=== PATIENT | female | born 1945 | race Caucasian/White ===

== ENCOUNTER 2016-10-17 03:42 | Inpatient (IN) | payer MEDICARE, MEDICAID ==
[~2016-10-17] VITALS: Ht 152.4 cm; Wt 54.4 kg
[~2016-10-17 03:42] MED LIST: ESCI20TA PO; HYDR8TAB2 PO; METO5TAB87 PO; MIRT45TA PO; OMEP40CA37 PO; QUET100T PO; QUET25TA PO; SIMV10TA6 PO; TEMA15CA5 PO; TRAZ-144 PO
--- NOTE | 2016-10-17 03:50 | NUR ---
BB RA 88; PT STATES RIGHT HIP/ LEG PAIN S/P GLF. PT AOX4 RR EVEN AND UNLABORED. NO SOB NOTED. NAD NOTED. NO NVD AT THIS TIME. PT NOT DIAPHORETIC. PT GOWNED AND PLACED ON MONITOR. PT NOTED WITH RIGHT LEG SHORTENING. DR. BARNES AT BEDSIDE FOR EVAL.
[2016-10-17] MEDS ORDERED: ONDANSETRON HCL/PF 4 MG/2 ML VIAL ONE (03:59)
[2016-10-17] MEDS ORDERED: HYDROMORPHONE 1 MG/1 ML DISP.SYRIN ONE ×4 (03:59→05:58)
[2016-10-17] MEDS ORDERED: HYDROMORPHONE INJ 2 MG/ML DISP.SYRIN IV ONE (04:00)
[2016-10-17] MEDS ORDERED: ONDANSETRON HCL/PF 4 MG/2 ML VIAL IVP ONE (04:00)
--- NOTE | 2016-10-17 04:17 | NUR ---
XRAY AT BEDSIDE
--- NOTE | 2016-10-17 04:28 | NUR ---
XRAY AT BESIDE FOR RIGHT KNEE
[2016-10-17] MEDS ORDERED: IV NS 0.9% 500 ML IV ONE (04:40)
[2016-10-17] MEDS ORDERED: IV SET PRIMARY 1 EA INFUS.SET MC ONE (04:40)
--- NOTE | 2016-10-17 04:54 | NUR ---
INSERTED F/C 16FR. VERBAL CONSENT BY PT. URINE COLLECTED. CALLED LAB FOR WOUND CARE SPECIALIST
--- NOTE | 2016-10-17 04:58 | NUR ---
RICCARDO MIRZA PAGED. WAITING FOR CALL BACK.
--- NOTE | 2016-10-17 04:59 | NUR ---
PT ASSIGNED TO 315-2
[2016-10-17] MEDS ORDERED: HYDROMORPHONE 1 MG/1 ML DISP.SYRIN IV ONE ×3 (05:00→06:30)
--- NOTE | 2016-10-17 05:00 | NUR ---
DR. BARNES SPEAKING TO DR. MILLER REGARDING ADMISSION
--- NOTE | 2016-10-17 05:02 | NUR ---
LAB AT BEDSIDE FOR BLOOD DRAW.
--- NOTE | 2016-10-17 05:07 | NUR ---
REPORT GIVEN TO FENG CARLSON FOR MS 315-2
--- NOTE | 2016-10-17 05:19 | NUR ---
VERBAL ORDERS PER DR. BARNES TO GIVE IVP DILAUDID 1MG ONE TIME. PT MEDICATED. PT ALSO WITH RIGHT LEG SPLINT.
[2016-10-17] MEDS ORDERED: IV NS 0.9% 1,000 ML BAG IV ONE (05:30)
--- NOTE | 2016-10-17 05:40 | NUR ---
DR. BARNES SPEAKING TO DR. MIRZA FOR ORTHO CONSULT.
--- NOTE | 2016-10-17 06:03 | NUR ---
VERBAL ORDERS PER DR BARNES TO GIVE IVP DILAUDID 1MG ONE TIME. PT MEDICATED ORDERED.
[2016-10-17] MEDS ORDERED: IV D5/0.45 NACL 1,000 ML IV PRN (06:30)
[2016-10-17] MEDS ORDERED: ONDANSETRON HCL/PF 4 MG/2 ML VIAL IVP PRN (06:30)
[2016-10-17] MEDS ORDERED: ENALAPRILAT DIHYD. (2.5MG/ML) 1.25 MG/ML VIAL IV PRN (06:30)
[2016-10-17] MEDS ORDERED: ACETAMINOPHEN 650 MG/SUPP.RECT RC PRN (06:30)
[2016-10-17 06:39] LABS: CALCIUM, SERUM 8.2 mg/dL (8.5-10.1); CREATININE 0.4 mg/dL (0.6-1.3)
[2016-10-17 06:41] LABS: BASOPHILS % (AUTO) 0.2 % (0.0-2.0); EOSINOPHILS % (AUTO) 0.1 % (0.0-6.0); HEMATOCRIT 39 % (33-45); HEMOGLOBIN 13.2 g/dL (11.5-14.8); LYMPHOCYTES # (AUTO) 1.2 /CMM (0.8-4.8); LYMPHOCYTES % (AUTO) 14.1 % (20.0-44.0); MEAN CORPUSCULAR HEMOGLOBIN 32 PG (26.0-33.0); MEAN CORPUSCULAR HGB CONC 34 g/dl (31.0-36.0); MEAN CORPUSCULAR VOLUME 94 fL (82-100); MONOCYTES # (AUTO) 0.7 /CMM (0.1-1.30); NEUTROPHILS # (AUTO) 6.8 /CMM (1.8-8.9); NEUTROPHILS % (AUTO) 77.6 % (43.0-81.0); PLATELET COUNT (AUTO) 345 /CMM (150-450); RDW COEFFICIENT OF VARIATION 13.4 (11.5-15.0); RED BLOOD CELL COUNT(AUTO) 4.12 MIL/uL (4.0-5.2); WHITE BLOOD COUNT (AUTO) 8.8 K/uL (4.3-11.0)
[2016-10-17 06:43] LABS: POTASSIUM 2.5 mmol/L (3.5-5.1)
[2016-10-17 06:48] LABS: INR 0.92 (0.87-1.13); PROTHROMBIN TIME 9.8 SECS (9.5-12.7)
[2016-10-17] MEDS ORDERED: IV PREMIX NS + 40 MEQ KCL 40 MEQ/L BAG IV ONE (06:50)
[2016-10-17] MEDS ORDERED: IV SET PRIMARY PUMP SET 1 EA INFUS.SET MC ONE ×2 (06:51→12:27)
[2016-10-17] MEDS ORDERED: Potassium Chloride 40 MEQ in IV NS 0.9% 1,000 ML IV ONE (07:00)
--- NOTE | 2016-10-17 07:00 | NUR ---
RECEIVED IVPB MEDICATION KCL 40MED IN NS 1000C PER RN SUP PYXIS
--- NOTE | 2016-10-17 07:06 | NUR ---
INFORMED TELE CRISTY STEWART PT IS NOW TELE PT.
--- NOTE | 2016-10-17 07:24 | NUR ---
PT TRANSFERED PER ACLS PROTOCOL.
--- NOTE | 2016-10-17 07:30 | NUR ---
RECEIVED PT FROM ER. PT AWAKE ALERT AND ORIENTED X 4. RESPIRATIONS EVEN AND UNLABORED. NO ACUTE DISTRESS NOTED. MUNOZ CATHETER IN PLACE WITH CLEAR YELLOW URINE. IV SITE PATENT AND INTACT. SKIN INTACT. PATIENT COMPLAINT OF PAIN 8/10 ON R LEG, PAIN MANAGEMENT INITIATED. BED IN LOWEST POSITION. SIDE RAILS UP. BEDSIDE TABLE WITHIN REACH. CALL LIGHT WITH IN REACH. WILL CONTINUE TO MONITOR.
[2016-10-17 08:00] VITALS: BP 148/69
[2016-10-17] MEDS ORDERED: Medication Not On Formulary EA (Escitalopram Oxalate (Lexapro) 20 MG) PO SCH (09:00)
[2016-10-17] MEDS: HYDROMORPHONE INJ 2 MG/ML DISP.SYRIN IV PRN ×6 (09:08→23:53)
[2016-10-17 09:16] LABS: THYROID STIMULATING HORMONE 2.235 uIU/mL (0.358-3.74)
[2016-10-17 09:37] LABS: MAGNESIUM 1.7 mg/dL (1.8-2.4); PHOSPHORUS 2.4 mg/dL (2.5-4.9)
[2016-10-17] MEDS ORDERED: CLONIDINE HCL 0.2MG/24H PTWK 1 EA PATCH TD SCH (10:00)
[2016-10-17] MEDS ORDERED: ESCITALOPRAM OXALATE (10 MG) 10 MG TABLET PO SCH (10:03)
[2016-10-17] MEDS: POTASSIUM CHLORIDE 20 MEQ TAB.PRT.SR PO SCH ×3 (10:23→12:32)
--- NOTE | 2016-10-17 11:19 | NUR ---
VTE SCORE 2. NO NEED FOR CHEMICAL PROPHYLAXIS PER DR VASQUEZ.
[2016-10-17 12:00] VITALS: BP 150/80
--- NOTE | 2016-10-17 12:00 | NUR ---
PT IS C/O DISCOMFORT ON MAG IV RUNNING AT 100 ML/HR.ADJUSTED ACCORDING TO PT'S COMFORT.WILL MONITOR.
[2016-10-17] MEDS: NICOTINE PATCH (21MG) 21 MG PATCH.TD24 TD SCH (12:08)
[2016-10-17] MEDS: QUETIAPINE FUMARATE 25 MG TABLET PO SCH ×3 (12:24→16:20)
[2016-10-17] MEDS: SIMVASTATIN 10 MG TABLET PO SCH (12:24)
[2016-10-17 12:25] VITALS: BP 158/80
[2016-10-17] MEDS ORDERED: SECONDARY IV SET 1 EA INFUS.SET MC ONE (12:28)
[2016-10-17] MEDS: Magnesium 1GM/D5W 100ML PREMIX 100 ML IV SCH ×2 (12:53→15:19)
[2016-10-17] MEDS ORDERED: METOCLOPRAMIDE HCL 10 MG TABLET PO SCH (13:00)
[2016-10-17] MEDS ORDERED: POTASSIUM PHOSPHATE MM 7.5 MMOL in IV D5W 100 ML IV SCH (13:00)
--- NOTE | 2016-10-17 14:06 | NUR ---
NOTIFIED SHREYAS ROSALES IF HE'S GOING TO SEE THE PT.BOBBY STATED THAT SX WILL BE DONE NOT TILL TOMORROW.NOTIFIED DR VASQUEZ WITH ORDERS TO LET PT EAT DINNER AND PUT HER ON NPO POST MIDNIGHT.
[2016-10-17 14:47] LABS: APPEARANCE,URINE CLEAR (CLEAR); BILIRUBIN,URINE NEGATIVE (NEGATIVE); BLOOD, URINE NEGATIVE Ery/uL (NEGATIVE); COLOR,URINE YELLOW (YELLOW); KETONES,URINE NEGATIVE (NEGATIVE); LEUKOCYTE ESTERASE ,URINE NEGATIVE (NEGATIVE); NITRITE, URINE NEGATIVE (NEGATIVE); PH,URINE 7.5 (5.0-8.0); PROTEIN,URINE NEGATIVE (NEGATIVE); UGLUCOSE NEGATIVE (NEGATIVE); UROBILINOGEN,URINE 0.2 EU/dL (0.2)
[2016-10-17] MEDS ORDERED: oxyCODONE IR immediate release 5 MG CAPSULE PO PRN (15:00)
[2016-10-17] MEDS: PREGABALIN 100 MG CAPSULE PO SCH ×2 (15:23→22:38)
[2016-10-17 16:00] VITALS: BP 142/71
[2016-10-17] MEDS: oxyCODONE IR immediate release 5 MG CAPSULE PO PRN ×2 (16:44→21:19)
--- NOTE | 2016-10-17 16:56 | NUR ---
PT ACCIDENTALLY DROPPED THE OXYCODONE HCL 10 MG PO AND TOOK NEW PILLS FROM THE PYX[facility].DISPENSED OLD OXYCODONE HCL 10 MG PILLS IN THE DISPENSER WITNESSED BY CO-RN,ASUNCION.
--- NOTE | 2016-10-17 18:00 | NUR ---
PT RESTING IN BED AND SIGNED ALL THE CONSENTS FOR RETROGRADE NAILING OF RT DISTAL FEMUR.INSTRUCTED TO BE NPO POST MIDNIGHT.PAIN MGT GIVEN EFFECTIVE WITH DILAUDID 2 MG IV AND OXYCODONE 10 MG PO.ENDORSED TO NIGHT NURSE CARE.
--- NOTE | 2016-10-17 19:30 | NUR ---
VENEER SORTER NOTE RECEIVED PATIENT AWAKE AND ALERT IN BED. NO RESPIRATORY DISTRESS OR SOB NOTED. STATES THAT SHE IS HAVING 9/10 PAIN TO RIGHT HIP. WILL ADMINISTER MEDICATION ORDERED. RELAXATION TECHNIQUES PROVIDED. PATIENT REFUSING TO BE REPOSITIONED AT THIS TIME. BED LOCKED AND IN LOWEST POSITION. SIDE RAILS UP, CALL LIGHT WITHIN REACH. WILL CONTINUE TO MONITOR.
[2016-10-17 20:00] VITALS: BP 132/71
--- NOTE | 2016-10-17 20:00 | NUR ---
SHEET METAL SHOP SUPERVISOR NOTE PATIENT REFUSING TO BE REPOSITIONED AT THIS TIME. EXPLAINED IMPORTANCE. CONTINUES TO REFUSE. WILL TRY AGAIN LATER.
[2016-10-17] MEDS: TRAZODONE 50 MG TABLET PO SCH (21:18)
[2016-10-17] MEDS: QUETIAPINE FUMARATE 100 MG TABLET PO SCH (21:18)
[2016-10-17 22:00] VITALS: BP 132/71
[2016-10-17] MEDS ORDERED: MIRTAZAPINE 15 MG TABLET PO SCH ×2 (22:00)
--- NOTE | 2016-10-17 22:00 | NUR ---
RESTAURANT AREA MANAGER NOTE PATIENT REFUSING TO BE REPOSITIONED AT THIS TIME. WILL TRY AGAIN LATER.
[2016-10-17] MEDS: TEMAZEPAM 15 MG CAPSULE PO SCH (22:38)
[2016-10-18] VITALS: BP 119/67
--- NOTE | 2016-10-18 | NUR ---
SENIOR NET DEVELOPER ARCHITECT NOTE PATIENT NPO AT THIS TIME FOR PROCEDURE IN AM. CONSENT SIGNED AND PLACED IN CHART.
[2016-10-18] MEDS: HYDROMORPHONE INJ 2 MG/ML DISP.SYRIN IV PRN ×6 (02:53→21:43)
[2016-10-18 04:00] VITALS: BP 111/65
--- NOTE | 2016-10-18 06:20 | NUR ---
COLLECTOR OF INTERNAL REVENUE NOTE SR 68. PATIENT STABLE. RECEIVED DILAUDID 2MG IVP @ 0600 FOR 8/10 PAIN TO RIGHT HIP. PATIENT NPO FOR SURGERY. CONSENT AND PRE-OP CHECKLIST IN CHART. WILL ENDORSE TO DAY SHIFT FOR ELLIS.
[2016-10-18 07:10] VITALS: BP 117/72
[2016-10-18] MEDS: PANTOPRAZOLE 40 MG TABLET.DR PO SCH (07:30)
[2016-10-18 07:56] LABS: BASOPHILS % (AUTO) 0.2 % (0.0-2.0); EOSINOPHILS # (AUTO) 0.1 /CMM (0.0-0.7); EOSINOPHILS % (AUTO) 1.6 % (0.0-6.0); HEMATOCRIT 31 % (33-45); HEMOGLOBIN 10.7 g/dL (11.5-14.8); LYMPHOCYTES # (AUTO) 2.2 /CMM (0.8-4.8); LYMPHOCYTES % (AUTO) 25.4 % (20.0-44.0); MEAN CORPUSCULAR HEMOGLOBIN 33 PG (26.0-33.0); MEAN CORPUSCULAR HGB CONC 34 g/dl (31.0-36.0); MEAN CORPUSCULAR VOLUME 96 fL (82-100); MONOCYTES # (AUTO) 1.2 /CMM (0.1-1.30); MONOCYTES % (AUTO) 14.4 % (2.0-12.0); NEUTROPHILS % (AUTO) 58.4 % (43.0-81.0); PLATELET COUNT (AUTO) 295 /CMM (150-450); RDW COEFFICIENT OF VARIATION 13.3 (11.5-15.0); RED BLOOD CELL COUNT(AUTO) 3.26 MIL/uL (4.0-5.2); WHITE BLOOD COUNT (AUTO) 8.6 K/uL (4.3-11.0)
[2016-10-18 08:00] VITALS: BP 117/72
[2016-10-18 08:30] LABS: ALBUMIN 2.1 g/dL (3.4-5.0); BILIRUBIN,TOTAL 0.3 mg/dL (0.2-1.0); CALCIUM, SERUM 7.6 mg/dL (8.5-10.1); CREATININE 0.3 mg/dL (0.6-1.3); PHOSPHORUS 2.2 mg/dL (2.5-4.9); POTASSIUM 3.6 mmol/L (3.5-5.1); TOTAL PROTEIN, SERUM 5.2 g/dL (6.4-8.2)
[2016-10-18] MEDS: PREGABALIN 100 MG CAPSULE PO SCH ×3 (09:00→18:45)
[2016-10-18] MEDS: SIMVASTATIN 10 MG TABLET PO SCH (09:00)
[2016-10-18] MEDS: QUETIAPINE FUMARATE 25 MG TABLET PO SCH ×3 (09:00→18:45)
[2016-10-18] MEDS: NICOTINE PATCH (21MG) 21 MG PATCH.TD24 TD SCH (09:06)
[2016-10-18] MEDS ORDERED: Sodium Phosphate 15 MMOL in IV D5W 250 ML IV ONE (10:00)
[2016-10-18] MEDS ORDERED: BACITRACIN 50000 UNITS/VIAL ONE (11:00)
[2016-10-18] MEDS ORDERED: CLINDAMYCIN 900 MG/6 ML VIAL ONE (11:21)
--- NOTE | 2016-10-18 11:22 | NUR ---
LEFT TO OR AT THIS TIME IN STABLE CONDITION. KARLOS-OPO NURSE AWARE OF DILAUDID @ 0900 ADMIN. PATIENT NPO SINCE LAST NIGHT. VS CHECKED AND STABLE. LAC IV PATENT, NON-TENDER. NO COMPLICATIONS WITH MUNOZ CATHETER.
[2016-10-18] MEDS ORDERED: HYDROMORPHONE INJ 2 MG/ML DISP.SYRIN ONE (11:28)
[2016-10-18] MEDS ORDERED: NEUTRA PHOS 1 POWD.PACKET PO ONE (12:00)
[2016-10-18] MEDS ORDERED: BUPIVACAINE 0.5 % PF 150 MG/30 ML VIAL ONE (12:37)
[2016-10-18] MEDS ORDERED: HYDROMORPHONE 1 MG/1 ML DISP.SYRIN ONE ×2 (13:37→13:50)
[2016-10-18] MEDS ORDERED: ANESTHESIA TRAY IN PYXIS 1 EA TRAY MC ONE (14:23)
[2016-10-18] MEDS: oxyCODONE IR immediate release 5 MG CAPSULE PO PRN (15:56)
[2016-10-18 16:00] VITALS: BP 120/84
[2016-10-18] MEDS ORDERED: K PHOS NEUTRAL 250 MG TABLET PO ONE (16:00)
--- NOTE | 2016-10-18 16:03 | NUR ---
patient crying with 10/10 pain. Administered Dilaudid and Oxycodone as ordered. after administration BP 122/84, hr 75, o2 sat 95% on room air, RR 14. provided education and comfort measures at length to console patient.
--- NOTE | 2016-10-18 18:50 | NUR ---
patient consuming adequate PO intake, calin gave verbal orders to d/c iv fluids. patient complaining of 190/10m pain at this time. bp 160/74, hr 72, o2 sat 95%, admin dilaudid
--- NOTE | 2016-10-18 19:35 | NUR ---
POLICE CRIME SCENE TECHNICIAN NOTE RECEIVED PATIENT FROM DAY SHIFT, PATIENT HAD SX TODAY ON RIGHT FEMUR IM RODDING, NO S/S OF RESPIRATORY DISTRESS AND COMPLAINS OF PAIN ON RIGHT LEG. TELE MONITOR SR. SRX2, BED IN LOW POSITION, CALL LIGHT WITHIN REACH, WILL CONTINUE TO MONITOR PATIENT. Addendum: 10/18/16 at 2210 by JASON FINLEY RN MUNOZ CATH PRESENT WITH CLEAR YELLOW URINE.
--- NOTE | 2016-10-18 19:47 | NUR ---
end of shift VS, LOC and breathing stable at end of shift. handed off report. educated patient on caution with narcotic use this shift.
[2016-10-18 20:00] VITALS: BP 145/76
[2016-10-18] MEDS: TRAZODONE 50 MG TABLET PO SCH (21:43)
[2016-10-18] MEDS: QUETIAPINE FUMARATE 100 MG TABLET PO SCH (21:43)
[2016-10-18] MEDS: TEMAZEPAM 15 MG CAPSULE PO SCH (22:46)
[2016-10-18] MEDS ORDERED: SECONDARY IV SET 1 EA INFUS.SET MC ONE ×2 (23:06→23:16)
[2016-10-18] MEDS: CLINDAMYCIN 900 MG in IV D5W 50 ML IV SCH (23:26)
[2016-10-19] VITALS: BP 124/68
[2016-10-19 04:00] VITALS: BP 135/75
[2016-10-19] MEDS: HYDROMORPHONE INJ 2 MG/ML DISP.SYRIN IV PRN ×7 (05:26→23:31)
--- NOTE | 2016-10-19 06:43 | NUR ---
HOTEL SERVICES SUPERVISOR NOTE PATIENT IS RESTING IN BED COMFORTABLY, NO S/S OF RESPIRATORY DISTRESS AND COMPLAINS OF PAIN ON RIGHT LEG. IV ON LEFT AC IS PATENT AND INTACT, HL ONLY. DILAUDID GIVEN AT 0530 PER PATIENT'S REQUEST, PAIN LEVEL WAS 9/10. TELE SR 83. WILL ENDORSE TO DAY SHIFT FOR ELLIS.
[2016-10-19] MEDS: PANTOPRAZOLE 40 MG TABLET.DR PO SCH (07:30)
[2016-10-19 08:00] VITALS: BP 139/83
--- NOTE | 2016-10-19 08:00 | NUR ---
MS RN RECEIVED ON BED, AWAKE,ALERT,ORIENTED X4,NOT IN ANY FORM OF DISTRESS, RESPIRATIONS EVEN AND UNLABORED,NO SOB NOTED, LUNGS ARE CLEAR,ABDOMEN SOFT,POSITIVE BOWEL SOUNDS / S/P RIGHT KNEE SX, DENIES PAIN, WILL MONITOR PATIENT'S CONDITION.
[2016-10-19 08:58] LABS: CALCIUM, SERUM 8.1 mg/dL (8.5-10.1); CREATININE 0.4 mg/dL (0.6-1.3); PHOSPHORUS 3.1 mg/dL (2.5-4.9); POTASSIUM 3.3 mmol/L (3.5-5.1)
[2016-10-19] MEDS: NICOTINE PATCH (21MG) 21 MG PATCH.TD24 TD SCH (09:00)
[2016-10-19] MEDS: ENOXAPARIN SODIUM 40 MG/0.4 ML DISP.SYRIN SQ SCH (09:00)
[2016-10-19] MEDS: SIMVASTATIN 10 MG TABLET PO SCH (09:00)
[2016-10-19] MEDS: PREGABALIN 100 MG CAPSULE PO SCH ×3 (09:00→17:28)
[2016-10-19] MEDS: QUETIAPINE FUMARATE 25 MG TABLET PO SCH ×3 (09:00→17:28)
[2016-10-19] MEDS ORDERED: ERGOCALCIFEROL (VITAMIN D 2) 50,000 UNIT CAPSULE PO SCH (09:30)
--- NOTE | 2016-10-19 09:50 | NUR ---
MS TONEY BREAKFAST SERVED,DUE MEDS GIVEN,TOLERATED WELL,.
--- NOTE | 2016-10-19 11:00 | NUR ---
MS RN WAS SEEN BY PT,TOLERATED WELL.
[2016-10-19] MEDS: CLINDAMYCIN 900 MG in IV D5W 50 ML IV SCH (12:21)
[2016-10-19] MEDS ORDERED: POTASSIUM CHLORIDE 20 MEQ TAB.PRT.SR PO SCH (12:30)
--- NOTE | 2016-10-19 18:00 | NUR ---
MS RN ON BED,NO DISTRESS NOTED,ALL NEEDS ATTENDED.
--- NOTE | 2016-10-19 19:30 | NUR ---
MS RN NOTE RECEIVED PATIENT FROM DAY SHIFT, PATIENT IS ALERT AND ORIENTEDX3, DENIES RESPIRATORY DISTRESS AND COMPLAINS OF PAIN ON RIGHT LEG DUE TO SX. WILL ADMINISTER PAIN MED WHEN IT IS DUE. IV ON LEFT WRIST IS PATENT AND INTACT, HL. SRX2, BED IN LOW POSITION, CALL LIGHT WITHIN REACH, WILL CONTINUE TO MONITOR PATIENT.
[2016-10-19 20:00] VITALS: BP 103/64
[2016-10-19] MEDS: QUETIAPINE FUMARATE 100 MG TABLET PO SCH (22:15)
[2016-10-19] MEDS: TRAZODONE 50 MG TABLET PO SCH (22:15)
[2016-10-19] MEDS: TEMAZEPAM 15 MG CAPSULE PO SCH (22:15)
[2016-10-20] MEDS: oxyCODONE IR immediate release 5 MG CAPSULE PO PRN ×3 (00:16→18:52)
--- NOTE | 2016-10-20 00:20 | NUR ---
MS RN NOTE PATIENT IS CRYING AND MOANING FOR PAIN. OXY IR 10MG PO GIVEN. WILL MONITOR EFFECTIVENESS.
[2016-10-20] MEDS: HYDROMORPHONE INJ 2 MG/ML DISP.SYRIN IV PRN ×7 (02:28→21:11)
--- NOTE | 2016-10-20 06:38 | NUR ---
MS RN NOTE PATIENT IS RESTING IN BED COMFORTABLY, NO S/S OF RESPIRATORY DISTRESS AND NO FACIAL GRIMACE NOTED FOR PAIN. IV ON LEFT WRIST IS PATENT AND INTACT, HL. WILL ENDORSE TO DAY SHIFT FOR ELLIS.
--- NOTE | 2016-10-20 07:30 | NUR ---
MS/RN OPENING NOTE PT. IS IN BED, AWAKE, A&OX4. NO SOB. NO S/S OF ACUTE DISTRESS. PT. HAS LEFT HAND IV ACCESS. BED IS IN LOW POSITION, 2 RAILS UP, CALL LIGHT WITHIN REACH, AND ALL NEEDS MET. ADVISED PT. TO USE CALL LIGHT FOR ASSISTANCE. WILL CONTINUE TO ASSESS AND MONITOR.
[2016-10-20 07:31] LABS: CALCIUM, SERUM 8.1 mg/dL (8.5-10.1); CREATININE 0.3 mg/dL (0.6-1.3); POTASSIUM 3.6 mmol/L (3.5-5.1)
[2016-10-20 08:00] VITALS: BP_SYST 130; BP_DIAS 7; BP_DIAS 76
[2016-10-20] MEDS: PANTOPRAZOLE 40 MG TABLET.DR PO SCH (08:52)
[2016-10-20] MEDS: PREGABALIN 100 MG CAPSULE PO SCH ×3 (08:52→18:00)
[2016-10-20] MEDS: SIMVASTATIN 10 MG TABLET PO SCH (08:52)
[2016-10-20] MEDS: NICOTINE PATCH (21MG) 21 MG PATCH.TD24 TD SCH (08:53)
[2016-10-20] MEDS: ENOXAPARIN SODIUM 40 MG/0.4 ML DISP.SYRIN SQ SCH (09:00)
--- NOTE | 2016-10-20 09:00 | NUR ---
MS/RN NOTES PT. REFUSED LOVENOX DUE TO PT. SAYING THE INJECTION IS TOO PAINFUL. LOVENOX WAS NOT GIVEN.
[2016-10-20] MEDS: QUETIAPINE FUMARATE 25 MG TABLET PO SCH ×3 (09:05→18:00)
[2016-10-20] MEDS: TIZANIDINE HCL 4 MG TABLET PO SCH ×2 (10:10→21:11)
[2016-10-20] MEDS ORDERED: IPRATROPIUM NEB FS 0.5 MG/2.5 ML AMPUL.NEB NEB PRN (10:30)
[2016-10-20] MEDS ORDERED: ALBUTEROL FS 2.5 MG/0.5 ML VIAL.NEB NEB PRN (10:30)
[2016-10-20] MEDS ORDERED: oxyCODONE IR immediate release 5 MG CAPSULE PO PRN (11:00)
--- NOTE | 2016-10-20 14:12 | NUR ---
MS/RN NOTES PT. WAS SEEN BY PHYSICAL THERAPY. PER PT. NO WEIGHT BEARING ON RIGHT LEG PER PHYSICAL THERAPIST. PT. WAS ABLE TO SIT AT THE EDGE OF THE BED TODAY, BUT WAS UNABLE TO STAND.
[2016-10-20 15:44] LABS: BASOPHILS % (AUTO) 0.3 % (0.0-2.0); EOSINOPHILS # (AUTO) 0.2 /CMM (0.0-0.7); EOSINOPHILS % (AUTO) 1.9 % (0.0-6.0); HEMATOCRIT 29 % (33-45); HEMOGLOBIN 9.8 g/dL (11.5-14.8); LYMPHOCYTES # (AUTO) 2.7 /CMM (0.8-4.8); MEAN CORPUSCULAR HEMOGLOBIN 32 PG (26.0-33.0); MEAN CORPUSCULAR HGB CONC 34 g/dl (31.0-36.0); MEAN CORPUSCULAR VOLUME 95 fL (82-100); MONOCYTES # (AUTO) 1.3 /CMM (0.1-1.30); MONOCYTES % (AUTO) 10.9 % (2.0-12.0); NEUTROPHILS # (AUTO) 7.6 /CMM (1.8-8.9); NEUTROPHILS % (AUTO) 63.9 % (43.0-81.0); PLATELET COUNT (AUTO) 351 /CMM (150-450); RDW COEFFICIENT OF VARIATION 13.1 (11.5-15.0); RED BLOOD CELL COUNT(AUTO) 3.06 MIL/uL (4.0-5.2); WHITE BLOOD COUNT (AUTO) 11.9 K/uL (4.3-11.0)
[2016-10-20 15:59] LABS: CALCIUM, SERUM 8.4 mg/dL (8.5-10.1); CREATININE 0.4 mg/dL (0.6-1.3); POTASSIUM 4.1 mmol/L (3.5-5.1)
[2016-10-20 16:00] VITALS: BP 119/70
--- NOTE | 2016-10-20 19:45 | NUR ---
MS/RN CLOSING NOTE PT. IS IN BED AWAKE, A&OX4. NO SOB, NO S/S OF ACUTE DISTRESS. PT. HAS LEFT HAND IV ACCESS. BED IS IN LOW POSITION, INITIAL SURGICAL DRESSING WAS CHANGED BY DOCTOR, RIGHT LEG IS WRAPPED IN BANDAGE WITH NO SIGNS OF DRAINAGE. PT. IS WEARING DVT PUMPS ON BOTH LEGS. BED IS IN LOW POSITION, 2 SIDE RAILS UP , AND ALL NEEDS ATTENDED TO. ADVISED PT. TO USE CALL LIGHT FOR ASSISTANCE.
--- NOTE | 2016-10-20 19:45 | NUR ---
RN OPENING NOTES RECEIVED REPORT FROM RADHA RNEVELYN. FOUND Pt AWAKE IN BED. NO S/S OF ACUTE DISTRESS OR SOB NOTED. Pt IS A/OX4. Pt C/O PAIN, WILL PROVIDE PAIN MED WHEN TIME IS DUE. IV ACCESS L WRIST #24G, SL. SAFETY MEASURES IN PLACE. BED LOW, LOCKED, HOB ELEVATED, SIDE RAILS UP, BED ALARM ON, CALL LIGHT AND BEDSIDE TABLE WITHIN REACH. WILL CONTINUE TO MONITOR Pt THROUGHOUT THE NIGHT FOR SAFETY
[2016-10-20 20:00] VITALS: BP 110/63
[2016-10-20] MEDS: TEMAZEPAM 15 MG CAPSULE PO SCH (21:59)
[2016-10-20] MEDS: TRAZODONE 50 MG TABLET PO SCH (21:59)
[2016-10-20] MEDS: QUETIAPINE FUMARATE 100 MG TABLET PO SCH (21:59)
[2016-10-21] MEDS: HYDROMORPHONE INJ 2 MG/ML DISP.SYRIN IV PRN ×3 (06:14→13:08)
[2016-10-21 06:47] LABS: CALCIUM, SERUM 8.7 mg/dL (8.5-10.1); CREATININE 0.4 mg/dL (0.6-1.3); POTASSIUM 3.9 mmol/L (3.5-5.1)
--- NOTE | 2016-10-21 06:48 | NUR ---
RN CLOSING NOTES NO SIGNIFICANT CHANGES DURING THE NIGHT. NO S/S OF ACUTE DISTRESS OR SOB. ALL NEEDS MET AND ATTENDED TO. WILL ENDORSE TO DAYSHIFT RN FOR Pt's ELLIS.
--- NOTE | 2016-10-21 07:30 | NUR ---
MS/RN OPENING NOTES PT. IS IN BED AWAKE, A&OX4. NO SOB, NO S/S OF ACUTE DISTRESS. BED IS IN LOW POSITION, CALL LIGHT WITHIN REACH, AND ALL NEEDS MET. WILL CONTINUE TO ASSESS AND MONITOR.
[2016-10-21 08:00] VITALS: BP 143/79
[2016-10-21] MEDS: ENOXAPARIN SODIUM 40 MG/0.4 ML DISP.SYRIN SQ SCH (09:00)
[2016-10-21] MEDS: PREGABALIN 100 MG CAPSULE PO SCH ×2 (09:26→13:06)
[2016-10-21] MEDS: NICOTINE PATCH (21MG) 21 MG PATCH.TD24 TD SCH (09:26)
[2016-10-21] MEDS: TIZANIDINE HCL 4 MG TABLET PO SCH (09:26)
[2016-10-21] MEDS: QUETIAPINE FUMARATE 25 MG TABLET PO SCH ×2 (09:27→13:06)
[2016-10-21] MEDS: PANTOPRAZOLE 40 MG TABLET.DR PO SCH (09:27)
[2016-10-21] MEDS: SIMVASTATIN 10 MG TABLET PO SCH (09:27)
--- NOTE | 2016-10-21 09:40 | NUR ---
MS/RN NOTES WHEN ADMINISTERING IV PUSH MEDICATION, LEFT HAND IV WAS OUT, NO S/S OF BLEEDING, PT. CANNOT TELL ME WHEN IT CAME OFF. NEW IV WAS RESTARTED ON LEFT HAND.
[2016-10-21] MEDS ORDERED: OXYC5CAP3 PO (10:41)
[2016-10-21] MEDS ORDERED: IPRA0.2S9 NEB (10:41)
[2016-10-21] MEDS ORDERED: QUET25TA PO (10:41)
[2016-10-21] MEDS ORDERED: HYDR2DIS IV (10:41)
[2016-10-21] MEDS ORDERED: TIZA4TAB4 PO (10:41)
[2016-10-21] MEDS ORDERED: CLON1PAT2 TD (10:41)
[2016-10-21] MEDS ORDERED: NICO1PAT28 TD (10:41)
[2016-10-21] MEDS ORDERED: SIMV10TA6 PO (10:41)
[2016-10-21] MEDS ORDERED: PANT40TA2 PO (10:41)
[2016-10-21] MEDS ORDERED: Ergocalciferol (Vitamin D 2) PO (10:41)
[2016-10-21] MEDS ORDERED: ENOX40DI SQ (10:41)
[2016-10-21] MEDS ORDERED: QUET100T PO (10:41)
[2016-10-21] MEDS ORDERED: PREG100C PO (10:41)
[2016-10-21] MEDS ORDERED: ALBU2.5V13 NEB (10:41)
[2016-10-21] MEDS ORDERED: TRAZ-144 PO (10:41)
[2016-10-21] MEDS ORDERED: TEMA15CA5 PO (10:41)
--- NOTE | 2016-10-21 11:00 | NUR ---
MS/RN NOTES UNABLE TO ASSES SURGICAL SITE ON RIGHT LEG PER ORTHOPEDIC DOCTOR DISCHARGE INSTRUCTION ORDERS. DRESSING IS UNREMOVABLE AT THIS TIME AND WILL BE ASSESSED BY DOCTOR IN THE OFFICE IN 1-2 WEEK.
[2016-10-21] MEDS ORDERED: PNEUMOCOCCAL 23-VAL P-SAC VAC 0.5 ML VIAL SQ ONE (12:00)
--- NOTE | 2016-10-21 13:45 | NUR ---
MS/CARE TRANSITION COORDINATOR PT. WAS DISCHARGED TO [facility] BY AMBULANCE TO ON A GURNEY IN MEDICALLY STABLE CONDITION. REPORT WAS GIVEN TO NURSE AT [facility], AND TO AMBULANCE. PT. RECEIVED PNEUMONIA VACCINE. ID BAND WAS REMOVED. LEFT HAND IV WAS LEFT INTACT ON DISCHARGE, AND NURSE AT [facility] WAS NOTIFIED IV WILL BE LEFT IN, BRYCE AREVALO ELECTRIC ORGAN ASSEMBLER IS AWARE. PT. HAD MUNOZ REMOVED 145 ML OUTPUT. PICTURE WAS TAKEN OF A SKIN TEAR ON RIGHT TOP OF WRIST. SKIN TEAR WAS CLEANED AND BAND AID WAS APPLIED. PT. VERBALIZED DISCHARGE INSTRUCTIONS, AND SIGNED ALL PAPERS. DISCHARGE PACKET WAS GIVEN TO AMBULANCE TO BE TAKEN TO [facility]. BELONGINGS WERE CHECKED AND PT. SIGNED LIST.
== END 2016-10-21 13:45 | DRG 482 ==
LOC: ER 03:44 → MED 04:46 → TELE 06:59 → MED 10-19 10:52
PROVIDERS: ADMIT Internal Medicine; ATTEND Internal Medicine
PROC: 0QSB06Z Reposition Right Lower Femur with Intramedullary Internal Fixation Device, Open Approach (ICD-10-PCS; principal; 2016-10-18 11:53)
DX: M97.11XA Periprosthetic fracture around internal prosthetic right knee joint, initial encounter (principal); I10 Essential (primary) hypertension; J44.9 Chronic obstructive pulmonary disease, unspecified; G89.4 Chronic pain syndrome; M48.00 Spinal stenosis, site unspecified; W18.30XA Fall on same level, unspecified, initial encounter; E87.6 Hypokalemia; Z79.899 Other long term (current) drug therapy; I25.10 Atherosclerotic heart disease of native coronary artery without angina pectoris; F17.200 Nicotine dependence, unspecified, uncomplicated; Y92.009 Unspecified place in unspecified non-institutional (private) residence as the place of occurrence of the external cause; Y83.9 Surgical procedure, unspecified as the cause of abnormal reaction of the patient, or of later complication, without mention of misadventure at the time of the procedure; Y79.2 Prosthetic and other implants, materials and accessory orthopedic devices associated with adverse incidents; F32.9 Major depressive disorder, single episode, unspecified
CPT/HCPCS: 36415; 71010-TC; 73502; 73552; 73560-TC; 73564-TC; 80048-TC; 80053-TC; 80061-TC; 81000-TC; 82306; 83735-TC; 84100-TC; 84439-TC; 84443-TC; 84484-TC; 85025-TC; 85730-TC; 86850-TC; 87081-TC; 90732; 93307-TC; 97001-TC; 97110-TC; 97530-TC; A4606; A6402; A9563; J0360; J1100; J1170; J1650; J2405; J2704; J3475; J3480; J3490; J7030; J7040; J7060; Z7610

== ENCOUNTER 2017-04-06 12:25 | Emergency (ER) | payer MEDICARE, MEDICAID ==
[~2017-04-06] VITALS: Ht 152.4 cm; Wt 53.1 kg
[2017-04-06 12:25] VITALS: BP 157/70
[~2017-04-06 12:25] MED LIST changes: +ALBU2.5V13 NEB; +CLON1PAT2 TD; +ENOX40DI SQ; -ESCI20TA PO; +Ergocalciferol (Vitamin D 2) PO; +HYDR2DIS IV; -HYDR8TAB2 PO; +IPRA0.2S9 NEB; -METO5TAB87 PO; -MIRT45TA PO; +NICO1PAT28 TD; -OMEP40CA37 PO; +OXYC5CAP3 PO; +PANT40TA2 PO; +PREG100C PO; +TIZA4TAB4 PO
[2017-04-06] MEDS ORDERED: KETOROLAC TROMETHAMINE INJ 60 MG/2 ML VIAL IM ONE ×2 (13:30→13:37)
--- NOTE | 2017-04-06 13:56 | NUR ---
CALLED [facility] FOR TRANSPORT ETA OF 40MINS WAS GIVEN.
== END 2017-04-06 14:47 | disposition left against medical advice (07) ==
LOC: ER 12:26
DX: G89.29 Other chronic pain (principal); M54.5 Low back pain; I10 Essential (primary) hypertension; Z98.890 Other specified postprocedural states; Z88.0 Allergy status to penicillin; Z88.2 Allergy status to sulfonamides; Z88.8 Allergy status to other drugs, medicaments and biological substances
CPT/HCPCS: 72131; 96372; 99284; A4606; J1885; Z7610

== ENCOUNTER 2017-04-24 08:01 | Inpatient (IN) | payer MEDICARE, MEDICAID ==
[~2017-04-24] VITALS: Ht 152.4 cm; Wt 44.5 kg
--- NOTE | 2017-04-24 08:01 | NUR ---
BRBA FROM HOME FOR AMS. BS-60MG/DL C/O CHRONIC BACK PAIN. PLACED ON MONITOR. AWAITING MD ORDER
[2017-04-24] MEDS ORDERED: IV NS 0.9% 500 ML BAG IV ONE (08:30)
--- NOTE | 2017-04-24 08:38 | NUR ---
EMBROIDERY FINISHER AT BEDSIDE
[2017-04-24] MEDS ORDERED: PANT40TA2 PO (08:50)
[2017-04-24] MEDS ORDERED: CHOL400T28 PO (08:50)
[2017-04-24] MEDS ORDERED: CALC600T12 PO (08:50)
[2017-04-24] MEDS ORDERED: TEMA30CA PO (08:50)
[2017-04-24] MEDS ORDERED: ESCI20TA PO (08:50)
[2017-04-24] MEDS ORDERED: OXYC-128 PO (08:50)
[2017-04-24] MEDS ORDERED: HYDROCODONE/APAP 5/325MG 1 EACH TABLET ONE (09:03)
--- NOTE | 2017-04-24 09:29 | NUR ---
PT REFUSED TO GIVE URINE SAMPLE AT THIS TIME .MD GALVIN
[2017-04-24] MEDS ORDERED: HYDROCODONE/APAP 5/325MG 1 EACH TABLET PO ONE (09:30)
[2017-04-24 09:40] LABS: BASOPHILS % (AUTO) 0.2 % (0.0-2.0); EOSINOPHILS # (AUTO) 0.1 /CMM (0.0-0.7); HEMATOCRIT 44 % (33-45); HEMOGLOBIN 14.4 g/dL (11.5-14.8); LYMPHOCYTES # (AUTO) 1.9 /CMM (0.8-4.8); LYMPHOCYTES % (AUTO) 13.9 % (20.0-44.0); MEAN CORPUSCULAR HEMOGLOBIN 32 PG (26.0-33.0); MEAN CORPUSCULAR HGB CONC 32 g/dl (31.0-36.0); MEAN CORPUSCULAR VOLUME 100 fL (82-100); MONOCYTES # (AUTO) 0.6 /CMM (0.1-1.30); MONOCYTES % (AUTO) 4.2 % (2.0-12.0); NEUTROPHILS % (AUTO) 80.7 % (43.0-81.0); PLATELET COUNT (AUTO) 408 /CMM (150-450); RDW COEFFICIENT OF VARIATION 16.4 (11.5-15.0); RED BLOOD CELL COUNT(AUTO) 4.47 MIL/uL (4.0-5.2); WHITE BLOOD COUNT (AUTO) 13.7 K/uL (4.3-11.0)
[2017-04-24 09:51] LABS: CALCIUM, SERUM 8.9 mg/dL (8.5-10.1); CREATININE 0.7 mg/dL (0.6-1.3); POTASSIUM 3.5 mmol/L (3.5-5.1)
--- NOTE | 2017-04-24 09:57 | NUR ---
PAGED [facility] -- INTERIOR BLOCK WIRER IS DR MATHEW VERA.
[2017-04-24 09:58] LABS: ALBUMIN 2.8 g/dL (3.4-5.0); BILIRUBIN,DIRECT 0.3 mg/dL (0.0-0.2); BILIRUBIN,TOTAL 0.8 mg/dL (0.2-1.0); TOTAL PROTEIN, SERUM 6.4 g/dL (6.4-8.2)
[2017-04-24 10:00] LABS: TROPONIN I 0.037 ng/mL (0.00-0.056)
[2017-04-24 10:11] LABS: INR 1.06 (0.87-1.13)
--- NOTE | 2017-04-24 10:27 | NUR ---
GAVE REPORT TO JESSICA TONEY MEDSRUG INTRACTABLE BACK PAIN . DR CARMONA ADMINTTING.
--- NOTE | 2017-04-24 10:40 | NUR ---
MS RN NOTES RECEIVED PT FROM ER NURSE IN STABLE CONDITION. PT IS A/O X2-3. PT IS SOB UPON EXERTION. SHE IS ON 3L VIA NC AND SATING WELL @ 98%. PT COMPLAINS OF GENERALIZED CHRONIC BACK PAIN RATED A 9/10. HEATING PAD PLACED ON BACK FOR COMFORT AND RELIEF UNTIL PRN PAIN MEDICATIONS ORDERS ARE IMPUTED BY MD. PT ORIENTED TO ROOM AND USE OF CALL LIGHT. SHE VERBALIZED UNDERSTANDING OF INSTRUCTIONS. BELONGINGS REVIEWED BY BACON SKIN LIFTER. PT'S HOME MEDICATIONS COLLECTED AND SENT TO PHARMACY. WILL CONTINUE ADMISSION PROCESS AND AWAIT FURTHER ORDERS FROM
--- NOTE | 2017-04-24 11:15 | NUR ---
MS RN NOTES DR. CARMONA MADE AWARE THAT PT IS ON THE FLOOR. CURRENTLY AWAITING ORDERS
--- NOTE | 2017-04-24 11:41 | NUR ---
MS RN NOTES DR. CARMONA AT BEDSIDE WITH PT
[2017-04-24] MEDS ORDERED: MAG HYDROX/AL HYDROX/SIMETH 30 ML UDC PO PRN (12:30)
[2017-04-24] MEDS ORDERED: Z GUARD REMEDY 2 OZ OINT TP PRN (12:30)
[2017-04-24] MEDS ORDERED: ACETAMINOPHEN 325 MG TABLET PO PRN (12:30)
[2017-04-24] MEDS ORDERED: ZOLPIDEM TARTRATE 5 MG TABLET PO PRN (12:30)
[2017-04-24] MEDS ORDERED: MAGNESIUM HYDROXIDE 30 ML UDC PO PRN (12:30)
[2017-04-24] MEDS: oxyCODONE/APAP (5/325 MG) 1 UDTAB TABLET PO PRN ×2 (12:45→17:27)
[2017-04-24] MEDS: IV D5/0.45 NACL 1,000 ML IV PRN (12:46)
[2017-04-24] MEDS ORDERED: LEVOFLOXACIN 750 MG /D5W 150ML 750 MG in PREMIX 1 EA IV SCH ×2 (13:30→14:00)
--- NOTE | 2017-04-24 14:35 | NUR ---
MS RN NOTES DR. CARMONA NOTIFIED THAT PT IS REFUSING MUNOZ INSERTION ALONG WITH IV FLUIDS. ORDER VERIFIED IN REGARDS TO NG TUBE INSERTION. PER DR. CARMONA "CANCEL ORDER". PT. ALSO HAS BILATERAL LOWER EXTREMITY EDEMA, DENIES PAIN TO LOWER EXTREMITIES, BUT LEFT LEG IS SLIGHTLY MORE EDEMATOUS THAN RIGHT. PER DR. CARMONA "PLACE AN ORDER FRO BILATERAL VENOUS DOPPLER". WILL CARRY OUT ALL ORDERS
[2017-04-24] MEDS: CALCIUM CARBONATE 500 MG TAB.CHEW PO SCH (15:11)
[2017-04-24] MEDS: HYDROCODONE/APAP 5/325MG 1 EACH TABLET PO PRN ×2 (15:30→20:26)
[2017-04-24 16:00] VITALS: BP 158/92
--- NOTE | 2017-04-24 18:47 | NUR ---
MS RN CLOSING NOTES PT REMAINS STABLE SINCE TIME OF ADMISSION. PAIN WELL MANAGED WITH PRN MEDICATION. PT IS RESTING COMFORTABLY IN BED. VITAL SIGNS STABLE AT THIS TIME. ALL NEEDS WERE MET DURING SHIFT AND ORDERS CARRIED OUT ACCORDINGLY. ALL DUE MEDS GIVE. WILL ENDORSE TO NIGHTSHIFT NURSE FOR ELLIS
[2017-04-24 20:00] VITALS: BP 130/88
--- NOTE | 2017-04-24 20:00 | NUR ---
RN NOTES PATIENT IN BED, ALERT AND ORIENTED X2, WHINING VERY LOUD, NOT TELLING WHY, PATIENT RECEIVED PERCOCET 2 HOURS AGO. NO RESPIRATORY DISTRESS, SPO2 AT ROOM AIR 99%, HAS CHRONIC BACK PAIN, WILL PROVIDE PAIN MEDICATION SOON IT'S DUE. NOTED VERY WET DIAPER WITH ADEQUATE URINE OUTPUT. NEEDS ATTENDED, CALL LIGHT WITHIN REACH.
--- NOTE | 2017-04-24 20:30 | NUR ---
RN NOTES PATIENT ABLE TO PROVIDE URINE SAMPLE. TRANSFERRED TO ROOM 208-1.
[2017-04-24] MEDS: TEMAZEPAM 15 MG CAPSULE PO PRN (22:35)
[2017-04-25] MEDS: oxyCODONE/APAP (5/325 MG) 1 UDTAB TABLET PO PRN ×2 (03:57→10:07)
--- NOTE | 2017-04-25 06:54 | NUR ---
RN NOTES PATIENT IN BED, EASILY AROUSEABLE, RESTING COMFORTABLY, BREATHING IS EVEN AND UNLABORED, PROVIDED PAIN MEDICATION DURING SHIFT, WITH EPISODES OF WHINING LOUD, COMPLIANT WITH MEDICATIONS, ALL DUE MEDICATIONS GIVEN, CALL LIGHT WITHIN REACH.
[2017-04-25 07:08] LABS: BILIRUBIN,TOTAL 0.5 mg/dL (0.2-1.0); CALCIUM, SERUM 7.9 mg/dL (8.5-10.1); CREATININE 0.6 mg/dL (0.6-1.3); MAGNESIUM 1.5 mg/dL (1.8-2.4); PHOSPHORUS 2.2 mg/dL (2.5-4.9); TOTAL PROTEIN, SERUM 4.9 g/dL (6.4-8.2)
--- NOTE | 2017-04-25 07:15 | NUR ---
RN NOTES PT IS LAYING DOWN IN BED, MOANING. PT ON RA, RESPIRATIONS ARE EVEN AND UNLABORED. IV ON LAC INTACT AND RUNNING D5 1/2 NS @ 75ML/HR. SAFETY MEASURES ARE IN PLACE, CALL LIGHT IS IN REACH. WILL CONTINUE TO MONITOR.
[2017-04-25 07:20] LABS: INR 1.05 (0.87-1.13); PROTHROMBIN TIME 10.9 SECS (9.5-12.7)
[2017-04-25 07:28] LABS: THYROID STIMULATING HORMONE 2.52 uIU/mL (0.358-3.74)
[2017-04-25 07:37] LABS: POTASSIUM 2.6 mmol/L (3.5-5.1)
[2017-04-25] MEDS: PANTOPRAZOLE 40 MG TABLET.DR PO SCH (07:40)
[2017-04-25] MEDS: HYDROCODONE/APAP 5/325MG 1 EACH TABLET PO PRN (07:40)
[2017-04-25 08:00] VITALS: BP 141/102
[2017-04-25] MEDS: CALCIUM CARBONATE 500 MG TAB.CHEW PO SCH (08:38)
[2017-04-25] MEDS: ESCITALOPRAM OXALATE (10 MG) 10 MG TABLET PO SCH (08:38)
[2017-04-25] MEDS: CHOLECALCIFEROL (VITAMIN D 3) 400 UNIT TABLET PO SCH (08:38)
[2017-04-25 09:11] LABS: APPEARANCE,URINE CLEAR (CLEAR); BILIRUBIN,URINE 2+ (NEGATIVE); BLOOD, URINE NEGATIVE Ery/uL (NEGATIVE); COLOR,URINE YELLOW (YELLOW); KETONES,URINE 2+ (NEGATIVE); LEUKOCYTE ESTERASE ,URINE NEGATIVE (NEGATIVE); NITRITE, URINE NEGATIVE (NEGATIVE); PROTEIN,URINE NEGATIVE (NEGATIVE); UGLUCOSE NEGATIVE (NEGATIVE); UROBILINOGEN,URINE 0.2 EU/dL (0.2)
[2017-04-25 09:11] LABS: BASOPHILS % (AUTO) 0.3 % (0.0-2.0); EOSINOPHILS % (AUTO) 0.1 % (0.0-6.0); HEMATOCRIT 36 % (33-45); HEMOGLOBIN 11.9 g/dL (11.5-14.8); LYMPHOCYTES # (AUTO) 1.4 /CMM (0.8-4.8); LYMPHOCYTES % (AUTO) 13.7 % (20.0-44.0); MEAN CORPUSCULAR HEMOGLOBIN 33 PG (26.0-33.0); MEAN CORPUSCULAR HGB CONC 33 g/dl (31.0-36.0); MEAN CORPUSCULAR VOLUME 99 fL (82-100); MONOCYTES # (AUTO) 0.8 /CMM (0.1-1.30); NEUTROPHILS # (AUTO) 8.2 /CMM (1.8-8.9); NEUTROPHILS % (AUTO) 77.9 % (43.0-81.0); PLATELET COUNT (AUTO) 225 /CMM (150-450); RDW COEFFICIENT OF VARIATION 16.6 (11.5-15.0); RED BLOOD CELL COUNT(AUTO) 3.63 MIL/uL (4.0-5.2); WHITE BLOOD COUNT (AUTO) 10.5 K/uL (4.3-11.0)
[2017-04-25 09:23] LABS: WBC,URINE 0-2 /HPF (0-3)
[2017-04-25 09:24] LABS: BACTERIA,URINE Few /HPF (None Seen); SQUAMOUS EPITHELIAL CELL,UR Few /HPF (None Seen); URIC ACID CRYSTALS,URINE Few /HPF (None Seen)
[2017-04-25] MEDS: IV D5/0.45 NACL 1,000 ML IV PRN (10:34)
[2017-04-25] MEDS: Magnesium 1GM/D5W 100ML PREMIX 100 ML IV SCH ×2 (11:08→12:26)
[2017-04-25] MEDS: oxyCODONE IR immediate release 5 MG CAPSULE PO PRN ×2 (12:46→17:35)
[2017-04-25] MEDS ORDERED: POTASSIUM CHLORIDE 20 MEQ TAB.PRT.SR PO ONE (13:00)
[2017-04-25] MEDS ORDERED: K PHOS NEUTRAL 250 MG TABLET PO ONE (13:30)
[2017-04-25] MEDS ORDERED: FENTANYL PF 100MCG/2ML AMPUL IV ONE (14:00)
[2017-04-25 16:00] VITALS: BP 164/99
[2017-04-25] MEDS: oxyCODONE HCL SR 10MG TAB.SR.12H PO SCH (16:16)
[2017-04-25] MEDS: KETOROLAC TROMETHAMINE INJ 30 MG/ML VIAL IV SCH ×2 (16:16→21:52)
[2017-04-25] MEDS: GABAPENTIN 300 MG CAPSULE PO SCH (16:16)
[2017-04-25] MEDS: ACETAMINOPHEN 325 MG TABLET PO SCH ×2 (16:16→17:34)
--- NOTE | 2017-04-25 18:54 | NUR ---
RN NOTES PT IS SLEEPING IN BED, RESTING COMFORTABLY. PT ON 2L O2, RESPIRATIONS ARE EVEN AND UNLABORED. IV ON LAC INTACT AND RUNNING D5 1/2 NS @ 75ML/HR. ALL MEDS WERE GIVEN ORDERED, PT NEEDS MET. SAFETY MEASURES ARE IN PLACE, CALL LIGHT IS IN REACH. WILL ENDORSE TO BEREAVEMENT COUNSELOR RN FOR CONTINUITY OF CARE.
[2017-04-25 20:00] VITALS: BP 154/93
--- NOTE | 2017-04-25 20:00 | NUR ---
RN NOTES PATIENT IN BED, ALERT AND AWAKE, NO RESPIRATORY DISTRESS, TOLERATING ROOM AIR, SPO2 95%, WITH PRN O2 VIA NC. NOT IN APPARENT PAIN, QUIET AND NO WHINING AT THIS TIME. KEPT SAFE AND COMFORTABLE, CALL LIGHT WITHIN REACH.
--- NOTE | 2017-04-25 23:01 | NUR ---
RN NOTES NOTED SWOLLEN LEFT AC PERIPHERAL LINE, IV FLUID INFUSION STOPPED. UNABLE TO INSERT IV LINE DUE TO VEINS ARE FINE AND NOT VISIBLE. NOTIFIED CHARLI BROTHERS, NEW ORDER OF MIDLINE INSERTION IN AM. RN BIG 6 DEALER ALSO NOTIFIED
[2017-04-26] MEDS: ACETAMINOPHEN 325 MG TABLET PO SCH ×5 (00:33→23:38)
[2017-04-26] MEDS: TEMAZEPAM 15 MG CAPSULE PO PRN ×2 (00:37→23:38)
[2017-04-26] MEDS: KETOROLAC TROMETHAMINE INJ 30 MG/ML VIAL IV SCH (04:00)
--- NOTE | 2017-04-26 04:01 | NUR ---
RN NOTES TORADOL HELD, NO IV ACCESS. PATIENT IS ASLEEP, NOT IN APPARENT PAIN.
[2017-04-26] MEDS: oxyCODONE IR immediate release 5 MG CAPSULE PO PRN ×2 (05:51→20:44)
--- NOTE | 2017-04-26 06:30 | NUR ---
RN NOTES PATIENT IN BED, RESTING COMFORTABLY, BREATHING IS EVEN AND UNLABORED, COMPLAINING CHRONIC BACK PAIN, PROVIDED PAIN MEDICATION NEEDED AND ROUTINE PAIN MEDICATION. PROVIDED GOOD PERINEAL CARE, TURNED AND REPOSITIONED. KEPT SAFE AND COMFORTABLE, CALL LIGHT WITHIN REACH.
[2017-04-26 07:07] LABS: CALCIUM, SERUM 7.9 mg/dL (8.5-10.1); CREATININE 0.4 mg/dL (0.6-1.3); POTASSIUM 3.3 mmol/L (3.5-5.1)
[2017-04-26 08:00] VITALS: BP 167/90
--- NOTE | 2017-04-26 08:08 | NUR ---
MS RN: INITIAL NOTE RECEIVED PT A/OX2. INCONTINENT. USES DIAPER. BED REST. ON REGULAR DIET. AWAITING IV MIDLINE INSERTION. NO IV FLUID RUNNING. NO DISTRESS NOTED. NO SOB NOTED. NO PAIN NOTED. SATING AT 98% ON 2 L NC. RESTING COMFORTABLY IN BED, CALL LIGHT WITHIN REACH.
[2017-04-26] MEDS: ESCITALOPRAM OXALATE (10 MG) 10 MG TABLET PO SCH (08:52)
[2017-04-26] MEDS: CALCIUM CARBONATE 500 MG TAB.CHEW PO SCH (08:52)
[2017-04-26] MEDS: CHOLECALCIFEROL (VITAMIN D 3) 400 UNIT TABLET PO SCH (08:52)
[2017-04-26] MEDS: PANTOPRAZOLE 40 MG TABLET.DR PO SCH (08:52)
[2017-04-26] MEDS: GABAPENTIN 300 MG CAPSULE PO SCH (08:52)
[2017-04-26] MEDS: oxyCODONE HCL SR 10MG TAB.SR.12H PO SCH ×2 (08:53→21:07)
[2017-04-26] MEDS: DICLOFENAC SODIUM 25 MG TABLET.DR PO SCH ×2 (10:56→16:50)
[2017-04-26] MEDS ORDERED: POTASSIUM CHLORIDE 20 MEQ TAB.PRT.SR PO SCH (12:00)
[2017-04-26] MEDS ORDERED: K PHOS NEUTRAL 250 MG TABLET PO ONE (14:00)
[2017-04-26 16:00] VITALS: BP 147/97
--- NOTE | 2017-04-26 18:45 | NUR ---
MS RN: CLOSING NOTE PT A/OX2-3. TOOK ALL MEDICATIONS ON TIME. NO ADVERSE REACTIONS NOTED. NO SOB NOTED. ON 2L NC SATING AT 98%. PAIN CONTROLLED WITH PAIN MEDICATIONS. MIDLINE INSERTION ON MAYANK #18. SITE CLEAR AND PATENT. NO REDNESS NOTED. NO BLEEDING NOTED. DRESSING INTACT. ON REGULAR DIET. INCONTINENT AND USES DIAPER. MD CALLE IS NOW GENERAL MD AT [facility]. ALSO PRIMARY PHYSICIAN OUT OF HOSPITAL. SAW PT TODAY. INFORM FOR ANY NEW ORDERS OR ELLIS. RESTING COMFORTABLY IN BED. CALL LIGHT WITHIN REACH.
[2017-04-26] MEDS: ONDANSETRON HCL/PF 4 MG/2 ML VIAL IVP PRN (19:33)
[2017-04-26 20:00] VITALS: BP 155/93
[2017-04-27] MEDS: IV D5/0.45 NACL 1,000 ML IV PRN ×2 (00:36→12:01)
[2017-04-27] MEDS: ACETAMINOPHEN 325 MG TABLET PO SCH ×3 (06:15→17:25)
--- NOTE | 2017-04-27 06:18 | NUR ---
MS RN NOTES BP 176/104. CALLED DR CALLE. MADE AWARE RE PT'S CONDITION. WITH NEW ORDERS MADE. ORDERS NOTED AND CARRIED OUT. WILL CONTINUE TO MONITOR.
[2017-04-27] MEDS ORDERED: CLONIDINE HCL 0.1 MG TABLET ONE (06:19)
[2017-04-27] MEDS: CLONIDINE HCL 0.1 MG TABLET PO PRN ×2 (06:20→20:08)
--- NOTE | 2017-04-27 06:50 | NUR ---
MS RN NOTES AWAKE & RESPONSIVE. NOT IN ANY DISTRESS. NO SOB NOTED. DENIES ANY PAIN OR DISCOMFORT AT THIS TIME. WITH IVF INFUSING WELL. MONITORED ACCORDINGLY. CALL LIGHT WITHIN REACH. BED IN LOWEST POSITION. SR UP X 3 WITH BED ALARM ON FOR SAFETY. WILL ENDORSE TO NEXT SHIFT.
[2017-04-27] MEDS: PANTOPRAZOLE 40 MG TABLET.DR PO SCH (07:30)
[2017-04-27 08:00] VITALS: BP 156/90
[2017-04-27] MEDS: ESCITALOPRAM OXALATE (10 MG) 10 MG TABLET PO SCH (08:44)
[2017-04-27] MEDS: GABAPENTIN 300 MG CAPSULE PO SCH ×2 (08:44→16:37)
[2017-04-27] MEDS: CHOLECALCIFEROL (VITAMIN D 3) 400 UNIT TABLET PO SCH (08:44)
[2017-04-27] MEDS: DICLOFENAC SODIUM 25 MG TABLET.DR PO SCH ×2 (08:44→16:37)
[2017-04-27] MEDS: CALCIUM CARBONATE 500 MG TAB.CHEW PO SCH (08:44)
[2017-04-27] MEDS: oxyCODONE HCL SR 10MG TAB.SR.12H PO SCH ×2 (08:45→21:03)
--- NOTE | 2017-04-27 09:18 | NUR ---
MS/RN Patient received Patient received from wire mesh knitter. Sleeping at this time, appears comfortable, in no distress. Bed in low setting, brakes locked, side rails X3 in upright position. Call light within reach, will continue to monitor and ensure safety. Addendum: 04/27/17 at 1335 by SANDRA MUNIZ Time entered should of read [id number]
--- NOTE | 2017-04-27 09:18 | NUR ---
MS/RN Medications Morning medications administered as ordered, no problems swallowing.
--- NOTE | 2017-04-27 10:00 | NUR ---
MS/RN Potassium Received call from lab, K+ 2.8, will inform .
[2017-04-27 10:24] LABS: CALCIUM, SERUM 7.6 mg/dL (8.5-10.1); CREATININE 0.5 mg/dL (0.6-1.3)
[2017-04-27 10:28] LABS: POTASSIUM 2.8 mmol/L (3.5-5.1)
[2017-04-27] MEDS: oxyCODONE IR immediate release 5 MG CAPSULE PO PRN ×2 (11:12→17:25)
--- NOTE | 2017-04-27 13:35 | NUR ---
MS/RN Rounds Patient sleeping at this time, refused lunch.
[2017-04-27] MEDS: POTASSIUM CHLORIDE 20 MEQ TAB.PRT.SR PO SCH ×3 (15:17→23:18)
[2017-04-27] MEDS: LISINOPRIL (10MG) 10 MG TABLET PO SCH (15:17)
[2017-04-27 16:00] VITALS: BP 165/99
--- NOTE | 2017-04-27 16:18 | NUR ---
MS/RN S/B Dr Gutierrez Seen by Dr Gutierrez - potassium replaced, additional blood pressure medication ordered along with labs for tomorrow. Awaiting SNF placement to [facility].
--- NOTE | 2017-04-27 17:00 | NUR ---
MS/business support manager Per case management, waiting for [facility] bed.
--- NOTE | 2017-04-27 18:30 | NUR ---
MS/RN End note No changes in plan of care, all needs attended. Second dose of potassium administered, last dose scheduled for 11p. Call light within reach, bed in low setting, side rails X3 in upright position. Will endorse to auto body repair technician.
[2017-04-27 20:00] VITALS: BP 159/88
[2017-04-27] MEDS: ONDANSETRON HCL/PF 4 MG/2 ML VIAL IVP PRN (20:06)
[2017-04-27] MEDS: TEMAZEPAM 15 MG CAPSULE PO PRN (21:27)
[2017-04-28] MEDS: oxyCODONE IR immediate release 5 MG CAPSULE PO PRN ×4 (04:55→18:06)
[2017-04-28 06:00] VITALS: BP 142/88
[2017-04-28] MEDS: ACETAMINOPHEN 325 MG TABLET PO SCH ×5 (06:00→16:45)
--- NOTE | 2017-04-28 06:23 | NUR ---
MS RN NOTES AWAKE & RESPONSIVE. NOT IN ANY DISTRESS. NO SOB NOTED. DENIES ANY PAIN OR DISCOMFORT AT THIS TIME. WITH MIDLINE PATENT & INTACT. MONITORED ACCORDINGLY. CALL LIGHT WITHIN REACH. BED IN LOWEST POSITION. SR UP X 3 WITH BED ALARM ON FOR SAFETY. WILL ENDORSE TO NEXT SHIFT.
[2017-04-28 08:00] VITALS: BP 130/85
--- NOTE | 2017-04-28 08:00 | NUR ---
MS RN NOTES PATIENT IN BED RESTING O SOB OR ACUTE DISTRESS NOTED. BED IN LOW LOCKED POSITION CALL LIGHT WITHIN REACH WILL CONTINUE TO MONITOR.
[2017-04-28 08:10] LABS: CALCIUM, SERUM 7.6 mg/dL (8.5-10.1); CREATININE 0.4 mg/dL (0.6-1.3); POTASSIUM 4.4 mmol/L (3.5-5.1)
[2017-04-28] MEDS: oxyCODONE HCL SR 10MG TAB.SR.12H PO SCH (08:11)
[2017-04-28] MEDS: DICLOFENAC SODIUM 25 MG TABLET.DR PO SCH ×2 (08:11→16:45)
[2017-04-28] MEDS: ESCITALOPRAM OXALATE (10 MG) 10 MG TABLET PO SCH (08:12)
[2017-04-28] MEDS: PANTOPRAZOLE 40 MG TABLET.DR PO SCH (08:12)
[2017-04-28] MEDS: GABAPENTIN 300 MG CAPSULE PO SCH ×3 (08:12→16:45)
[2017-04-28] MEDS: CALCIUM CARBONATE 500 MG TAB.CHEW PO SCH (08:12)
[2017-04-28] MEDS: CHOLECALCIFEROL (VITAMIN D 3) 400 UNIT TABLET PO SCH (08:13)
[2017-04-28] MEDS: LISINOPRIL (10MG) 10 MG TABLET PO SCH (08:15)
--- NOTE | 2017-04-28 15:00 | NUR ---
MS RN NOTES SPOKE TO DR. CALLE ORDERS OBTAINED FOR DISCHARGE AND CONTINUE ALL MEDICATIONS, NOTED AND CARRIED OUT.
[2017-04-28 16:23] VITALS: BP 156/94
[2017-04-28] MEDS ORDERED: ACETAMINOPHEN ES 500 MG TABLET PO PRN (18:30)
--- NOTE | 2017-04-28 19:30 | NUR ---
MS RN NOTES PATIENT DISCHARGED TO [facility]. REPORT GIVEN TO TERRY TONEY SUP. AT [facility]. PATIENT IN STABLE CONDITION. NO SOB OR ACUTE DISTRESS NOTED. ALL DUE MEDICATIONS ADMINISTERED. ALL NEEDS MET. MD AWARE OF ALL ABNORMAL LABS. BELONGINGS ACCOUNTED FOR, BELONGING LIST SIGNED. TRANSFERRED TO SNF VIA EMT.
== END 2017-04-28 18:38 | DRG 551 ==
LOC: ER 08:05 → MEDSG2 10:46
PROVIDERS: ADMIT Internal Medicine; ATTEND Internal Medicine
PROC: 02HV33Z Insertion of Infusion Device into Superior Vena Cava, Percutaneous Approach (ICD-10-PCS; principal; 2017-04-24)
DX: M51.06 Intervertebral disc disorders with myelopathy, lumbar region (principal); G93.41 Metabolic encephalopathy; M41.9 Scoliosis, unspecified; E83.42 Hypomagnesemia; N39.0 Urinary tract infection, site not specified; M51.26 Other intervertebral disc displacement, lumbar region; J44.9 Chronic obstructive pulmonary disease, unspecified; E87.6 Hypokalemia; G89.4 Chronic pain syndrome; I10 Essential (primary) hypertension; Z88.3 Allergy status to other anti-infective agents; Z88.0 Allergy status to penicillin; Z88.2 Allergy status to sulfonamides; Z88.7 Allergy status to serum and vaccine; Z96.641 Presence of right artificial hip joint; Z82.49 Family history of ischemic heart disease and other diseases of the circulatory system; Z79.899 Other long term (current) drug therapy; Z98.890 Other specified postprocedural states; F12.90 Cannabis use, unspecified, uncomplicated; Z79.891 Long term (current) use of opiate analgesic; F17.200 Nicotine dependence, unspecified, uncomplicated; M71.20 Synovial cyst of popliteal space [Baker], unspecified knee; M79.7 Fibromyalgia; M81.0 Age-related osteoporosis without current pathological fracture; Z87.81 Personal history of (healed) traumatic fracture
CPT/HCPCS: 36415; 36569; 70450-TC; 71010-TC; 80048-TC; 80053-TC; 80061-TC; 80076-TC; 81000-TC; 82746; 83540-TC; 83605-TC; 83690-TC; 83735-TC; 84100-TC; 84443-TC; 84484-TC; 85025-TC; 85730-TC; 87040-TC; 87081-TC; 93970-TC; 97116-TC; 97530-TC; A4216; A4606; J1885; J1956; J2405; J3010; J3475; J3490; J7040; Z7610

== ENCOUNTER 2017-08-04 20:49 | Inpatient (IN) | payer MEDICARE, MEDICAID ==
[~2017-08-04] VITALS: Ht 152.4 cm; Wt 44.9 kg
[~2017-08-04 20:49] MED LIST changes: -ALBU2.5V13 NEB; +CALC600T12 PO; +CHOL400T28 PO; -CLON1PAT2 TD; -ENOX40DI SQ; +ESCI20TA PO; -Ergocalciferol (Vitamin D 2) PO; -HYDR2DIS IV; -IPRA0.2S9 NEB; -NICO1PAT28 TD; +OXYC-128 PO; -OXYC5CAP3 PO; -PREG100C PO; -QUET100T PO; -QUET25TA PO; -SIMV10TA6 PO; -TEMA15CA5 PO; +TEMA30CA PO; -TIZA4TAB4 PO; -TRAZ-144 PO
--- NOTE | 2017-08-04 21:00 | NUR ---
KWASI FROM HOME C/O ALDA LEG NUMBNESS/ TINGLING X 4 MONTHS. NAD NOTED, VSS, RESP EVEN AND UNLABORED, PT PUT ON MONITOR, WAITING FOR MD VALLADARES.
[2017-08-04] MEDS ORDERED: HYDROMORPHONE INJ 2 MG/ML DISP.SYRIN ONE (22:20)
[2017-08-04] MEDS ORDERED: HYDROMORPHONE 1 MG/1 ML DISP.SYRIN IM ONE (22:30)
[2017-08-04] MEDS ORDERED: oxyCODONE/APAP (5/325 MG) 1 UDTAB TABLET PO ONE (22:30)
--- NOTE | 2017-08-04 23:45 | NUR ---
REPORT GIVEN TO
--- NOTE | 2017-08-04 23:46 | NUR ---
IV INSERTED IN RAC 20G, BLOOD SAMPLE SENT TO LAB.
--- NOTE | 2017-08-04 23:48 | NUR ---
RECEIVED REPORT FROM FENG ESTEBAN
[2017-08-05 00:05] LABS: BASOPHILS % (AUTO) 0.4 % (0.0-2.0); EOSINOPHILS # (AUTO) 0.6 /CMM (0.0-0.7); EOSINOPHILS % (AUTO) 4.6 % (0.0-6.0); HEMATOCRIT 35 % (33-45); HEMOGLOBIN 11.6 g/dL (11.5-14.8); LYMPHOCYTES # (AUTO) 3.9 /CMM (0.8-4.8); LYMPHOCYTES % (AUTO) 31.8 % (20.0-44.0); MEAN CORPUSCULAR HEMOGLOBIN 31 PG (26.0-33.0); MEAN CORPUSCULAR HGB CONC 33 g/dl (31.0-36.0); MEAN CORPUSCULAR VOLUME 92 fL (82-100); MONOCYTES % (AUTO) 7.8 % (2.0-12.0); NEUTROPHILS # (AUTO) 6.8 /CMM (1.8-8.9); NEUTROPHILS % (AUTO) 55.4 % (43.0-81.0); PLATELET COUNT (AUTO) 352 /CMM (150-450); RDW COEFFICIENT OF VARIATION 15.7 (11.5-15.0); RED BLOOD CELL COUNT(AUTO) 3.79 MIL/uL (4.0-5.2); WHITE BLOOD COUNT (AUTO) 12.3 K/uL (4.3-11.0)
[2017-08-05 00:19] LABS: CALCIUM, SERUM 8.5 mg/dL (8.5-10.1); CREATININE 0.6 mg/dL (0.6-1.3)
[2017-08-05] MEDS ORDERED: POTASSIUM CHLORIDE 20 MEQ TAB.PRT.SR PO ONE ×3 (00:25→00:30)
[2017-08-05 00:29] LABS: BILIRUBIN,DIRECT 0.1 mg/dL (0.0-0.2); BILIRUBIN,TOTAL 0.2 mg/dL (0.2-1.0); TOTAL PROTEIN, SERUM 5.9 g/dL (6.4-8.2)
--- NOTE | 2017-08-05 00:40 | NUR ---
DR. ANDRES AT BEDSIDE FOR EVAL.
--- NOTE | 2017-08-05 00:43 | NUR ---
PT TRANSFERRED VIA GURNEY TO MS
[2017-08-05 00:46] VITALS: BP 130/70
--- NOTE | 2017-08-05 00:46 | NUR ---
MS RN ADMITTING NOTES: ADMITTED A 71 YO FEMALE PATIENT WHO WAS BROUGHT TO ER DUE TO INTRACTABLE BACK PAIN. PATIENT WAS BROUGHT TO MS FLOOR 2 VIA BIMALRHUEY, AOX4, ON ROOM AIR, BREATHING EVEN AND UNLABORED. APPEARS CALM AND IN NO DISTRESS, STATES THAT LOW BACK PAIN HAS NOW DECREASED AND IS SCALED AT 6/10. PIV OVER R WRIST G 20 INTACT AND PATENT TO FLUSH. ADMITTING CARE DONE. PROVIDED FOR COMFORT AND SAFETY. BED IN LOWEST AND LOCKED POSITION, SIDERAILS UP X 3, CALL LIGHT WITHIN REACH, WILL CONT TO MONITOR.
[2017-08-05] MEDS ORDERED: TEMAZEPAM 15 MG CAPSULE PO PRN (02:00)
[2017-08-05] MEDS ORDERED: ACETAMINOPHEN 325 MG TABLET PO PRN (02:00)
[2017-08-05] MEDS ORDERED: MAGNESIUM HYDROXIDE 30 ML UDC PO PRN (02:00)
[2017-08-05] MEDS ORDERED: MAG HYDROX/AL HYDROX/SIMETH 30 ML UDC PO PRN (02:00)
[2017-08-05] MEDS ORDERED: ZOLPIDEM TARTRATE 5 MG TABLET PO PRN (02:00)
[2017-08-05] MEDS ORDERED: ONDANSETRON HCL/PF 4 MG/2 ML VIAL IVP PRN (02:00)
[2017-08-05] MEDS: HYDROCODONE/APAP 5/325MG 1 EACH TABLET PO PRN ×2 (05:46→17:25)
--- NOTE | 2017-08-05 05:48 | NUR ---
RN NOTES: PATIENT COMPLAINED OF 7/10 PAIN OVER LOWER BACK. ADMINISTERED NORCO 5-325 MG PO. POSITIONED FOR COMFORT. WILL CONT TO MONITOR.
--- NOTE | 2017-08-05 07:10 | NUR ---
MS RN OPENING NOTES RECEIVED PT FROM NIGHTSHIFT NURSE IN STABLE CONDITION. PT IS A/O X3. NO SOB NOTED. BREATHING IS EVEN AND UNLABORED. PT IS ON 2L VIA NC AND SATING WELL. SHE COMPLAINS OF LOWER BACK PAIN RATED 10/10. WILL ADMINISTER PRN PAIN MEDICATION WHEN DUE. IV TO RIGHT WRIST NOTED TO BE PATENT AND INTACT. NO REDNESS OR SIGNS OF INFILTRATION NOTED. BED IN LOW LOCKED POSITION, SIDE RAILS UP X2, CALL LIGHT WITHIN REACH. WILL CONTINUE TO MONITOR
--- NOTE | 2017-08-05 07:44 | NUR ---
MS RN CLOSING NOTES: PATIENT IN BED, AOX4, ON ROOM AIR, BREATHING EVEN AND UNLABORED. APPEARS CALM AND IN NO DISTRESS. STILL COMPLAINING OF MILD, LOW BACK PAIN SCALED AT 4/10. PIV OVER R WRIST G 20 PATENT TO FLUSH. PROVIDED FOR COMFORT AND SAFETY. BED IN LOWEST AND LOCKED POSITION, SIDERAILS UP X 3, CALL LIGHT WITHIN REACH. WILL ENDORSE TO AM RN FOR ELLIS.
[2017-08-05 08:00] VITALS: BP 151/85
[2017-08-05] MEDS: ESCITALOPRAM OXALATE (10 MG) 10 MG TABLET PO SCH (08:56)
[2017-08-05] MEDS: PANTOPRAZOLE 40 MG TABLET.DR PO SCH (08:56)
[2017-08-05] MEDS: CHOLECALCIFEROL (VITAMIN D 3) 400 UNIT TABLET PO SCH (08:56)
[2017-08-05] MEDS: CALCIUM CARB 600MG /VIT D 1 EACH TABLET PO SCH (08:56)
[2017-08-05] MEDS: HYDROCODONE/APAP 10/325MG 1 EA TABLET PO PRN ×2 (09:33→14:06)
[2017-08-05 13:56] LABS: CALCIUM, SERUM 8.6 mg/dL (8.5-10.1); CREATININE 0.5 mg/dL (0.6-1.3); POTASSIUM 4.1 mmol/L (3.5-5.1)
[2017-08-05 14:00] VITALS: BP 157/89
[2017-08-05 14:50] LABS: BASOPHILS # (AUTO) 0.1 /CMM (0.0-0.2); EOSINOPHILS # (AUTO) 0.5 /CMM (0.0-0.7); EOSINOPHILS % (AUTO) 5.1 % (0.0-6.0); HEMATOCRIT 34 % (33-45); HEMOGLOBIN 11.1 g/dL (11.5-14.8); LYMPHOCYTES % (AUTO) 43.5 % (20.0-44.0); MEAN CORPUSCULAR HEMOGLOBIN 30 PG (26.0-33.0); MEAN CORPUSCULAR HGB CONC 33 g/dl (31.0-36.0); MEAN CORPUSCULAR VOLUME 91 fL (82-100); MONOCYTES # (AUTO) 0.6 /CMM (0.1-1.30); MONOCYTES % (AUTO) 6.4 % (2.0-12.0); NEUTROPHILS # (AUTO) 4.1 /CMM (1.8-8.9); PLATELET COUNT (AUTO) 323 /CMM (150-450); RED BLOOD CELL COUNT(AUTO) 3.72 MIL/uL (4.0-5.2); WHITE BLOOD COUNT (AUTO) 9.3 K/uL (4.3-11.0)
[2017-08-05 15:31] LABS: APPEARANCE,URINE CLEAR (CLEAR); BILIRUBIN,URINE NEGATIVE (NEGATIVE); BLOOD, URINE NEGATIVE Ery/uL (NEGATIVE); COLOR,URINE YELLOW (YELLOW); KETONES,URINE NEGATIVE (NEGATIVE); LEUKOCYTE ESTERASE ,URINE NEGATIVE (NEGATIVE); NITRITE, URINE NEGATIVE (NEGATIVE); PH,URINE 5.5 (5.0-8.0); PROTEIN,URINE TRACE mg/dl (NEGATIVE); UGLUCOSE NEGATIVE (NEGATIVE); UROBILINOGEN,URINE 0.2 EU/dL (0.2)
[2017-08-05 16:33] LABS: BACTERIA,URINE None seen /HPF (None Seen); WBC,URINE 0-2 /HPF (0-3)
[2017-08-05 16:34] LABS: CALCIUM OXALATE CRYSTALS,UR Rare /HPF (None Seen); HYALINE CASTS, URINE Few /LPF (None Seen); MUCUS,URINE Few /LPF (None Seen); SQUAMOUS EPITHELIAL CELL,UR 0-2 /HPF (None Seen); YEAST,URINE Few /HPF (None Seen)
--- NOTE | 2017-08-05 18:11 | NUR ---
MS RN NOTES CHARLI THE SOLAR SALES ESTIMATOR CONTACTED PT'S PAIN IS UNRELIEVED WITH NORCO. PER CHARLI "ORDER MORPHINE 2MG IV Q4HR PRN". WILL CARRY OUT ORDER.
[2017-08-05] MEDS: MORPHINE SULFATE INJ 4 MG/ML DISP.SYRIN IV PRN (18:17)
--- NOTE | 2017-08-05 19:00 | NUR ---
MS RN CLOSING NOTES PT REMAINS STABLE. ALL NEEDS MET DURING SHIFT AND ORDERS CARRIED OUT ACCORDINGLY. ALL DUE MEDS GIVEN. PT REPOSITIONED AND TURNED PER HOSPITAL PROTOCOL. PAIN NOW BETTER MANAGED WITH MORPHINE ADMINISTRATION. IV REMAINS PATENT AND INTACT. SAFETY MEASURES REMAIN IN PLACE. WILL ENDORSE TO NIGHTSHIFT NURSE FOR ELLIS
[2017-08-05] MEDS: LIDOCAINE 5% (PATCH) 1 EA PATCH TP SCH (19:25)
--- NOTE | 2017-08-05 19:50 | NUR ---
MS RN NOTES RECEIVED ON BED SLEEPING,AROUSABLE TO VERBAL STIMULI,SALINE LOCK RIGHT WRIST INTACT AND PATENT.O2 IN USED AT 2L/NC TO KEEP O2 SAT ABOVE 90%.INCONTINENT OF URINE,KEPT CLEAN AND DRY.FALL PRECAUTION OBSERVED,BED ON LOWEST POSITION AND LOCK.CALL LIGHT IN REACH,NEEDS ANTICIPATED.
[2017-08-05 20:00] VITALS: BP 145/77
[2017-08-05] MEDS: oxyCODONE HCL SR 10MG TAB.SR.12H PO SCH (21:13)
[2017-08-06] MEDS: MORPHINE SULFATE INJ 4 MG/ML DISP.SYRIN IV PRN ×5 (00:59→21:43)
--- NOTE | 2017-08-06 00:59 | NUR ---
MS RN NOTES PAIN MANAGEMENT AWAKE,C/O BACK PAIN 8/10 ON PAIN SCALE,MORPHINE 2MG IV GIVEN ORDERED FOR SEVERE PAIN
--- NOTE | 2017-08-06 04:30 | NUR ---
MS RN NOTES MORNING CARE RENDERED BY ANGIE FORTUNE.
--- NOTE | 2017-08-06 04:57 | NUR ---
MS RN NOTES PAIN MANAGEMENT C/O LOWER BACK PAIN 8/10 ON PAIN SCALE,MORPHINE 2MG IV GIVEN
--- NOTE | 2017-08-06 06:20 | NUR ---
MS RN NOTES NO SIGNIFICANT CHANGE IN STATUS.MEDICATED X2 WITH MORPHINE 2MG IV FOR PAIN MANAGEMENT.FOR MRI LSPINE WITHOUT CONTRASTPER NEURO RECOMMENDATION.WILL ENDORSE TO DAY NURSE FOR ELLIS.
--- NOTE | 2017-08-06 07:49 | NUR ---
MS RN OPENING NOTES RECEIVED PT FROM NIGHTSHIFT NURSE IN STABLE CONDITION. PT IS A/O X3. NO SOB NOTED. BREATHING IS EVEN AND UNLABORED. PT IS ON 2L VIA NC AND SATING WELL. SHE COMPLAINS OF LOWER BACK PAIN RATED 6/10. WILL ADMINISTER PRN PAIN MEDICATION WHEN DUE. IV TO RIGHT WRIST NOTED TO BE PATENT AND INTACT. NO REDNESS OR SIGNS OF INFILTRATION NOTED. PT SCHEDULED FOR MRI OF THE LUMBER SPINE. EXCELSIOR PICKER CALLED FOR FOLLOW UP BUT NO RESPONSE. VOICEMAIL WAS LEFT. BED IN LOW LOCKED POSITION, SIDE RAILS UP X2, CALL LIGHT WITHIN REACH. WILL CONTINUE TO MONITOR
[2017-08-06 08:00] VITALS: BP 159/97
[2017-08-06] MEDS: DOCUSATE SODIUM 100 MG CAPSULE PO SCH ×2 (08:06→17:33)
[2017-08-06] MEDS: oxyCODONE HCL SR 10MG TAB.SR.12H PO SCH ×2 (08:07→20:18)
[2017-08-06] MEDS: PANTOPRAZOLE 40 MG TABLET.DR PO SCH (08:07)
[2017-08-06] MEDS: ESCITALOPRAM OXALATE (10 MG) 10 MG TABLET PO SCH (08:07)
[2017-08-06] MEDS: GABAPENTIN 300 MG CAPSULE PO SCH (08:07)
[2017-08-06] MEDS: CHOLECALCIFEROL (VITAMIN D 3) 400 UNIT TABLET PO SCH (08:07)
[2017-08-06] MEDS: CALCIUM CARB 600MG /VIT D 1 EACH TABLET PO SCH (08:07)
--- NOTE | 2017-08-06 10:59 | NUR ---
MS RN NOTES MELI THE NURSING SHEETROCK APPLICATOR CONTACTED IN REGARDS TO MRI I HAVE NOT RECEIVED A RESPONSE FROM THE TECH. PER MELI, "IF THE ORDER IS PLACED A STAT ORDER THEN IT MAY BE DONE TODAY, BUT IF NOT THEN IT WILL NEED TO BE APPROVED THEN DONE TOMORROW A ROUTINE ORDER". CHARLI THE PRODUCT DEVELOPMENT CHEMIST MADE AWARE AND STATED TO PUT IT A STS ORDER. WILL CARRY THIS ORDER OUT.
--- NOTE | 2017-08-06 11:12 | NUR ---
MS RN NOTES PT TAKEN DOWN FOR MRI IN STABLE CONDITION
--- NOTE | 2017-08-06 11:48 | NUR ---
MS RN NOTES PT BACK FROM MRI IN STABLE CONDITION. WILL AWAIT RESULTS
[2017-08-06 16:00] VITALS: BP 156/87
[2017-08-06] MEDS: LIDOCAINE 5% (PATCH) 1 EA PATCH TP SCH (17:33)
[2017-08-06] MEDS: BOOST PLUS FOOD-CHOCLATE 237 ML BOX PO SCH (18:13)
--- NOTE | 2017-08-06 18:55 | NUR ---
MS RN CLOSING NOTES PT REMAINS IN STABLE CONDITION. PAIN PROPERLY MANAGED WITH MEDICATION ADMINISTRATION. ALL NEEDS WERE MET DURING SHIFT AND ORDERS CARRIED OUT ACCORDING. IV REMAINS PATENT AND INTACT. SAFTEY MEASURES REMAIN IN PLACE. WILL ENDORSE TO NIGHTSHIFT NURSE FOR ELLIS
--- NOTE | 2017-08-06 19:30 | NUR ---
MS RN OPENING NOTES: PATIENT IN BED, AOX3, ON O2 AT 2 LPM VIA NC, BREATHING EVEN AND UNLABORED. APPEARS CALM, IN NO APPARENT DISTRESS, EATING DINNER. HOWEVER, SHE STATES THAT SHE HAS DULL LOW BACK PAIN SCALED AT 7/10 AT THIS TIME. PIV OVER R WRIST G 20 INTACT AND PATENT TO FLUSH. PROVIDED FOR COMFORT AND SAFETY. BED IN LOWEST AND LOCKED POSITION, SIDERAILS UP X3, CALL LIGHT WITHIN REACH. WILL CONT TO MONITOR.
[2017-08-06 20:00] VITALS: BP 160/76
[2017-08-06 22:18] VITALS: BP 151/66
[2017-08-07] MEDS: MORPHINE SULFATE INJ 4 MG/ML DISP.SYRIN IV PRN ×5 (01:34→19:59)
--- NOTE | 2017-08-07 01:34 | NUR ---
RN NOTES: PATIETN COMPLAINED OF 9/10 PAIN OVER LOWER BACK, WAS NOTED TO BE CRYING. ADMINISTERED MORPHINE 2 MG IV. WILL CONT TO MONITOR.
[2017-08-07] MEDS ORDERED: HYDROMORPHONE 1 MG/1 ML DISP.SYRIN IV ONE (02:30)
[2017-08-07] MEDS ORDERED: HYDROMORPHONE INJ 2 MG/ML DISP.SYRIN ONE (02:35)
--- NOTE | 2017-08-07 02:49 | NUR ---
RN NOTES: PATIENT STILL CRYING, COMPLAINING OF LOWER BACK PAIN SCALED AT 10/10. CALLED DOMINIQUE ANDRES NP. ORDER GIVEN FOR DILAUDID 1 MG IV ONE TIME DOSE ONLY. ORDER CARRIED OUT, MEDICATION ADMINISTERED TO PATIENT. WILL CONT TO MONITOR.
[2017-08-07] MEDS ORDERED: HYDROMORPHONE INJ 2 MG/ML DISP.SYRIN IV ONE (03:00)
--- NOTE | 2017-08-07 07:30 | NUR ---
MS RN CLOSING NOTES: PATIENT IN BED, AOX3, ON O2 AT 2 LPM VIA NC, BREATHING EVEN AND UNLABORED. STILL COMPLAINS OF PAIN OVER HER LOWER BACK SCALED AT 9/10. PRN PAIN MEDS GIVEN. PROVIDED FOR COMFORT AND SAFETY. BED IN LOWEST AND LOCKED POSITION, SIDERAILS UP X 3, CALL LIGHT WITHIN REACH. WILL ENDORSE TO AM RN FOR ELLIS.
[2017-08-07] MEDS: PANTOPRAZOLE 40 MG TABLET.DR PO SCH (07:48)
[2017-08-07 08:00] VITALS: BP 151/81
--- NOTE | 2017-08-07 08:00 | NUR ---
MS/RN Patient received Patient received from night. A/O X3, vital signs within normal range, no fever. Continues to be in immense pain, stating that pain scale is 10/10. Morphine 2mg administered at 0750, will administer morning medications including oxycontin. Call light within reach, will continue to monitor and ensure safety.
[2017-08-07] MEDS: oxyCODONE HCL SR 10MG TAB.SR.12H PO SCH ×2 (08:32→20:35)
[2017-08-07] MEDS: CALCIUM CARB 600MG /VIT D 1 EACH TABLET PO SCH (08:32)
[2017-08-07] MEDS: DOCUSATE SODIUM 100 MG CAPSULE PO SCH ×2 (08:32→16:04)
[2017-08-07] MEDS: ESCITALOPRAM OXALATE (10 MG) 10 MG TABLET PO SCH (08:32)
[2017-08-07] MEDS: GABAPENTIN 300 MG CAPSULE PO SCH (08:32)
[2017-08-07] MEDS: CHOLECALCIFEROL (VITAMIN D 3) 400 UNIT TABLET PO SCH (08:32)
[2017-08-07] MEDS: BOOST PLUS FOOD-CHOCLATE 237 ML BOX PO SCH ×2 (08:36→17:00)
--- NOTE | 2017-08-07 10:52 | NUR ---
MS/RN Rounds Patient sleeping at this time.
--- NOTE | 2017-08-07 11:00 | NUR ---
MS/RN S/B Glenn Goodman Seen by Glenn Goodman - patient to be discharged this afternoon to SNF.
[2017-08-07] MEDS ORDERED: LIDO30AD10 TP (11:29)
[2017-08-07] MEDS ORDERED: GABA300C PO ×2 (11:29→12:37)
[2017-08-07] MEDS ORDERED: oxyCODONE HCL SR 10MG PO ×2 (11:29→12:37)
[2017-08-07] MEDS ORDERED: OXYC5CAP18 PO ×2 (11:29→11:43)
[2017-08-07] MEDS ORDERED: DOCU-141 PO (11:29)
[2017-08-07] MEDS ORDERED: OXYC10TA49 PO (12:37)
[2017-08-07] MEDS ORDERED: MAGN400O6 PO (12:38)
--- NOTE | 2017-08-07 14:25 | NUR ---
MS/RN New SNF Per case finishing machine adjuster, patient will now be going to [facility], waste picker at 4p.
[2017-08-07 16:00] VITALS: BP 160/84
[2017-08-07] MEDS ORDERED: GABAPENTIN 300 MG CAPSULE PO SCH (17:00)
[2017-08-07] MEDS ORDERED: hydrALAZINE HCL IV 20 MG VIAL IV ONE (17:30)
--- NOTE | 2017-08-07 19:30 | NUR ---
MS RN NOTE: PATIENT RESTING IN BED, NO ACUTE DISTRESS NOTED. BREATHING EVEN AND UNLABORED, NO SOB NOTED. IV TO RIGHT WRIST IN PLACE. PATIENT BLOOD PRESSURE NOW [id number], HR 80, WILL CALL [facility] FOR AVAILABLE LEAD ELECTRICIAN TIME TO TRANSFER PATIENT TO [facility]. BED LOCKED AND IN LOWEST POSITION, CALL LIGHT IN REACH. WILL CONTINUE TO MONITOR.
[2017-08-07] MEDS: LIDOCAINE 5% (PATCH) 1 EA PATCH TP SCH (19:42)
[2017-08-07 19:50] VITALS: BP 156/83
--- NOTE | 2017-08-07 20:00 | NUR ---
MS RN NOTE: PATIENT TO BE PICKED UP IN 30 MINUTES. PATIENT COMPLAINS OF SEVERE PAIN 9/10 TO BACK, MORPHINE 2MG IV GIVEN PER MD ORDER. WILL CONTINUE TO MONITOR.
--- NOTE | 2017-08-07 21:45 | NUR ---
MS RN NOTE: PATIENT PICKED UP FOR TRANSFER TO [facility]. REPORT GIVEN TO EMT, AND DISCHARGE PAPERWORK PROVIDED. IV TO RIGHT WRIST REMOVED, COVERED WITH GAUZE, PRESSURE APPLIED, AND SECURED WITH TAPE. UPDATED REPORT GIVEN TO SNF, SPOKE TO GAVIN, REGARDING LAST PAIN MEDICATIONS GIVEN. VITAL SIGNS STABLE. PATIENT OFF FLOOR WITH BELONGINGS IN STABLE CONDITION.
== END 2017-08-07 21:45 | DRG 552 ==
LOC: ER 20:51 → MEDSG2 08-05 00:22
PROVIDERS: ADMIT Nurse Practitioner Acute Care; ATTEND Nurse Practitioner Acute Care
DX: M48.061 Spinal stenosis, lumbar region without neurogenic claudication (principal); E44.0 Moderate protein-calorie malnutrition; J44.9 Chronic obstructive pulmonary disease, unspecified; G62.9 Polyneuropathy, unspecified; M54.9 Dorsalgia, unspecified; E87.6 Hypokalemia; M79.7 Fibromyalgia; G89.4 Chronic pain syndrome; I10 Essential (primary) hypertension; Z96.641 Presence of right artificial hip joint; Z82.49 Family history of ischemic heart disease and other diseases of the circulatory system; F12.90 Cannabis use, unspecified, uncomplicated; Z79.899 Other long term (current) drug therapy; Z88.1 Allergy status to other antibiotic agents; Z88.0 Allergy status to penicillin; Z88.2 Allergy status to sulfonamides; Z88.7 Allergy status to serum and vaccine; M81.0 Age-related osteoporosis without current pathological fracture; M47.816 Spondylosis without myelopathy or radiculopathy, lumbar region; E55.9 Vitamin D deficiency, unspecified; M77.9 Enthesopathy, unspecified
CPT/HCPCS: 36415; 72148-TC; 74018; 80048-TC; 80076-TC; 81000-TC; 85025-TC; 87081-TC; 97110-TC; 97530-TC; A4606; J0360; J1170; J2270; J2405; Z7610

== ENCOUNTER 2017-12-28 05:45 | Inpatient (IN) | payer MEDICARE, MEDICAID ==
[~2017-12-28] VITALS: Ht 157.5 cm; Wt 45.8 kg
[~2017-12-28 05:45] MED LIST changes: +DOCU-141 PO; +GABA300C PO; +LIDO30AD10 TP; +MAGN400O6 PO; -OXYC-128 PO; +OXYC10TA49 PO; +OXYC5CAP18 PO; +oxyCODONE HCL SR 10MG PO
--- NOTE | 2017-12-28 05:45 | NUR ---
BBRA 89 FROM HOME: C/O SOB WITH ADEQUATE CHEST RISE/FALL AND 02 SATURATION WNL. PT IS ALERT AND ORIENTED BUT MOANING CONSISTENTLY. SKIN IS WARM AND INTACT. WILL CONTINUE TO MONITOR FOR ANY CHANGES DURING THE SHIFT.
--- NOTE | 2017-12-28 05:46 | NUR ---
ER MD STACY
[2017-12-28] MEDS ORDERED: ONDANSETRON HCL/PF 4 MG/2 ML VIAL ONE (06:27)
[2017-12-28] MEDS ORDERED: MORPHINE SULFATE INJ 4 MG/ML DISP.SYRIN ONE (06:28)
[2017-12-28] MEDS ORDERED: MORPHINE SULFATE INJ 2 MG/ML DISP.SYRIN IV ONE (06:30)
[2017-12-28] MEDS ORDERED: IV NS 0.9% 500 ML BAG IV ONE (06:30)
[2017-12-28] MEDS ORDERED: ONDANSETRON HCL/PF 4 MG/2 ML VIAL IVP ONE (06:30)
--- NOTE | 2017-12-28 06:38 | NUR ---
BLOOD SENT TO LAB WITH CHANGE HOUSE ATTENDANT
[2017-12-28 06:49] LABS: BASOPHILS % (AUTO) 0.1 % (0.0-2.0); EOSINOPHILS % (AUTO) 0.1 % (0.0-6.0); HEMATOCRIT 39 % (33-45); HEMOGLOBIN 12.7 g/dL (11.5-14.8); LYMPHOCYTES # (AUTO) 1.9 /CMM (0.8-4.8); LYMPHOCYTES % (AUTO) 27.9 % (20.0-44.0); MEAN CORPUSCULAR HEMOGLOBIN 30 PG (26.0-33.0); MEAN CORPUSCULAR HGB CONC 33 g/dl (31.0-36.0); MEAN CORPUSCULAR VOLUME 92 fL (82-100); MONOCYTES # (AUTO) 0.4 /CMM (0.1-1.30); MONOCYTES % (AUTO) 5.5 % (2.0-12.0); NEUTROPHILS # (AUTO) 4.6 /CMM (1.8-8.9); NEUTROPHILS % (AUTO) 66.4 % (43.0-81.0); PLATELET COUNT (AUTO) 433 /CMM (150-450); RDW COEFFICIENT OF VARIATION 16.7 (11.5-15.0); RED BLOOD CELL COUNT(AUTO) 4.25 MIL/uL (4.0-5.2); WHITE BLOOD COUNT (AUTO) 6.9 K/uL (4.3-11.0)
--- NOTE | 2017-12-28 06:57 | NUR ---
PT OFF TO CT
[2017-12-28] MEDS ORDERED: HALOPERIDOL LACTATE INJ 5 MG/ML VIAL ONE (06:59)
[2017-12-28] MEDS ORDERED: diphenhydrAMINE HCL 50 MG/ML VIAL ONE (06:59)
[2017-12-28] MEDS ORDERED: HALOPERIDOL LACTATE INJ 5 MG/ML VIAL IM ONE (07:00)
[2017-12-28] MEDS ORDERED: diphenhydrAMINE HCL 50 MG/ML VIAL IV ONE (07:00)
[2017-12-28 07:08] LABS: ALANINE AMINOTRANSFERASE 27 U/L (12-78); ALBUMIN 2.6 g/dL (3.4-5.0); ALKALINE PHOSPHATASE 215 U/L (46-116); ASPARTATE AMINOTRANSFERASE 58 U/L (15-37); BILIRUBIN,DIRECT 0.8 mg/dL (0.0-0.2); BILIRUBIN,TOTAL 1.5 mg/dL (0.2-1.0); CALCIUM, SERUM 8.6 mg/dL (8.5-10.1); CARBON DIOXIDE 23 mmol/L (21-32); CHLORIDE 99 mmol/L (98-107); CREATININE 0.8 mg/dL (0.6-1.3); GLUCOSE 104 mg/dL (74-106); SODIUM SERUM 139 mmol/L (136-145); TOTAL PROTEIN, SERUM 6.3 g/dL (6.4-8.2); UREA NITROGEN, BLOOD 9 mg/dL (7-18)
[2017-12-28 07:10] LABS: LYMPHOCYTES % (MANUAL) 19 % (16-48); MONOCYTES % (MANUAL) 1 % (0-11.0); NEUTROPHILS % (MANUAL) 80 (42-76)
[2017-12-28 07:12] LABS: POTASSIUM 2.4 mmol/L (3.5-5.1)
--- NOTE | 2017-12-28 07:13 | NUR ---
PT BACK FROM CT
[2017-12-28 07:15] LABS: TROPONIN I < 0.017 ng/mL (0.00-0.056)
[2017-12-28 07:20] LABS: INR 1.08 (0.87-1.13)
[2017-12-28] MEDS ORDERED: QUET25TA PO (07:34)
[2017-12-28] MEDS ORDERED: GABA-534 PO (07:34)
[2017-12-28] MEDS ORDERED: LORA0.5T PO (07:35)
[2017-12-28] MEDS ORDERED: BUPR1TAB SL (07:37)
--- NOTE | 2017-12-28 07:46 | NUR ---
PAGED EPIC POLICE SERGEANT PRECINCT IS DR MILES
[2017-12-28] MEDS ORDERED: POTASSIUM CL. PREMIX PERIPHER. 50 ML ONE ×2 (07:51→08:23)
[2017-12-28] MEDS: POTASSIUM CL. PREMIX PERIPHER. 50 ML IV SCH ×6 (08:02→19:25)
[2017-12-28 08:13] LABS: APPEARANCE,URINE SL CLOUDY (CLEAR); BILIRUBIN,URINE 1+ (NEGATIVE); BLOOD, URINE TRACE-INTA Ery/uL (NEGATIVE); COLOR,URINE YELLOW (YELLOW); KETONES,URINE 3+ (NEGATIVE); LEUKOCYTE ESTERASE ,URINE NEGATIVE (NEGATIVE); NITRITE, URINE NEGATIVE (NEGATIVE); PH,URINE 7.5 (5.0-8.0); PROTEIN,URINE NEGATIVE (NEGATIVE); UGLUCOSE NEGATIVE (NEGATIVE)
[2017-12-28 08:20] LABS: BACTERIA,URINE 2+ /HPF (None Seen); MUCUS,URINE Few /LPF (None Seen); RBC,URINE 0-2 /HPF (0-2); URINE AMORPHOUS URATE Few /HPF (None Seen); WBC,URINE 0-2 /HPF (0-3)
[2017-12-28 08:21] LABS: COARSE GRANULAR CASTS,URINE Few /LPF (None Seen)
--- NOTE | 2017-12-28 08:21 | NUR ---
REPORT GIVEN TO FENG PERES FOR [facility] TELE [id number]
--- NOTE | 2017-12-28 08:35 | NUR ---
PATIENT TRANSPORTED FOR CT HEAD.
--- NOTE | 2017-12-28 09:20 | NUR ---
SPD MANAGER NOTES RECEIVED PATIENT ALERT, ORIENTED X1 NO SOB OR ACUTE DISTRESS NOTED. PATIENT WITH PERIPHERAL IV ON LEFT LOWER LEG G 20. PATIENT NOTED MOANING DR. MILES MADE AWARE STATES WILL COME TO EVALUATE PATIENT. PATIENTS SKIN IS INTACT. BED IN LOW LOCKED POSITION , CALL LIGHT WITHIN REACH. WILL CONTINUE TO MONITOR.
[2017-12-28 09:30] VITALS: BP 172/98
--- NOTE | 2017-12-28 10:30 | NUR ---
THEATER MANAGER NOTES CALL RECEIVED FROM DR. RAPHAEL OFFICE STATING SHE WILL BE HER DOCTOR. CHARGE NURSE MADE AWARE AND ADMITTING MADE AWARE. WILL CONTINUE OT MONITOR.
[2017-12-28] MEDS: ENSURE ENLIVE 237 ML LIQUID (VANILLA) PO SCH ×2 (13:00→16:49)
[2017-12-28] MEDS: TRAMADOL HCL 50 MG TABLET PO PRN (13:41)
[2017-12-28 16:00] VITALS: BP 183/94
--- NOTE | 2017-12-28 16:00 | NUR ---
TORCH BURNER NOTES PATIENT NOTED WITH BP OF 183/94 PULSE 98 RESP. : 18 TEMP: 98.4 O2 SAT 99% DR. CALLE MADE AWARE ORDERS TO FOR CLONODIN 0.1MG EVERY 4 HOURS NEEDED IF SBP ABOVE 150. ORDERS NOTED AND CARRIED OUT.
--- NOTE | 2017-12-28 16:20 | NUR ---
CLOUD DEVELOPER NOTES ORDERS RECEIVED FROM DR. CALLE TO COMPLETE 3RD BAG OF POTASSIUM IV AND RECHECK POTASSIUM IF STILL LOW CONTINUE WITH FOURTH DOSE. ORDERS NOTED AND CARRIED OUT.
[2017-12-28] MEDS ORDERED: MAGNESIUM HYDROXIDE 30 ML UDC PO PRN (16:30)
[2017-12-28] MEDS: LORAZEPAM 0.5 MG TABLET PO PRN (16:41)
[2017-12-28] MEDS: CLONIDINE HCL 0.1 MG TABLET PO PRN ×2 (16:41→21:27)
[2017-12-28] MEDS: GABAPENTIN 300 MG CAPSULE PO SCH (16:41)
[2017-12-28] MEDS: CALCIUM CARB 600MG /VIT D 1 EACH TABLET PO SCH (16:43)
[2017-12-28 17:00] VITALS: BP 158/92
[2017-12-28] MEDS ORDERED: NALOXONE HCL SL SCH (17:00)
[2017-12-28] MEDS ORDERED: TEMAZEPAM 15 MG CAPSULE PO PRN (17:00)
[2017-12-28] MEDS ORDERED: BUPRENORPHINE HCL SL SCH (17:00)
--- NOTE | 2017-12-28 18:37 | NUR ---
ANIMAL KEEPER NOTES PATIENT IN BED RESTING NO SOB OR ACUTE DISTRESS NOTED. ALL DUE MEDICATIONS ADMINISTERED. ALL NEEDS MET. AWAITING FOR POTASSIUM LEVEL TO ADMINISTER LAST 10 MEQ POTASSIUM ORDERED PER MD ORDERS. PERIPHERAL IV INTACT PATENT ON LEFT LOWER LEG. WILL ENDORSE CARE TO PM SHIFT.
--- NOTE | 2017-12-28 19:10 | NUR ---
TELE/RN OPENING NOTES PT RECEIVED WITH EYES CLOSED. EASILY AROUSABLE TO NAME. A/OX2. ON ROOM AIR, BREATHING EVEN AND UNLABORED. ON TELE MONITOR SHOWING SR WITH HR 90. IV TO LLE PATENT AND INTACT. 1 BAG OF POTASSIUM CHLORIDE TO BE ADMINISTERED. PER MD, AWAIT RESULT OF LATEST POTASSIUM DRAW, IF STILL LOW ADMINISTER FINAL BAG. IF VALUE WNL, HOLD. BED IN LOW/LOCKED POSITION WITH CALL LIGHT IN REACH. SIDE RAILS UPX3 WITH BED ALARM ON FOR SAFETY. WILL CONTINUE TO MONITOR
--- NOTE | 2017-12-28 19:30 | NUR ---
TELE/RN NOTES LATEST POTASSIUM LEVEL=3.1, ADMINISTERED 10MEQ POTASSIUM CHLORIDE IV ORDERED.
[2017-12-28 20:00] VITALS: BP 154/89
[2017-12-28 20:19] VITALS: BP 154/89
[2017-12-28] MEDS: QUETIAPINE FUMARATE 25 MG TABLET PO SCH (21:27)
[2017-12-29] VITALS (7 sets, daily range): BP systolic 130–149; BP diastolic 72–85
--- NOTE | 2017-12-29 06:36 | NUR ---
TELE/RN CLOSING NOTES PT ASLEEP, EASILY AROUSABLE TO NAME/LIGHT TOUGH. ON ROOM AIR, BREATHING EVEN AND UNLABORED. NO S/S OF SOB OR PAIN AT THIS TIME. SR WITH HR 80'S. IV TO LLE PATENT AND INTACT. ASPIRATION PRECAUTIONS IMPLEMENTED DURING SHIFT. KEPT PT COMFORTABLE DURING SHIFT. ALL NEEDS MET. TURNED/REPOSITIONED Q2H, HEELS OFFLOADED. NO SIGNIFICANT CHANGES OVERNIGHT. BED REMAINS IN LOW/LOCKED POSITION WITH CALL LIGHT IN REACH. SIDE RAILS UPX3 WITH BED ALARM ON. WILL ENDORSE TO DAY SHIFT RN ELLIS.
--- NOTE | 2017-12-29 07:20 | NUR ---
RN OPENING NOTES PATIENT RECEIVED AWAKE ALERT AND VERBALLY RESPONSIVE, ABLE TO MAKE NEEDS KNOWN. RESPIRATIONS EVEN AND UNLABORED, DENIES ANY PAIN OR DISCOMFORT AT THIS TIME. IV ACCESS TO LEFT LEG PATENT AND INTACT NO REDNESS OR INFILTRATION NOTED. CALL LIGHT WITHIN EASY REACH, KEPT CLEAN DRY AND COMFORTABLE CALL LIGHT WITHIN EASY REACH WILL CONTINUE TO MONITOR
[2017-12-29] MEDS: PANTOPRAZOLE 40 MG TABLET.DR PO SCH (08:51)
[2017-12-29] MEDS: CHOLECALCIFEROL (VITAMIN D 3) 400 UNIT TABLET PO SCH (08:51)
[2017-12-29] MEDS: ESCITALOPRAM OXALATE (10 MG) 10 MG TABLET PO SCH (08:51)
[2017-12-29] MEDS: CALCIUM CARB 600MG /VIT D 1 EACH TABLET PO SCH (08:51)
[2017-12-29] MEDS: GABAPENTIN 300 MG CAPSULE PO SCH ×2 (08:51→16:57)
[2017-12-29] MEDS: LORAZEPAM 0.5 MG TABLET PO PRN ×2 (08:57→20:25)
[2017-12-29] MEDS: ENSURE ENLIVE 237 ML LIQUID (VANILLA) PO SCH ×3 (09:00→17:00)
[2017-12-29] MEDS: TRAMADOL HCL 50 MG TABLET PO PRN ×2 (16:56→21:57)
[2017-12-29 18:24] LABS: CALCIUM, SERUM 7.7 mg/dL (8.5-10.1); CREATININE 0.7 mg/dL (0.6-1.3)
[2017-12-29 18:28] LABS: POTASSIUM 2.7 mmol/L (3.5-5.1)
--- NOTE | 2017-12-29 18:47 | NUR ---
RN CLOSING NOTES PATIENT AWAKE ALERT AND VERBALLY RESPONSIVE, ABLE TO MAKE NEEDS KNOWN. RESPIRATIONS EVEN AND UNLABORED, DENIES ANY PAIN OR DISCOMFORT AT THIS TIME. IV ACCESS TO LEFT LEG PATENT AND INTACT NO REDNESS OR INFILTRATION NOTED. CALL LIGHT WITHIN EASY REACH, KEPT CLEAN DRY AND COMFORTABLE CALL LIGHT WITHIN EASY REACH WILL CONTINUE TO MONITOR AND ENDORSE TO NEXT SHIFT FOR CONTINUITY OF CARE
[2017-12-29 18:49] LABS: THYROID STIMULATING HORMONE 3.9 uIU/mL (0.358-3.74)
[2017-12-29] MEDS: POTASSIUM CL. PREMIX PERIPHER. 50 ML IV SCH ×3 (19:08→22:34)
--- NOTE | 2017-12-29 19:20 | NUR ---
MS/RN OPENING NOTES PT RECEIVED AWAKE, RESTING COMFORTABLY IN BED. A/OX2. ON ROOM AIR, BREATHING EVEN AND UNLABORED. NO S/S OF SOB OR ACUTE DISTRESS NOTED. IV TO LEFT LOWER LEG PATENT AND INTACT. FOR POTASSIUM REPLACEMENT. BED IN LOW/LOCKED POSITION WITH CALL LIGHT IN REACH. SIDE RAILS UPX3 WITH BED ALARM ON FOR SAFETY. WILL CONTINUE TO MONITOR
--- NOTE | 2017-12-29 20:03 | NUR ---
MS/RN NOTES PER DR. CALLE, CHANGE TRAMADOL 50MG TO Q4H PRN, ADD ENSURE ENLIVE TID IF NOT ALREADY ORDERED AND MONITOR FOR CONSTIPATION. ORDERS NOTED AND WILL CARRY OUT
[2017-12-29] MEDS: QUETIAPINE FUMARATE 25 MG TABLET PO SCH (23:03)
[2017-12-30] MEDS: POTASSIUM CL. PREMIX PERIPHER. 50 ML IV SCH (00:04)
[2017-12-30] MEDS: TRAMADOL HCL 50 MG TABLET PO PRN ×4 (02:02→16:27)
--- NOTE | 2017-12-30 06:53 | NUR ---
MS/RN CLOSING NOTES PT RESTING COMFORTABLY IN BED. FLAT D/T BACK PAIN. PAIN MANAGED Q4H WITH PRN TRAMADOL. HOT PACKS PROVIDED BUT WITH LITTLE RELIEF. ON ROOM AIR, BREATHING EVEN AND UNLABORED. NO SOB. ON PUREED DIET BUT TOLERATING WHOLE PILLS AND LIQUIDS WELL. IV TO LEFT LEG PATENT AND INTACT. POTASSIUM REPLACED WITH 40MEQ IV. BED REMAINS IN LOW/LOCKED POSITION, CALL LIGHT IN REACH AND BILATERAL UPPER SIDE RAILS UP. WILL ENDORSE TO DAY SHIFT RN ELLIS.
[2017-12-30 07:00] LABS: CALCIUM, SERUM 7.6 mg/dL (8.5-10.1); CREATININE 0.6 mg/dL (0.6-1.3); POTASSIUM 3.2 mmol/L (3.5-5.1)
--- NOTE | 2017-12-30 07:15 | NUR ---
MS/RN OPENING NOTE PATIENT IS RECEIVED IN BED AWAKE. ALERT AND ORIENTED X2. DENIES SOB. RESPIRATION REGULAR AND UNLABORED. DENIES PAIN. PATIENT IN NO APPARENT DISTRESS. LEFT LEG G 20 PATENT AND SALINE LOCKED. BED LOW AND LOCKED. SIDE RAILS UP X3. CALL LIGHT WITHIN REACH. WILL CONTINUE TO MONITOR.
[2017-12-30 08:00] VITALS: BP 140/80
[2017-12-30] MEDS: CHOLECALCIFEROL (VITAMIN D 3) 400 UNIT TABLET PO SCH (08:27)
[2017-12-30] MEDS: CALCIUM CARB 600MG /VIT D 1 EACH TABLET PO SCH (08:27)
[2017-12-30] MEDS: PANTOPRAZOLE 40 MG TABLET.DR PO SCH (08:27)
[2017-12-30] MEDS: ESCITALOPRAM OXALATE (10 MG) 10 MG TABLET PO SCH (08:28)
[2017-12-30] MEDS: GABAPENTIN 300 MG CAPSULE PO SCH ×2 (08:28→16:22)
[2017-12-30] MEDS: ENSURE ENLIVE 237 ML LIQUID (VANILLA) PO SCH ×3 (08:30→17:00)
[2017-12-30] MEDS: POTASSIUM CHLORIDE 20 MEQ POWDER PACKET PO SCH ×2 (11:11→12:22)
[2017-12-30 16:00] VITALS: BP 134/71
[2017-12-30] MEDS: LORAZEPAM 0.5 MG TABLET PO PRN (17:29)
--- NOTE | 2017-12-30 18:06 | NUR ---
MS/RN CLOSING NOTE PATIENT ALERT AND ORIENTED X2. DENIES SOB. PATIENT IN ROOM AIR AND OXYGEN SATURATION AT 97%. RESPIRATION REGULAR AND UNLABORED. DENIES PAIN. PATIENT IN STABLE CONDITION. LEFT LEG G 20 PATENT AND SALINE LOCKED. GOOD AND GENTLE SKIN CARE RENDERED. KEPT CLEAN, DRY AND COMFORTABLE. ALL NEEDS ATTENDED AND ANTICIPATED. BED LOW AND LOCKED. SIDE RAILS UP X3. CALL LIGHT WITHIN REACH. WILL ENDORSE TO ARTILLERY OFFICER.
[2017-12-30 20:00] VITALS: BP 136/91
--- NOTE | 2017-12-30 20:00 | NUR ---
MS RN OPENING NOTES RECEIVED REPORT FROM AM RN. PATIENT A/A/O X2, ABLE TO MAKE NEEDS KNOWN. BREATHING EVEN & UNLABORED, TOLERATING ROOM AIR. DENIES ANY SOB OR DIFFICULTY BREATHING. PULSES PRESENT AND SKIN WARM, DRY & INTACT. LEFT LEG #20 INTACT & PATENT W/ DRESSING CDI, SALINE LOCKED. DENIES ANY PAIN OR DISCOMFORT @ THIS TIME. SAFETY MEASURES IN PLACE W/ BED ALARM ON & CALL LIGHT WITHIN REACH. INSTRUCTED TO CALL FOR ASSISTANCE. RESTING COMFORTABLY IN BED. WILL CONTINUE TO MONITOR.
[2017-12-30] MEDS: QUETIAPINE FUMARATE 25 MG TABLET PO SCH (21:16)
--- NOTE | 2017-12-30 22:30 | NUR ---
RN NOTES SPOKE TO ALINE RAINES REGARDING CHANGE FOR TEMAZEPAM FROM 30MG TO 15MG. PER PATIENT, SHE ONLY TAKES 15MG. NEW ORDER CARRIED OUT.
[2017-12-30] MEDS ORDERED: TEMAZEPAM 15 MG CAPSULE PO PRN (23:00)
[2017-12-31 07:02] LABS: CALCIUM, SERUM 8.4 mg/dL (8.5-10.1); CREATININE 0.6 mg/dL (0.6-1.3); POTASSIUM 3.5 mmol/L (3.5-5.1)
--- NOTE | 2017-12-31 07:25 | NUR ---
RN NOTES PATIENT A/OX2, BREATHING EVEN AND UNLABORED, NO SOB NOTED, DENIES PAIN OR DISCOMFORT AT THIS TIME. KEPT COMFORTABLE, NEEDS ATTENDED, CALL LIGHT WITHIN REACH, WILL CONTINUE TO MONITOR.
[2017-12-31 08:00] VITALS: BP 152/85
[2017-12-31] MEDS: GABAPENTIN 300 MG CAPSULE PO SCH ×2 (08:23→17:11)
[2017-12-31] MEDS: TRAMADOL HCL 50 MG TABLET PO PRN ×3 (08:23→21:03)
[2017-12-31] MEDS: LEVOTHYROXINE SODIUM 25 MCG TABLET PO SCH (08:23)
[2017-12-31] MEDS: PANTOPRAZOLE 40 MG TABLET.DR PO SCH (08:23)
[2017-12-31] MEDS: CALCIUM CARB 600MG /VIT D 1 EACH TABLET PO SCH (08:23)
[2017-12-31] MEDS: ESCITALOPRAM OXALATE (10 MG) 10 MG TABLET PO SCH (08:24)
[2017-12-31] MEDS: CHOLECALCIFEROL (VITAMIN D 3) 400 UNIT TABLET PO SCH (08:24)
[2017-12-31] MEDS: ENSURE ENLIVE 237 ML LIQUID (VANILLA) PO SCH ×3 (08:27→17:11)
[2017-12-31] MEDS: LORAZEPAM 0.5 MG TABLET PO PRN ×2 (09:02→15:09)
[2017-12-31] MEDS ORDERED: Z GUARD REMEDY 2 OZ OINT TP PRN (11:00)
--- NOTE | 2017-12-31 14:55 | NUR ---
RN NOTES PATIENT SEEN BY DR. CALLE, RECEIVED NEW ORDERS TO INCREASE ATIVAN 0.5MG TO Q6HR PRN, DISCHARGE PLANNING HOME WITH HOME HEALTH, AND ADVANCE DIET TO SOFT DIET. ORDERS NOTED AND CARRIED OUT. PATIENT AWARE.
[2017-12-31] MEDS: POTASSIUM CHLORIDE 20 MEQ TAB.PRT.SR PO SCH (15:09)
[2017-12-31 16:00] VITALS: BP 147/73
--- NOTE | 2017-12-31 18:31 | NUR ---
RN NOTES PATIENT A/OX2, PATIENT WAS EATING DINNER WHEN SHE FELT NAUSEOUS AND VOMITED X1, NO FOOD CONTENT NOTED, MOSTLY SALIVA WAS OBSERVED. PATIENT IS IN NO DISTRESS, NO SOB NOTED, PATIENT STILL FEELING NAUSEOUS, PAGED DR. CALLE, AWAITING FOR A CALL BACK. NEEDS ATTENDED AND MET, CALL LIGHT WITHIN REACH, WILL ENDORSE TO ONCOLOGY SOCIAL WORK FOR ELLIS.
--- NOTE | 2017-12-31 19:03 | NUR ---
RN NOTES RECEIVED A CALL FROM DR. CALLE AND RECEIVED ORDER FOR A ZOFRAN 4MG Q6HR PRN. ORDER NOTED AND CARRIED OUT.
--- NOTE | 2017-12-31 19:30 | NUR ---
MS RN OPENING NOTES: RECEIVED PT IN BED AND IS FEELING NAUSEOUS. WAITING FOR ZOFRAN TO BE CLEARED BY PHARMACY. PT HAS IV ON L LEG AND IS CURRENT H/L. PT IS A/OX2. PT SITTING UP. CALL LIGHT WITHIN PT'S REACH. BED KEPT IN LOW, LOCKED POSITION, AND SIDE RAILS X 2UP. WILL CONTINUE TO MONITOR PT.
[2017-12-31] MEDS: ONDANSETRON HCL/PF 4 MG/2 ML VIAL IV PRN (19:42)
[2017-12-31] MEDS: CLONIDINE HCL 0.1 MG TABLET PO PRN (20:05)
[2017-12-31 20:42] VITALS: BP 202/97
[2017-12-31] MEDS: QUETIAPINE FUMARATE 25 MG TABLET PO SCH (21:02)
--- NOTE | 2017-12-31 21:05 | NUR ---
MS RN NTOES: PT COMPLAINING OF 7/10 LOWER BACK PAIN. PT WAS ADMINISTERD TRAMADOL 50MG PO. WILL CONTINUE TO MONITOR PT.
[2017-12-31 21:59] VITALS: BP 113/71
[2018-01-01] MEDS: ONDANSETRON HCL/PF 4 MG/2 ML VIAL IV PRN (04:30)
[2018-01-01] MEDS: LORAZEPAM 0.5 MG TABLET PO PRN ×3 (04:35→16:59)
--- NOTE | 2018-01-01 04:36 | NUR ---
MS RN NOTES: PT APPEARS TO BE ANXIOUS AND IS REQUESTING FOR HER ATIVAN. PT WAS ADMINISTERED ATIVAN PO. WILL CONTINUE TO MONITOR PT.
[2018-01-01] MEDS: TRAMADOL HCL 50 MG TABLET PO PRN ×4 (04:47→17:00)
--- NOTE | 2018-01-01 06:50 | NUR ---
MS RN CLOSING NOTES: ALL NEEDS WERE ATTENDED AND ANTICIPATED FOR. PT KEPT CLEAN, DRY, AND COMFORTABLE. PT ON ROOM AIR AND TOLERATING WELL. SUCTION SETUP AT BEDSIDE. IV REMAINS INTACT ON L LEG. NO S/S OF DISTRESS. PT RESTING IN BED COMFORTABLY. WILL ENDORSE TO AM NURSE FOR ELLIS.
--- NOTE | 2018-01-01 07:39 | NUR ---
MS RN OPENING NOTES RECEIVED PT FROM NIGHTSHIFT NURSE IN STABLE CONDITION. PT IS A/O X2 (PERSON, PLACE). NO SOB OR ACUTE SIGNS OF DISTRESS NOTED. BREATHING IS EVEN AND UNLABORED. PT ON RA AND SATING WELL. SHE DENIES PAIN AT THIS TIME AND STATES THAT SHE IS COMFORTABLE IN HER CURRENT POSITION. IV TO LEFT LEG NOTED TO BE PATENT INTACT. NO REDNESS OR SIGNS OF INFILTRATION NOTED. BED IN LOW LOCKED POSITION, SIDE RAILS UP X3, CALL LIGHT WITHIN REACH. BED ALARM ON. WILL CONTINUE TO MONITOR
[2018-01-01 07:44] LABS: CALCIUM, SERUM 8.4 mg/dL (8.5-10.1); CREATININE 0.7 mg/dL (0.6-1.3); POTASSIUM 3.9 mmol/L (3.5-5.1)
[2018-01-01 08:00] VITALS: BP 140/76
[2018-01-01] MEDS: ENSURE ENLIVE 237 ML LIQUID (VANILLA) PO SCH ×3 (08:19→17:00)
[2018-01-01] MEDS: ESCITALOPRAM OXALATE (10 MG) 10 MG TABLET PO SCH (08:23)
[2018-01-01] MEDS: GABAPENTIN 300 MG CAPSULE PO SCH ×2 (08:23→16:59)
[2018-01-01] MEDS: PANTOPRAZOLE 40 MG TABLET.DR PO SCH (08:23)
[2018-01-01] MEDS: LEVOTHYROXINE SODIUM 25 MCG TABLET PO SCH (08:23)
[2018-01-01] MEDS: CHOLECALCIFEROL (VITAMIN D 3) 400 UNIT TABLET PO SCH (08:23)
[2018-01-01] MEDS: CALCIUM CARB 600MG /VIT D 1 EACH TABLET PO SCH ×2 (08:23→08:28)
[2018-01-01] MEDS: POTASSIUM CHLORIDE 20 MEQ TAB.PRT.SR PO SCH (08:24)
[2018-01-01 16:01] VITALS: BP 129/76
[2018-01-01 18:07] VITALS: BP 153/93
[2018-01-01] MEDS: CLONIDINE HCL 0.1 MG TABLET PO PRN (18:07)
--- NOTE | 2018-01-01 18:28 | NUR ---
MS CONTRACT NEGOTIATOR NOTES PT WAS DISCHARGED FROM FACILITY TO HOME IN STABLE CONDITION. ALL NEEDS WERE MET DURING SHIFT AND ORDERS CARRIED OUT ACCORDINGLY. ALL DUE MEDS GIVEN. PAIN PROPERLY MANAGED WITH PRN MEDICATIONS. VITALS STABLE PRIOR TO D/C. PT'S CAREGIVER LOYDA CONTACTED PRIOR TO TRANSFER AND STATES THE HE WILL BE HOME TO RECEIVE THE PT ONCE SHE ARRIVES. LOYDA ALSO STATES THAT HE ALSO HAS THE PT'S WALLET AND CELLPHONE. PT LEFT WITH ALL OTHER BELONGINGS. IV WAS SUCCESSFULLY REMOVED WITH NO COMPLICATIONS. PT SIGNED ALL D/C PAPERWORK. COPIES MADE AND PLACED IN PT'S CHART. D/C PHOTOS TAKEN AND PLACED IN PT'S CHART. PT WAS SAFELY TRANSFERRED FROM [facility] TO [facility] AND LEFT VIA AMBULANCE TRANSPORT
== END 2018-01-01 18:15 | disposition home health service (06) | DRG 640 ==
LOC: ER 05:46 → TELE 08:17 → MED 12-29 08:08
PROVIDERS: ADMIT General Practice; ATTEND General Practice
DX: E87.6 Hypokalemia (principal); G93.41 Metabolic encephalopathy; M80.052A Age-related osteoporosis with current pathological fracture, left femur, initial encounter for fracture; E46 Unspecified protein-calorie malnutrition; Z96.641 Presence of right artificial hip joint; F12.90 Cannabis use, unspecified, uncomplicated; I10 Essential (primary) hypertension; K21.9 Gastro-esophageal reflux disease without esophagitis; G89.29 Other chronic pain; Z98.84 Bariatric surgery status; Z90.710 Acquired absence of both cervix and uterus; Z88.1 Allergy status to other antibiotic agents; Z88.0 Allergy status to penicillin; Z88.2 Allergy status to sulfonamides; Z88.7 Allergy status to serum and vaccine; Z79.899 Other long term (current) drug therapy; F17.210 Nicotine dependence, cigarettes, uncomplicated; K59.09 Other constipation; E03.9 Hypothyroidism, unspecified
CPT/HCPCS: 36415; 70450-TC; 71045-TC; 80048-TC; 80076-TC; 81000-TC; 83605-TC; 84132-TC; 84443-TC; 84484-TC; 85025-TC; 85730-TC; 87040-TC; 87081-TC; 87086-TC; 97110-TC; 97116-TC; 97530-TC; A4606; J1200; J1630; J2270; J2405; J3480; J7030; J7040; Z7610

== ENCOUNTER 2018-04-22 22:12 | Inpatient (IN) | payer MEDICARE, MEDICAID ==
[~2018-04-22] VITALS: Ht 157.5 cm; Wt 36.9 kg
[~2018-04-22 22:12] MED LIST changes: +BUPR1TAB SL; -DOCU-141 PO; +GABA-534 PO; -GABA300C PO; -LIDO30AD10 TP; +LORA0.5T PO; -OXYC10TA49 PO; -OXYC5CAP18 PO; +QUET25TA PO; -oxyCODONE HCL SR 10MG PO
[2018-04-22] MEDS ORDERED: LORAZEPAM 1 MG TABLET PO ONE (23:00)
--- NOTE | 2018-04-22 23:00 | NUR ---
PT BIB RA WITH A C/O BACK PAIN. PT IS CRYING AND C/O FEELING COLD AND OF BACK PAIN
[2018-04-22] MEDS ORDERED: LORAZEPAM 1 MG TABLET ONE (23:08)
--- NOTE | 2018-04-22 23:36 | NUR ---
DR. HYATT IS AT THE BEDSIDE.
[2018-04-23 00:04] LABS: BASOPHILS % (AUTO) 0.2 % (0.0-2.0); HEMATOCRIT 39 % (33-45); HEMOGLOBIN 12.7 g/dL (11.5-14.8); LYMPHOCYTES % (AUTO) 8.1 % (20.0-44.0); MEAN CORPUSCULAR HGB CONC 33 g/dl (31.0-36.0); MEAN CORPUSCULAR VOLUME 94 fL (82-100); MONOCYTES # (AUTO) 0.9 /CMM (0.1-1.30); NEUTROPHILS # (AUTO) 9.9 /CMM (1.8-8.9); NEUTROPHILS % (AUTO) 83.7 % (43.0-81.0); PLATELET COUNT (AUTO) 456 /CMM (150-450); RED BLOOD CELL COUNT(AUTO) 4.13 MIL/uL (4.0-5.2); WHITE BLOOD COUNT (AUTO) 11.8 K/uL (4.3-11.0)
--- NOTE | 2018-04-23 00:10 | NUR ---
IN AND OUT CATH DONE. APPROX 150ML YELLOW URINE OUTPUT NOTED.
--- NOTE | 2018-04-23 00:12 | NUR ---
PT LEFT FOR CT.
[2018-04-23 00:16] LABS: CALCIUM, SERUM 9.2 mg/dL (8.5-10.1); CARBON DIOXIDE 27 mmol/L (21-32); CHLORIDE 99 mmol/L (98-107); CREATININE 0.6 mg/dL (0.6-1.3); GLUCOSE 108 mg/dL (74-106); POTASSIUM 3.6 mmol/L (3.5-5.1); SODIUM SERUM 137 mmol/L (136-145); UREA NITROGEN, BLOOD 7 mg/dL (7-18)
[2018-04-23 00:22] LABS: ALANINE AMINOTRANSFERASE 15 U/L (12-78); ALBUMIN 2.2 g/dL (3.4-5.0); ALCOHOL, BLOOD < 3 mg/dL (0-0); ALKALINE PHOSPHATASE 191 U/L (46-116); ASPARTATE AMINOTRANSFERASE 16 U/L (15-37); BILIRUBIN,DIRECT 0.3 mg/dL (0.0-0.2); BILIRUBIN,TOTAL 0.9 mg/dL (0.2-1.0); SALICYLATE 3.5 mg/dL (2.8-20.0); TOTAL PROTEIN, SERUM 7.3 g/dL (6.4-8.2)
[2018-04-23 00:24] LABS: ACETAMINOPHEN 0 ug/ml (10-30)
[2018-04-23 00:29] LABS: SERUM AMMONIA < 10 umol/L (11-32)
[2018-04-23 00:30] LABS: THYROID STIMULATING HORMONE 3.129 uIU/mL (0.358-3.74)
[2018-04-23] MEDS ORDERED: MAGNESIUM HYDROXIDE 30 ML UDC PO PRN ×2 (00:30→11:00)
[2018-04-23] MEDS ORDERED: MAG HYDROX/AL HYDROX/SIMETH 30 ML UDC PO PRN (00:30)
[2018-04-23] MEDS ORDERED: ONDANSETRON HCL/PF 4 MG/2 ML VIAL IVP PRN (00:30)
[2018-04-23] MEDS ORDERED: LORAZEPAM INJ 2 MG/ML VIAL IV PRN (00:30)
[2018-04-23] MEDS ORDERED: ZOLPIDEM TARTRATE 5 MG TABLET PO PRN (00:30)
--- NOTE | 2018-04-23 00:30 | NUR ---
REPORT GIVEN TO FENG SYED.
--- NOTE | 2018-04-23 00:30 | NUR ---
PT RETURNED FROM CT.
[2018-04-23 00:41] LABS: APPEARANCE,URINE CLOUDY (CLEAR); BILIRUBIN,URINE NEGATIVE (NEGATIVE); BLOOD, URINE TRACE Ery/uL (NEGATIVE); COLOR,URINE YELLOW (YELLOW); KETONES,URINE 3+ (NEGATIVE); LEUKOCYTE ESTERASE ,URINE 1+ (NEGATIVE); NITRITE, URINE NEGATIVE (NEGATIVE); PH,URINE 8.5 (5.0-8.0); PROTEIN,URINE NEGATIVE (NEGATIVE); UGLUCOSE NEGATIVE (NEGATIVE)
[2018-04-23 00:48] LABS: BACTERIA,URINE Many /HPF (None Seen); SQUAMOUS EPITHELIAL CELL,UR Many /HPF (None Seen)
[2018-04-23] MEDS ORDERED: LEVOFLOXACIN 750 MG /D5W 150ML 150 ML IV ONE (00:57)
[2018-04-23] MEDS ORDERED: LEVOFLOXACIN 750 MG /D5W 150ML 750 MG in PREMIX 1 EA IV SCH (01:00)
--- NOTE | 2018-04-23 01:09 | NUR ---
PT LEFT FOR MS VIA BLANCO.
--- NOTE | 2018-04-23 01:10 | NUR ---
RECIEVED [facility] ER ALERT AND SMILING ORIENTATED X3. ABLE TO ANSWER QUESTION. NOTED NO DENTURES AND NO TEETH. MOVES ALL EXTREMITIES. SPEECH CLEAR. EYE GLASSES ON GREEN PANTS AND TOP ONLY BELONGINGS SEEN. FOLLOWS DIRECTIONS.
[2018-04-23 01:25] VITALS: BP 140/89
[2018-04-23 01:30] VITALS: BP 140/86
[2018-04-23] MEDS: IV NS 0.9% 1,000 ML IV PRN ×2 (02:26→22:07)
[2018-04-23] MEDS: HYDROCODONE/APAP 5/325MG 1 EACH TABLET PO PRN ×3 (03:34→22:08)
--- NOTE | 2018-04-23 05:03 | NUR ---
ENDING NOTES: RECIEVED ALERT AND ABLE TO ANSWER QUESTIONS APPRIOP. SHE FOLLOWED DIRECTIONS. AT 3:30 SHE STARTED CRYING A DIN'T WANT TO ANSWER ME. I HAD TO TALK LOUDLY AND CALL HER BY NAME, SHE STOPPED CRYING AND SAID SHE WAS HURTING, SHE COULD NOT TELL ME WHERE. NORCO I TAB AND WARM BLANKETS WERE EFFECTICE FOR PAIN AND REPOSITIONING HER LEFT SIDE.
--- NOTE | 2018-04-23 07:10 | NUR ---
RN OPENING NOTES RECEIVED PT. IN BED A&OX1. BREATHING ON ROOM AIR. PT. IS CRYING , AND IN A CONTRACTED POSITION. IV FLUIDS RUNNING AT 75 ML/HR. BED IS IN LOWEST, AND LOCKED POSITION. 2 SIDE RAILS UP, AND CALL LIGHT WITHIN REACH. ALL NEEDS MET. WILL CONTINUE TO ASSESS AND MONITOR.
--- NOTE | 2018-04-23 08:05 | NUR ---
PT. REFUSED TO HAVE VITALS TAKEN PER LOCAL TELEPHONE OPERATOR. PT. WAS EXPLAINED THE REASON FOR US TO TAKE HER VITAL SIGNS AND PT. STRONGLY REFUSED. Addendum: 04/23/18 at 0808 by EVELYN ULNA RN NOTE IS FOR A DIFFERENT PT.
[2018-04-23] MEDS: HYDROCODONE/APAP 10/325MG 1 EA TABLET PO PRN (10:35)
[2018-04-23] MEDS: CALCIUM CARBONATE 500 MG TAB.CHEW PO SCH (12:05)
[2018-04-23] MEDS: LORAZEPAM 0.5 MG TABLET PO PRN (12:06)
--- NOTE | 2018-04-23 15:04 | NUR ---
EVAL THE PATIENT FOR MRI, PATIENT IS IN POSTION/ MOVING HER MOUTH, SPOKE TO CHARGE NURSE MIMI./ THOMAS,.
[2018-04-23] MEDS: ACETAMINOPHEN 325 MG TABLET PO PRN (15:21)
[2018-04-23 16:01] VITALS: BP 116/67
--- NOTE | 2018-04-23 19:30 | NUR ---
MS RN NOTE: PATIENT RESTING IN BED, NO ACUTE DISTRESS NOTED. BREATHING EVEN AND UNLABORED, NO SOB NOTED. IV TO RAC IN PLACE, INFUSING NS AT 75 ML/HR. BED LOCKED AND IN LOWEST POSITION, CALL LIGHT IN REACH. WILL CONTINUE TO MONITOR.
[2018-04-23 19:58] VITALS: BP 152/90
--- NOTE | 2018-04-23 20:10 | NUR ---
RN CLOSING NOTES PT. IS IN BED A&OX1. BREATHING ON ROOM AIR, SLEEPING. IV FLUIDS RUNNING AT 75 ML/HR. BED IS IN LOWEST, AND LOCKED POSITION. 2 SIDE RAILS UP, AND CALL LIGHT WITHIN REACH. ALL NEEDS MET. WILL ENDORSE REPORT TO NURSE.
--- NOTE | 2018-04-23 22:15 | NUR ---
MS RN NOTE: PATIENT COMPLAINS OF BACK PAIN 11/21, NORCO 5/325MG 1 TAB ORAL GIVEN PER MD ORDER. WILL CONTINUE TO MONITOR.
[2018-04-24] MEDS: LEVOFLOXACIN 250 MG /D5W 50 ML 250 MG in PREMIX 1 EA IV SCH (00:34)
[2018-04-24] MEDS: HYDROCODONE/APAP 5/325MG 1 EACH TABLET PO PRN ×4 (02:09→16:37)
--- NOTE | 2018-04-24 02:15 | NUR ---
MS TONEY NOTE: PATIENT COMPLAINS OF BACK PAIN 11/21, NORCO 5/325MG 1 TAB ORAL GIVEN PER MD ORDER. WILL CONTINUE TO MONITOR. Addendum: 04/24/18 at 0305 by STEVEN PORTILLO RN PATIENT SPIT OUT MEDICATIONS.
[2018-04-24] MEDS: LORAZEPAM 0.5 MG TABLET PO PRN (02:50)
--- NOTE | 2018-04-24 03:05 | NUR ---
MS RN NOTE: PATIENT CONTINUES TO CRY AND IN AGITATED. ATIVAN 0.5MG 1 TAB ORAL GIVEN PER MD ORDER. SPOKE TO WILDERNESS GUIDE DOMINIQUE GARZA, HUMAN RESOURCES EXECUTIVE REGARDING POSSIBLE IV PAIN MEDICATIONS SINCE PATIENT SPIT OUT MEDICATIONS. REQUESTED THAT PATIENT TO BE SEEN BY PAIN MANAGEMENT. ORDER NOTED AND CARRIED OUT. TO ENDORSE TO DAY TO FOLLOW UP FOR PAIN MANAGEMENT CONSULT. WILL CONTINUE TO MONITOR.
--- NOTE | 2018-04-24 06:05 | NUR ---
MS RN NOTE: PATIENT RESTING IN BED, NO ACUTE DISTRESS NOTED. BREATHING EVEN AND UNLABORED, NO SOB NOTED. IV TO RAC IN PLACE, INFUSING NS AT 75 ML/HR. PATIENT CONTINUES TO BE ANXIOUS AND CRYING DUE TO PAIN, TO BE SEEN BY PAIN MANAGEMENT. BED LOCKED AND IN LOWEST POSITION, CALL LIGHT IN REACH. WILL ENDORSE TO DAY NURSE TO CONTINUE WITH PLAN OF CARE.
[2018-04-24 06:06] LABS: BASOPHILS % (AUTO) 0.1 % (0.0-2.0); HEMATOCRIT 34 % (33-45); HEMOGLOBIN 11.4 g/dL (11.5-14.8); LYMPHOCYTES # (AUTO) 1.4 /CMM (0.8-4.8); LYMPHOCYTES % (AUTO) 15.4 % (20.0-44.0); MEAN CORPUSCULAR HGB CONC 33 g/dl (31.0-36.0); MEAN CORPUSCULAR VOLUME 94 fL (82-100); MONOCYTES # (AUTO) 0.8 /CMM (0.1-1.30); MONOCYTES % (AUTO) 8.7 % (2.0-12.0); NEUTROPHILS # (AUTO) 6.8 /CMM (1.8-8.9); NEUTROPHILS % (AUTO) 75.8 % (43.0-81.0); PLATELET COUNT (AUTO) 456 /CMM (150-450); RED BLOOD CELL COUNT(AUTO) 3.67 MIL/uL (4.0-5.2)
[2018-04-24 06:18] LABS: CALCIUM, SERUM 7.9 mg/dL (8.5-10.1); CREATININE 0.6 mg/dL (0.6-1.3); MAGNESIUM 1.4 mg/dL (1.8-2.4); PHOSPHORUS 2.1 mg/dL (2.5-4.9)
[2018-04-24 06:21] LABS: POTASSIUM 2.2 mmol/L (3.5-5.1)
--- NOTE | 2018-04-24 06:45 | NUR ---
MS RN NOTE: RECEIVED CALL FROM LAB, PATIENT POTASSIUM LEVEL 2.2, WILL TRY TO GET A HOLD OF PRODUCTION SUPPORT CONSULTANT MD AND WILL ENDORSE TO DAY NURSE FOLLOW UP WITH MD. PATIENT CONTINUES TO CRY IN PAIN, NORCO 5/325MG 1 TAB GIVEN CRUSHED IN PUDDING, PATIENT ABLE TO TAKE MEDICATIONS. WILL ENDORSE TO DAY NURSE TO CONTINUE WITH CARE.
[2018-04-24] MEDS ORDERED: Magnesium 1GM/D5W 100ML PREMIX PIGGYBACK IV ONE (07:00)
[2018-04-24] MEDS ORDERED: POTASSIUM CHLORIDE 10 MEQ/50 ML PREMIXED IVPB FOR PERIPHERAL LINE IV ONE (07:00)
--- NOTE | 2018-04-24 07:15 | NUR ---
MS RN NOTE: RECEIVED CALL BACK FROM ROSEMARIE FOX WITH NEW ORDERS TO REPLACE POTASSIUM. POTASSIUM 60MEQ IV TO BE GIVEN OVER 6 HOURS AND ALSO TO REPLACE MAGNESIUM WITH 1 GRAM IV. ORDER NOTED AND CARRIED OUT. WILL ENDORSE TO DAY NURSE.
--- NOTE | 2018-04-24 07:30 | NUR ---
RECEIVED PT.CONFUSED AND YELLING OUT CONT.IV INFUSING.REASSURED FREQ.OCCASIONALLY PT. STOPPED YELLING THEN STARTED UP AGAIN.
[2018-04-24 08:00] VITALS: BP 161/88
[2018-04-24] MEDS ORDERED: Magnesium 1GM/D5W 100ML PREMIX 100 ML IV SCH (08:00)
[2018-04-24] MEDS: Magnesium 1GM/D5W 100ML PREMIX 100 ML IV SCH ×2 (08:11→09:32)
--- NOTE | 2018-04-24 09:00 | NUR ---
new iv start lt. forearm @22 angio.
[2018-04-24] MEDS: CALCIUM CARBONATE 500 MG TAB.CHEW PO SCH (09:10)
[2018-04-24] MEDS: PANTOPRAZOLE 40 MG TABLET.DR PO SCH (09:10)
[2018-04-24] MEDS: POTASSIUM CL. PREMIX PERIPHER. 50 ML IV SCH ×6 (09:49→17:31)
--- NOTE | 2018-04-24 10:30 | NUR ---
abg's done and reviewed due to pt's anxiousness.
[2018-04-24] MEDS: Potassium Phosphate meq 11 MEQ in IV D5W 100 ML IV SCH ×2 (10:39→13:10)
[2018-04-24 10:56] LABS: ABG BASE EXCESS 0.1 mmol/L; ABG OXYGEN SATURATION 97.5 % (92.0-98.5); ABG PCO2 16.3 mmHg (35.0-45.0); ABG PH 7.666 (7.350-7.450); ABG PO2 95.1 mmHg (75.0-100.0); AaDO2 35.1 mmHg; COHb 0.3 % (0.5-1.5); MetHb 0.8 % (0.0-1.5); O2Hb 96.4 % (94.0-97.0); SITE, ABG Left Radial; VENT MODE, BG ROOM AIR
--- NOTE | 2018-04-24 15:00 | NUR ---
PAIN MGMT. AND PSYCH CONSULT ORDERED.
[2018-04-24 16:00] VITALS: BP 160/80
[2018-04-24] MEDS: ENSURE ENLIVE CHOC 237 ML CAN PO SCH (17:34)
--- NOTE | 2018-04-24 18:30 | NUR ---
MEDICATED X 2 FOR BACK PAIN WITH NORCO.
--- NOTE | 2018-04-24 19:35 | NUR ---
RN OPENING NOTES RECEIVED REPORT FROM PRINCESSORTHOMAS CARD. FOUND Pt AWAKE IN BED. Pt IS A/OX2. NO S/S OF ACUTE DISTRESS OR SEVERE SOB NOTED. IV ACCESS ON RAC #20G, IVF NS @75ML/HR. IV ACCESS ALSO ON L WRIST #22G, SL. SAFETY MEASURES IN PLACE. BED LOW, LOCKED, HOB ELEVATED, SIDE RAILS UP, CALL LIGHT AND BEDSIDE TABLE WITHIN REACH. WILL CONTINUE TO MONITOR Pt's CONDITION AND SAFETY THROUGHOUT THE NIGHT.
--- NOTE | 2018-04-24 19:45 | NUR ---
1730 POTASSIUM,PHOSPHOROUS,MG REPLACEMENT IV.
[2018-04-24 20:00] VITALS: BP 152/94
--- NOTE | 2018-04-24 20:56 | NUR ---
RN NOTES SPOKE WITH REFRIGERATOR MOVER TEJAL Solano ON THE PHONE TO INFORM HER OF Pt SCREAMING OUT CRYING, VERY AGITATED AND BEING UNCOOPERATIVE. Pt HAS TENDENCY TO SPIT OUT PO MEDS. RECEIVED PHONE ORDER FOR ATIVAN 0.5MG IVP X1 DOSE. WILL CARRYOUT ORDER.
[2018-04-24] MEDS: HYDROCODONE/APAP 10/325MG 1 EA TABLET PO PRN (22:21)
[2018-04-25] MEDS ORDERED: LORAZEPAM INJ 2 MG/ML VIAL IV ONE
[2018-04-25] MEDS: LEVOFLOXACIN 250 MG /D5W 50 ML 250 MG in PREMIX 1 EA IV SCH (01:40)
--- NOTE | 2018-04-25 07:15 | NUR ---
RN CLOSING NOTES NO SIGNIFICANT CHANGES IN Pt's CONDITION. Pt REMAINS STABLE PER BASELINE. ALL NEEDS MET AND ATTENDED TO. SAFETY MEASURES IN PLACE. WILL ENDORSE TO DAYSHIFT RN FOR Pt's ELLIS.
[2018-04-25 08:00] VITALS: BP 161/77
[2018-04-25] MEDS: IV NS 0.9% 1,000 ML IV PRN (08:05)
[2018-04-25] MEDS: ENSURE ENLIVE CHOC 237 ML CAN PO SCH ×3 (09:12→17:52)
[2018-04-25] MEDS: CALCIUM CARBONATE 500 MG TAB.CHEW PO SCH (09:13)
[2018-04-25] MEDS: PANTOPRAZOLE 40 MG TABLET.DR PO SCH (09:13)
[2018-04-25 09:52] LABS: CALCIUM, SERUM 8.2 mg/dL (8.5-10.1); CREATININE 0.5 mg/dL (0.6-1.3); MAGNESIUM 2.1 mg/dL (1.8-2.4); PHOSPHORUS 2.1 mg/dL (2.5-4.9); POTASSIUM 3.3 mmol/L (3.5-5.1)
[2018-04-25 10:01] LABS: BASOPHILS % (AUTO) 0.1 % (0.0-2.0); EOSINOPHILS % (AUTO) 0.3 % (0.0-6.0); HEMATOCRIT 36 % (33-45); HEMOGLOBIN 11.9 g/dL (11.5-14.8); LYMPHOCYTES # (AUTO) 1.6 /CMM (0.8-4.8); LYMPHOCYTES % (AUTO) 20.9 % (20.0-44.0); MEAN CORPUSCULAR HGB CONC 33 g/dl (31.0-36.0); MEAN CORPUSCULAR VOLUME 94 fL (82-100); MONOCYTES # (AUTO) 0.7 /CMM (0.1-1.30); MONOCYTES % (AUTO) 9.8 % (2.0-12.0); NEUTROPHILS # (AUTO) 5.3 /CMM (1.8-8.9); NEUTROPHILS % (AUTO) 68.9 % (43.0-81.0); PLATELET COUNT (AUTO) 474 /CMM (150-450); RED BLOOD CELL COUNT(AUTO) 3.82 MIL/uL (4.0-5.2); WHITE BLOOD COUNT (AUTO) 7.7 K/uL (4.3-11.0)
[2018-04-25] MEDS: HYDROCODONE/APAP 5/325MG 1 EACH TABLET PO PRN (10:40)
[2018-04-25] MEDS: Potassium Phosphate meq 11 MEQ in IV D5W 100 ML IV SCH ×2 (11:00→15:37)
[2018-04-25] MEDS ORDERED: K PHOS NEUTRAL 250 MG TABLET PO ONE (11:00)
[2018-04-25] MEDS: LORAZEPAM 0.5 MG TABLET PO PRN (12:07)
--- NOTE | 2018-04-25 12:31 | NUR ---
UNABLE TO DO MRI, PATIENT IN POSITION /CHEWING MOTION.HNOG/THOMAS IS AWARE.
--- NOTE | 2018-04-25 13:00 | NUR ---
[facility] floor called and rn spoke with raya trade union secretary-informed of need and order for psych eval on pt.yelling out continually.
--- NOTE | 2018-04-25 13:00 | NUR ---
medicated thus far with norco 5mg and ativan 0.5 mg po.still remains very agitated.
--- NOTE | 2018-04-25 15:15 | NUR ---
PT. MANAGED TO PULL OUT BOTH IVS SO AFTER SEVERAL ATTEMPTS NEW ANGIO PLACED LT. HAND #[id number].RT. AC IV HAD INFILTRATED.
[2018-04-25 16:00] VITALS: BP 156/94
--- NOTE | 2018-04-25 16:00 | NUR ---
PHOTOS TAKEN OF SMALL SKIN TEAR ON EACH ARM SUSTAINED FROM PT. PULLING OUT IVS.
--- NOTE | 2018-04-25 16:30 | NUR ---
PT. MD OFFICE FOR SUBSTANCE ABUSE CALLING IN TO CHECK ON PT. STATUS.NAME OF MD DR. CALLE.MED MALT SPECIFICATIONS CONTROL ASSISTANT'S NAME JONATHAN.PHONE NO.[phone].
--- NOTE | 2018-04-25 18:00 | NUR ---
DR. SIMMONS AND DR. BAUTISTA IN TO SEE PT. ORDERS GIVEN. TIE FASTENER FOR DR. RIOS WELL IN TO SEE PT. SEVERAL TIMES PT. PLACED ON 02 2L WITH C/O SOB.PT. CONTINUALLY REMOVING O2 WELL CONTINUING TO YELL OUT FREQ.
--- NOTE | 2018-04-25 18:45 | NUR ---
NEUTRA PHOS AND POTASSIUM PHOSPHATE GIVEN FOR REPLACEMENT.
--- NOTE | 2018-04-25 19:25 | NUR ---
MS/RN OPENING NOTES PT RECEIVED SCREAMING AND CRYING. ON ROOM AIR, NO S/S OF SOB NOTED. IV TO LEFT HAND PATENT AND INTACT RUNNING IVF ORDERED. HOB ELEVATED. SIDE RAILS UP X3 AND BED ALARM ON FOR SAFETY. BED IN LOW/LOCKED POSITION WITH CALL LIGHT IN REACH. WILL CONTINUE TO MONITOR
[2018-04-25 20:00] VITALS: BP 153/68
[2018-04-25] MEDS: HYDROCODONE/APAP 10/325MG 1 EA TABLET PO PRN (20:42)
--- NOTE | 2018-04-25 20:42 | NUR ---
MS/RN NOTES PT SCREAMING AND CRYING. STATES SHE IS HAVING PAIN TO HER BACK 01/22. PAIN MEDS OFFERED AND ADMINISTERED PRN NORCO ORDERED.
[2018-04-26] MEDS: IV NS 0.9% 1,000 ML IV PRN ×2 (01:01→16:00)
[2018-04-26] MEDS: LEVOFLOXACIN 250 MG /D5W 50 ML 250 MG in PREMIX 1 EA IV SCH (01:01)
[2018-04-26] MEDS: QUETIAPINE FUMARATE 25 MG TABLET PO PRN ×3 (02:53→21:41)
--- NOTE | 2018-04-26 02:58 | NUR ---
MS/RN NOTES PT AGITATED AND SCREAMING. ADMINISTERED PRN SEROQUEL ORDERED.
--- NOTE | 2018-04-26 06:25 | NUR ---
MS/RN CLOSING NOTES PT WITH EYES CLOSED. ON ROOM AIR, BREATHING EVEN AND UNLABORED. NO S/S OF DISTRESS OR PAIN. PRN SEROQUEL EFFECTIVE. PT IS CALM AND QUIET AT THIS TIME. IV TO LEFT HAND PATENT AND INTACT RUNNING IVF ORDERED. TURNED/REPOSITIONED Q2H AND HEELS OFFLOADED. NO SIGNIFICANT CHANGES OVERNIGHT. ALL NEEDS MET. BED REMAINS IN LOW/LOCKED POSITION WITH CALL LIGHT IN REACH AND SIDE RAILS UPX3. BED ALARM ON FOR SAFETY. WILL ENDORSE TO DAY SHIFT RN ELLIS.
[2018-04-26] MEDS: PANTOPRAZOLE 40 MG TABLET.DR PO SCH (07:30)
--- NOTE | 2018-04-26 07:36 | NUR ---
MS RN OPENING NOTE RECEIVED PT IN BED, SLEEPING AND EASILY AROUSABLE. PT ALERT TO SELF ONLY. BREATHING IS EVEN AND UNLABORED ON ROOM AIR, NO ACUTE DISTRESS NOTED AT THIS TIME. L HAND #24G IV IS INFUSING NS @ 75ML/HR WITHOUT REDNESS OR SWELLING. ALL NEEDS ATTENDED TO. BED IS LOCKED AND IN LOWEST POSITION, SIDE RAILS UP X3, BED ALARM ON, CALL LIGHT WITHIN REACH.
[2018-04-26 08:00] VITALS: BP 186/97
[2018-04-26 08:49] LABS: BASOPHILS % (AUTO) 0.1 % (0.0-2.0); EOSINOPHILS % (AUTO) 0.4 % (0.0-6.0); HEMATOCRIT 36 % (33-45); LYMPHOCYTES % (AUTO) 23.4 % (20.0-44.0); MEAN CORPUSCULAR HGB CONC 33 g/dl (31.0-36.0); MEAN CORPUSCULAR VOLUME 94 fL (82-100); MONOCYTES # (AUTO) 0.8 /CMM (0.1-1.30); MONOCYTES % (AUTO) 8.8 % (2.0-12.0); NEUTROPHILS # (AUTO) 5.8 /CMM (1.8-8.9); NEUTROPHILS % (AUTO) 67.3 % (43.0-81.0); PLATELET COUNT (AUTO) 515 /CMM (150-450); RED BLOOD CELL COUNT(AUTO) 3.85 MIL/uL (4.0-5.2); WHITE BLOOD COUNT (AUTO) 8.7 K/uL (4.3-11.0)
[2018-04-26 08:55] LABS: CALCIUM, SERUM 8.2 mg/dL (8.5-10.1); CREATININE 0.4 mg/dL (0.6-1.3); MAGNESIUM 1.8 mg/dL (1.8-2.4); PHOSPHORUS 1.8 mg/dL (2.5-4.9); POTASSIUM 2.9 mmol/L (3.5-5.1)
[2018-04-26] MEDS: ENSURE ENLIVE CHOC 237 ML CAN PO SCH ×3 (09:01→17:00)
[2018-04-26] MEDS: HYDROCODONE/APAP 5/325MG 1 EACH TABLET PO PRN (09:01)
[2018-04-26] MEDS: CALCIUM CARBONATE 500 MG TAB.CHEW PO SCH (09:01)
[2018-04-26] MEDS: Potassium Phosphate meq 11 MEQ in IV D5W 100 ML IV SCH ×2 (10:46→13:18)
--- NOTE | 2018-04-26 10:51 | NUR ---
MS RN NOTE PT C/O OF "REALLY BAD" LOWER BACK PAIN THAT IS RESOLVED SOMEWHAT WITH REPOSITIONING AND PLACING A PILLOW BEHIND BACK. NORCO 5-325MG ADMINISTERED AT 0901, HOWEVER CURRENT BP STILL ELEVATED AT 165/92, HR:70, SPO2 95% AND PT REQUESTING PAIN MEDICATION. WILL ADMINISTER NORCO 10-325 ORDERED FOR SEVERE PAIN.
[2018-04-26] MEDS: HYDROCODONE/APAP 10/325MG 1 EA TABLET PO PRN (10:54)
--- NOTE | 2018-04-26 13:24 | NUR ---
MS RN NOTE SPOKE WITH LOYDA (CAREGIVER) REGARDING IF PT HAS ANY FAMILY WHO WOULD BE ABLE TO GIVE CONSENT FOR THE MRI W/ CONTRAST. PER LOYDA THE PT HAS A BROTHER NAMED DEBORAH TIMMONS WITH PHONE NUMBER [phone]. THE NURSE WILL INFORM CASE MANAGEMENT AND REACH OUT TO THE BROTHER.
--- NOTE | 2018-04-26 14:00 | NUR ---
MS FENG PEREZ CONTACTED NURSING COOK [facility] REGARDING MIDLINE PLACEMENT, AWAITING RESPONSE.
--- NOTE | 2018-04-26 14:00 | NUR ---
MS RN NOTE CONTACTED DEBORAH TIMMONS (BROTHER) TO OBTAIN TELEPHONE CONSENT FOR MRI WITH AND WITHOUT CONTRAST. LEFT VOICEMAIL AND WILL ATTEMPT ANOTHER CALL LATER ON.
--- NOTE | 2018-04-26 15:21 | NUR ---
MS RN CONSENT NOTE BROTHER DEBORAH TIMMONS IS CURRENTLY IN THE HOSPITAL AND UNABLE TO GIVE CONSENT. HOWEVER BROTHER IS AWARE OF SITUATION AND ALLOWING HIS (PAT TIMMONS) AND STEP SISTER OF PT TO PROVIDE TELEPHONE CONSENT WITH 2 RN VERIFICATION FOR MRI OF THE BRAIN WITH AND WITHOUT CONTRAST. CONSENT OBTAINED AND PLACED IN CHART. AWAITING PLACEMENT OF MIDLINE FOR IV CONTRAST.
[2018-04-26 16:00] VITALS: BP 187/94
--- NOTE | 2018-04-26 16:00 | NUR ---
MS FENG PEREZ CONTACTED NURSING MANDATE RETAIL SERVICE MERCHANDISER REGARDING MIDLINE PLACEMENT, AWAITING RESPONSE.
--- NOTE | 2018-04-26 17:09 | NUR ---
MS RN CHRIS GOT A HOLD OF NURSING TABLEAU ADMINISTRATOR REGARDING MIDLINE PLACEMENT, CONFIRMED WITH MELI THAT SHE WILL CONTACT TEAM. ORDERS PLACED ALREADY.
--- NOTE | 2018-04-26 17:25 | NUR ---
MS RN IV ACCESS MELI, NURSING RIP SAW OPERATOR SENT NURSE FROM THE ER TO ATTEMPT PERIPHERAL IV ACCESS. NURSE WAS UNSUCCESSFUL AFTER 3 ATTEMPT. MELI NURSING RIP SAW OPERATOR NOTIFIED AND WILL CONTINUE PURSUING MIDLINE PLACEMENT.
--- NOTE | 2018-04-26 18:43 | NUR ---
MS RN CLOSING NOTE PT IN BED, SLEEPING AND EASILY AROUSABLE. PT ALERT TO SELF ONLY. BREATHING IS EVEN AND UNLABORED ON ROOM AIR, NO ACUTE DISTRESS NOTED AT THIS TIME. L HAND #24G IV IS INFUSING NS @ 75ML/HR WITHOUT REDNESS OR SWELLING. ALL NEEDS ATTENDED TO. BED IS LOCKED AND IN LOWEST POSITION, SIDE RAILS UP X3, BED ALARM ON, CALL LIGHT WITHIN REACH. WILL ENDORSE TO PUFF IRONER RN FOR CONTINUITY OF CARE.
[2018-04-26 20:00] VITALS: BP 164/95
[2018-04-26] MEDS: ACETAMINOPHEN 325 MG TABLET PO PRN (20:21)
[2018-04-26 20:28] VITALS: BP 164/95
--- NOTE | 2018-04-26 20:50 | NUR ---
OPENS EYES WHEN NAME SPOKEN. ANSWERS SIMPLE QUESTION CORRECTLY. SMILES. JUICE OFFERED SWALLOWED W/O PROBLEMS. PIC LINE NURSE AT THE BEDSIDE HERE TO INSERT THE ORDERED PICL;INE RIGHT UPPER ARM.
[2018-04-26] MEDS ORDERED: LEVOFLOXACIN (250MG) 250 MG TABLET PO SCH (21:00)
--- NOTE | 2018-04-27 00:45 | NUR ---
ENDING NOTES: IN BED NOTED CHGS HER OWN POSITION. PT AWAKENS EASILY WHEN NAME SPOKEN, ANSWERS SIMPLE QUESTION APPRIOP. NO SCREAMING AND YELLING OUT THIS SHIFT FAR. TAKES FLUID WHEN OFFERED.
--- NOTE | 2018-04-27 01:01 | NUR ---
MS/RN ASSUMED CARE FOR CONTINUITY OF CARE. PATIENT IS AWAKE, CONFUSED, APPEAR COMFORTABLE, NO DISTRESS NOTED, CALL LIGHT IN REACH. FALL PRECAUTION. WILL MONITOR.
--- NOTE | 2018-04-27 01:45 | NUR ---
MS/RN FOUND MIDLINE CATHETER ON THE SIDE TABLE. MIDLINE WAS PULLED OUT.
--- NOTE | 2018-04-27 03:52 | NUR ---
MS/RN PATIENT IS SLEEPING AT THIS TIME, APPEAR COMFORTABLE, BREATHING EVEN AND UNLABORED, CALL LIGHT IN REACH. WILL CONTINUE TO MONITOR.
[2018-04-27] MEDS: IV NS 0.9% 1,000 ML IV PRN (04:51)
--- NOTE | 2018-04-27 04:55 | NUR ---
MS/RN PATIENT IS AWAKE, IV AT LEFT ARM G20 WAS SUCCESSFULLY INSERTED.
--- NOTE | 2018-04-27 06:17 | NUR ---
MS/RN PATIENT IS AWAKE, COMFORTABLE, NO CHANGE IN CONDITION, ALL NEEDS ATTENDED AT THIS TIME. WILL CONTINUE TO MONITOR.
--- NOTE | 2018-04-27 07:24 | NUR ---
MS RN OPENING NOTE RECEIVED PT IN BED, ALERT TO SELF. NO S/S OF ACUTE DISTRESS NOTED AT THIS TIME. BREATHING IS EVEN AND UNLABORED ON ROOM AIR. LEFT HAND #24G IV INFUSING ORDERED WITHOUT REDNESS OR SWELLING. R FA #20G IV IS PATENT, CLEAN, DRY, AND INTACT. ALL NEEDS ATTENDED TO. BED IS LOCKED AND IN LOWEST POSITION, SIDE RAILS UP X3, BED ALARM ON, CALL LIGHT WITHIN REACH.
[2018-04-27 07:52] LABS: BASOPHILS % (AUTO) 0.6 % (0.0-2.0); EOSINOPHILS % (AUTO) 0.7 % (0.0-6.0); HEMATOCRIT 35 % (33-45); HEMOGLOBIN 11.6 g/dL (11.5-14.8); LYMPHOCYTES # (AUTO) 2.3 /CMM (0.8-4.8); LYMPHOCYTES % (AUTO) 30.8 % (20.0-44.0); MEAN CORPUSCULAR HGB CONC 33 g/dl (31.0-36.0); MEAN CORPUSCULAR VOLUME 94 fL (82-100); MONOCYTES # (AUTO) 0.5 /CMM (0.1-1.30); MONOCYTES % (AUTO) 6.5 % (2.0-12.0); NEUTROPHILS # (AUTO) 4.6 /CMM (1.8-8.9); NEUTROPHILS % (AUTO) 61.4 % (43.0-81.0); PLATELET COUNT (AUTO) 519 /CMM (150-450); RED BLOOD CELL COUNT(AUTO) 3.78 MIL/uL (4.0-5.2); WHITE BLOOD COUNT (AUTO) 7.5 K/uL (4.3-11.0)
[2018-04-27 07:58] LABS: CALCIUM, SERUM 8.3 mg/dL (8.5-10.1); CREATININE 0.4 mg/dL (0.6-1.3); MAGNESIUM 1.7 mg/dL (1.8-2.4); PHOSPHORUS 2.3 mg/dL (2.5-4.9); POTASSIUM 3.1 mmol/L (3.5-5.1)
[2018-04-27 08:00] VITALS: BP 153/97
[2018-04-27] MEDS ORDERED: CLONIDINE HCL 0.1 MG TABLET PO PRN (08:00)
[2018-04-27] MEDS: ENSURE ENLIVE CHOC 237 ML CAN PO SCH (08:15)
[2018-04-27] MEDS: PANTOPRAZOLE 40 MG TABLET.DR PO SCH (08:15)
[2018-04-27] MEDS: CALCIUM CARBONATE 500 MG TAB.CHEW PO SCH (08:15)
--- NOTE | 2018-04-27 08:24 | NUR ---
MS RN AMLODIPINE ADDITIONAL AMLODIPINE 5MG PULLED FROM PYXIS BECAUSE FIRST ONE DROPPED ON THE FLOOR. ONLY 5MG AMLODIPINE ADMINISTERED ORDERED.
[2018-04-27] MEDS: LORAZEPAM 0.5 MG TABLET PO PRN (08:38)
--- NOTE | 2018-04-27 08:52 | NUR ---
MS RN PT OFF UNIT PT OFF UNIT FOR MRI OF THE BRAIN. CONSENT SIGNED, CHECK LIST COMPLETED BY JAVA WEB USER INTERFACE DEVELOPER RN.
[2018-04-27] MEDS ORDERED: AMLODIPINE BESYLATE 5 MG TABLET PO SCH (09:00)
--- NOTE | 2018-04-27 09:50 | NUR ---
MS RN PT BACK ON UNIT PT BACK ON UNIT FROM MRI. NO S/S OF ACUTE DISTRESS, BED IS LOCKED AND IN LOWEST POSITION, SIDE RAILS UP X3, BED ALARM ON, CALL LIGHT WITHIN REACH.
[2018-04-27] MEDS ORDERED: POTASSIUM CHLORIDE 20 MEQ TAB.PRT.SR PO SCH (10:00)
[2018-04-27] MEDS: Magnesium 1GM/D5W 100ML PREMIX 100 ML IV SCH ×2 (10:02→11:16)
--- NOTE | 2018-04-27 10:19 | NUR ---
MS RN IV LEFT HAND IV FOUND TO BE LEAKING AND PAINFUL WHEN FLUSHED. REMOVED WITH CATHETER TIP INTACT. R FA #20G IV IS PATENT, CLEAN, DRY AND INTACT. RESTARTED FLUIDS AND ADMINISTERED MAGNESIUM ORDERED.
[2018-04-27] MEDS ORDERED: Magnesium 1GM/D5W 100ML PREMIX 100 ML IV SCH (10:30)
--- NOTE | 2018-04-27 11:17 | NUR ---
MS RN POTASSIUM CHLORIDE PT UNABLE TO TOLERATE SWALLOWING WHOLE PILLS, POTASSIUM PO IS NOT ABLE TO BE CRUSHED. INFORMED FILIBERTO IN PHARMACY, SWITCHED TO POTASSIUM CHLORIDE PO 20 MEW POWDER PACKET AND ADMINISTERED ORDERED.
[2018-04-27] MEDS ORDERED: POTASSIUM CHLORIDE 20 MEQ POWDER PACKET PO SCH (11:30)
--- NOTE | 2018-04-27 11:31 | NUR ---
MS FENG POTASSIUM PHOSPHATE CONTACTED PHARMACY AND ASKED TO SEND POTASSIUM PHOSPHATE. WAITING DELIVERY.
[2018-04-27] MEDS ORDERED: GADOVERSETAMIDE 5 MMOL/10 ML VIAL IJ ONE (11:43)
--- NOTE | 2018-04-27 12:00 | NUR ---
MS RN VIRA PHOSPHATE SPOKE WITH PHARMACY AGAIN REGARDING STATUS OF MEDICATION, PER PHARMACY MEDICATION IS STILL BEING MADE AND WILL BE SENT UP SHORTLY.
[2018-04-27 12:09] LABS: VITAMIN B1 THIAMINE,WB 97.3 nmol/L (66.5-200.0)
[2018-04-27] MEDS: Potassium Phosphate meq 11 MEQ in IV D5W 100 ML IV SCH ×2 (12:42→15:44)
[2018-04-27] MEDS: ENSURE ENLIVE 237 ML LIQUID (VANILLA) PO SCH ×2 (12:42→17:00)
--- NOTE | 2018-04-27 15:42 | NUR ---
MS RN NOTE SPOKE WITH DR. RIOS WHO CLEARED PT FOR D/C FROM NEURO. WILL INFORM HOSPITALIST DR. VASQUEZ.
--- NOTE | 2018-04-27 15:45 | NUR ---
MS RN NOTE INFORMED DR. VASQUEZ OF PT CLEARED BY NEURO. PER DR. VASQUEZ HE WILL REVIEW PT AND INFORM NURSING STAFF IT PT IS CLEARED FOR D/C.
[2018-04-27 16:30] VITALS: BP 168/89
[2018-04-27 16:38] VITALS: BP 168/73
--- NOTE | 2018-04-27 17:00 | NUR ---
MS CHIEF OF HARBOR PATROL REPORT ATTEMPT 1 CALLED [facility] AT [phone] AND WAS SENT TO VOICEMAIL BOX THAT IS FULL. WILL ATTEMPT TO CALL AND GIVE REPORT AGAIN.
--- NOTE | 2018-04-27 17:05 | NUR ---
MS MANAGER FRONT REPORT ATTEMPT 2 CALLED AGAIN TO [facility] TO GIVE REPORT REGARDING PT DISCHARGE, SENT TO VOICEMAIL BOX THAT IS FULL.
--- NOTE | 2018-04-27 17:15 | NUR ---
MS DYNAMIC BALANCER SPOKE WITH ELIEL PAGE IN CASE MANAGEMENT AND CONFIRMED THAT WIN NUMBER IS [phone]. PER ELIEL PAGE SHE WILL CALL [facility] TO ALERT STAFF TO PT DISCHARGE AND TRANSFER OF CARE.
--- NOTE | 2018-04-27 17:20 | NUR ---
MS MISSING PERSONS INVESTIGATOR REPORT ATTEMPT 3 CALLED [facility] AT [phone] TO GIVE REPORT, SENT AGAIN TO [facility]IC[facility] BOX THAT IS FULL. ATTEMPTED TO USE HOME MISSION WORKER NUMBER, SENT AGAIN TO [employer] BOX THAT IS FULL. CHARGE NURSE SANDRA AND AMBULANCE STAFF AWARE.
--- NOTE | 2018-04-27 17:30 | NUR ---
MS RN PATIENT DISCHARGED PT DISCHARGED TO [facility] IN MEDICALLY STABLE CONDITION. PT MENTAL STATUS AT BASELINE, DENIES CHEST PAIN AND SOB. BREATHING IS EVEN AND UNLABORED ON 2L NC. R FA IV REMOVED WITH CATHETER TIP INTACT. WOUND DOCUMENTATION COMPLETE. EDUCATION AND DISCHARGE PAPERWORK PROVIDED PER PROTOCOL. REPORT GIVEN TO AMBULANCE STAFF FOR TRANSFER OF CARE. ALL BELONGINGS ACCOUNTED FOR AND BELONGINGS LIST SIGNED AND PLACED IN CHART. CAREGIVER LOYDA INFORMED OF DISCHARGE AND PLACEMENT.
[2018-05-04 06:08] LABS: VITAMIN B6 <1.0 ug/L (2.0-32.8)
== END 2018-04-27 17:37 | DRG 689 ==
LOC: ER 22:17 → MED 04-23 00:19
PROVIDERS: ADMIT Internal Medicine; ATTEND Internal Medicine
PROC: 05H533Z Insertion of Infusion Device into Right Subclavian Vein, Percutaneous Approach (ICD-10-PCS; principal; 2018-04-26)
PROC: B546ZZA Ultrasonography of Right Subclavian Vein, Guidance (ICD-10-PCS; 2018-04-26)
DX: N39.0 Urinary tract infection, site not specified (principal); G92 Toxic encephalopathy; E43 Unspecified severe protein-calorie malnutrition; I10 Essential (primary) hypertension; F12.90 Cannabis use, unspecified, uncomplicated; M79.7 Fibromyalgia; Z96.641 Presence of right artificial hip joint; Z98.84 Bariatric surgery status; Z82.49 Family history of ischemic heart disease and other diseases of the circulatory system; Z88.3 Allergy status to other anti-infective agents; Z88.0 Allergy status to penicillin; Z88.2 Allergy status to sulfonamides; Z88.7 Allergy status to serum and vaccine; G89.4 Chronic pain syndrome; Z79.899 Other long term (current) drug therapy; E83.42 Hypomagnesemia; E87.6 Hypokalemia; E83.39 Other disorders of phosphorus metabolism; F29 Unspecified psychosis not due to a substance or known physiological condition; J44.9 Chronic obstructive pulmonary disease, unspecified; M48.00 Spinal stenosis, site unspecified; F32.9 Major depressive disorder, single episode, unspecified; M19.90 Unspecified osteoarthritis, unspecified site; M81.0 Age-related osteoporosis without current pathological fracture; E78.5 Hyperlipidemia, unspecified; R82.4 Acetonuria
CPT/HCPCS: 36415; 36569; 36600; 70450-TC; 70553-TC; 71045-TC; 80048-TC; 80076-TC; 80305; 81000-TC; 82140-TC; 82803-TC; 83735-TC; 84100-TC; 84207; 84425; 84443-TC; 84484-TC; 85025-TC; 85730-TC; 87081-TC; 87086-TC; 95819-TC; A4216; A4606; A9579; G0378; G0480; J1956; J2060; J2405; J3475; J3480; J3490; J7030; J7060; Z7610

== ENCOUNTER 2018-12-29 18:43 | Emergency (ER) | payer MEDICARE, MEDICAID ==
[~2018-12-29] VITALS: Ht 152.4 cm; Wt 38.6 kg
--- NOTE | 2018-12-29 18:47 | NUR ---
TO ER BED 7 FOR L SIDED GENERALIZED PAIN S/P GLF AT HOME. "was coming out of BR this [id number] pain". HOOKED TO MONITOR, CHANGED TO GOWN, PROVIDED W WARM BLANKET, AWAITING MD VALLADARES.
--- NOTE | 2018-12-29 18:51 | NUR ---
DR LEWIS AT BEDSIDE
[2018-12-29] MEDS ORDERED: MORPHINE SULFATE INJ 2 MG/ML DISP.SYRIN ONE ×2 (19:00→20:12)
[2018-12-29] MEDS ORDERED: ONDANSETRON HCL/PF 4 MG/2 ML VIAL IV ONE (19:00)
[2018-12-29] MEDS ORDERED: MORPHINE SULFATE INJ 2 MG/ML DISP.SYRIN IV ONE ×2 (19:00→20:30)
[2018-12-29] MEDS ORDERED: ONDANSETRON HCL/PF 4 MG/2 ML VIAL ONE (19:00)
--- NOTE | 2018-12-29 19:01 | NUR ---
PATIENT WHEELED OUT VIA [facility] FOR CT SCAN AND XRAY
--- NOTE | 2018-12-29 19:40 | NUR ---
CALLED [facility], ETA [phone], TRIP # [id number]
--- NOTE | 2018-12-29 19:52 | NUR ---
TRIED TO CONTACT CAREGIVER LOYDA US [phone], NUMBER NOT IN USE, PT DOES NOT RECALL CURRENT NUMBER.
--- NOTE | 2018-12-29 20:40 | NUR ---
PLACE AMBULANZ ON WILL-CALL
--- NOTE | 2018-12-29 20:52 | NUR ---
Guillermo kelsey in ED - 12/29/18 at 2245 by ISABELA TRIED TO CONTACT CAREGIVER LOYDA US [phone], NUMBER NOT IN USE, PT DOES NOT RECALL CURRENT NUMBER.
--- NOTE | 2018-12-29 22:37 | NUR ---
PT IN BED ASLEEP, HOOKED TO MONITOR, EASILY AROUSED BY VOICE. WILL CONTINUE TO MONITYOR ACCORDINGLY.
--- NOTE | 2018-12-29 23:07 | NUR ---
CALLED [phone] SPOKE TO LOYDA, CAREGIVER WILL BE AT PT HOME TO RECEIVED PT WHEN TRANSFERRED VIA PRIVATE AMBULANCE.
--- NOTE | 2018-12-29 23:12 | NUR ---
CALLED FOR [facility] TRANSPORT ([facility] ETA 0115, TRIP #[id number]
--- NOTE | 2018-12-29 23:15 | NUR ---
CALLED [phone] SPOKE TO LOYDA CAREGIVER AWARE PT TRANSPORT ETA 0115.
--- NOTE | 2018-12-29 23:41 | NUR ---
PT IN BED ASLEEP, HOOKED TO MONITOR, EASILY AROUSED BY VOICE. WILL CONTINUE TO MONITOR ACCORDINGLY.
--- NOTE | 2018-12-30 00:56 | NUR ---
REPORT GIVEN TO EMT FROM [facility] 328, PT AWARE OF TRANSPORT BACK TO HOME, CAREGIVER LOYDA WAITING TO ACCEPT PT, IV REMOVED, IV CATHETER INTACT, PRESSURE GAUZE APPLIED. NO ACTIVE BLEEDING NOTED. PT VSS. PER SANDRA TOOK OVER CARE, PT PLACED IN [facility].
[2018-12-30 01:00] VITALS: BP 157/86
[2018-12-30] MEDS ORDERED: BUPR2TAB3 PO (13:26)
[2018-12-30] MEDS ORDERED: GABA-534 PO (13:26)
[2018-12-30] MEDS ORDERED: TRAM50TA2 PO (13:26)
[2018-12-30] MEDS ORDERED: BUSP10TA35 PO (13:26)
== END 2018-12-30 01:01 | disposition home or self-care (01) ==
LOC: ER 18:50
DX: S40.012A Contusion of left shoulder, initial encounter (principal); S09.8XXA Other specified injuries of head, initial encounter; G89.4 Chronic pain syndrome; M79.7 Fibromyalgia; F17.200 Nicotine dependence, unspecified, uncomplicated; Z98.890 Other specified postprocedural states; Z90.89 Acquired absence of other organs; Z88.0 Allergy status to penicillin; Z88.2 Allergy status to sulfonamides; Z88.1 Allergy status to other antibiotic agents; Z60.2 Problems related to living alone; Z79.899 Other long term (current) drug therapy; W01.0XXA Fall on same level from slipping, tripping and stumbling without subsequent striking against object, initial encounter; Y93.89 Activity, other specified; Y92.89 Other specified places as the place of occurrence of the external cause; Y99.8 Other external cause status
CPT/HCPCS: 70450; 73030; 73060; 96374; 96375; 96376; 99284; 99406; J2270 ×2; J2405

== ENCOUNTER 2018-12-30 12:39 | Inpatient (IN) | payer MEDICARE, MEDICAID ==
[~2018-12-30] VITALS: Ht 152.4 cm; Wt 39.5 kg
[2018-12-30] MEDS ORDERED: MORPHINE SULFATE INJ 4 MG/ML DISP.SYRIN ONE (13:11)
[2018-12-30] MEDS ORDERED: ONDANSETRON HCL/PF 4 MG/2 ML VIAL ONE (13:11)
[2018-12-30] MEDS ORDERED: BUPR2TAB3 PO (13:26)
[2018-12-30] MEDS ORDERED: TRAM50TA2 PO (13:26)
[2018-12-30] MEDS ORDERED: BUSP10TA35 PO (13:26)
[2018-12-30] MEDS ORDERED: GABA-534 PO (13:26)
--- NOTE | 2018-12-30 13:28 | NUR ---
[facility] PAGED
[2018-12-30] MEDS ORDERED: MORPHINE SULFATE INJ 2 MG/ML DISP.SYRIN IV ONE (13:30)
[2018-12-30] MEDS ORDERED: IV NS 0.9% 1,000 ML BAG IV ONE (13:30)
[2018-12-30] MEDS ORDERED: ONDANSETRON HCL/PF 4 MG/2 ML VIAL IVP ONE (13:30)
[2018-12-30 13:39] LABS: ALANINE AMINOTRANSFERASE 17 U/L (12-78); ALBUMIN 2.5 g/dL (3.4-5.0); ALKALINE PHOSPHATASE 119 U/L (46-116); ASPARTATE AMINOTRANSFERASE 18 U/L (15-37); BILIRUBIN,DIRECT 0.1 mg/dL (0.0-0.2); BILIRUBIN,TOTAL 0.4 mg/dL (0.2-1.0); CALCIUM, SERUM 8.9 mg/dL (8.5-10.1); CARBON DIOXIDE 29 mmol/L (21-32); CHLORIDE 105 mmol/L (98-107); CREATININE 0.6 mg/dL (0.6-1.3); GLUCOSE 123 mg/dL (74-106); POTASSIUM 3.9 mmol/L (3.5-5.1); SODIUM SERUM 140 mmol/L (136-145); TOTAL PROTEIN, SERUM 6.3 g/dL (6.4-8.2); UREA NITROGEN, BLOOD 9 mg/dL (7-18)
[2018-12-30 13:42] LABS: BASOPHILS % (AUTO) 0.3 % (0.0-2.0); EOSINOPHILS % (AUTO) 0.2 % (0.0-6.0); HEMATOCRIT 34 % (33-45); LYMPHOCYTES # (AUTO) 1.6 /CMM (0.8-4.8); LYMPHOCYTES % (AUTO) 19.4 % (20.0-44.0); MEAN CORPUSCULAR HGB CONC 33 g/dl (31.0-36.0); MEAN CORPUSCULAR VOLUME 91 fL (82-100); MONOCYTES # (AUTO) 0.9 /CMM (0.1-1.30); MONOCYTES % (AUTO) 10.8 % (2.0-12.0); NEUTROPHILS # (AUTO) 5.8 /CMM (1.8-8.9); NEUTROPHILS % (AUTO) 69.3 % (43.0-81.0); PLATELET COUNT (AUTO) 297 /CMM (150-450); WHITE BLOOD COUNT (AUTO) 8.3 K/uL (4.3-11.0)
--- NOTE | 2018-12-30 14:00 | NUR ---
pt moans/groans/screams asking for pain meds states pain mostly "back/shoulder/arm on left side. Medicated as ordered. Pt reeks of urine- diapers full states was NOT changes since discharge from here yesterday. Cleaned.
[2018-12-30] MEDS ORDERED: HYDROMORPHONE 1 MG/1 ML DISP.SYRIN ONE (14:14)
--- NOTE | 2018-12-30 14:15 | NUR ---
[facility] PAGED
--- NOTE | 2018-12-30 14:19 | NUR ---
RECIEVED BED 310-2
[2018-12-30] MEDS ORDERED: HYDROMORPHONE INJ 0.5 MG/0.5 ML SYRINGE IV ONE (14:30)
--- NOTE | 2018-12-30 14:47 | NUR ---
CERTIFIED MEDICINE AIDE,MELI,CHECKING IF PATIENT CAN BE D/C TO A REHAB FACILITY REQUESTED BY DR CROWDER THRPayal PRITCHETT
[2018-12-30] MEDS ORDERED: HALOPERIDOL LACTATE INJ 5 MG/ML VIAL ONE (15:09)
--- NOTE | 2018-12-30 15:15 | NUR ---
TOVA CHINO MADE AWARE OF PA-C ORDER FOR EVAL.
--- NOTE | 2018-12-30 15:15 | NUR ---
pt started moaning/groaning screaming secondary to pain. Corwin PRITCHETT in to see pt w/orders for 5mg Haldol IM given left deltoid as ordered Awaiting MD acceptance for admission
[2018-12-30] MEDS ORDERED: HALOPERIDOL LACTATE INJ 5 MG/ML VIAL IM ONE (15:30)
--- NOTE | 2018-12-30 16:02 | NUR ---
NOVA (PERSONAL FITNESS MANAGER)PAGED FOR PSYCH EVAL
--- NOTE | 2018-12-30 17:56 | NUR ---
I/O cath done specimen sent to lab Obtained 50cc clear yellow UO No acute changes. NO obvious distress Tract PET here to evaluate patient
[2018-12-30 18:38] LABS: ACETAMINOPHEN < 2 ug/ml (10-30); ALCOHOL, BLOOD < 3 mg/dL (0-0); SALICYLATE < 2.8 mg/dL (2.8-20.0)
--- NOTE | 2018-12-30 19:07 | NUR ---
Report given to Khadijah for admission to [facility]. Hold/5150/GD located inside clipboard. For transfer to floor after shift change Nurse Knowledge Exchange w/FENG Moore.
[2018-12-30 20:00] VITALS: BP 152/90
--- NOTE | 2018-12-30 20:01 | NUR ---
PT TRANSFERRED TO GPS
--- NOTE | 2018-12-30 20:10 | NUR ---
GPS ADMISSION NOTES: ADMITTED A 73-YR OLD FEMALE, CAME FROM ER INITIALLY FROM HOME, ON 5150 FOR GD. PER HOLD, PT. HAS A HISTORY OF DEPRESSION AND ANXIETY AND CURRENTLY SHE CANNOT CARE FOR HERSELF AT HOME. PATIENT APPEARED ANXIOUS, DISTRESSED AND STATED "I HURT A LOT. I FELL YESTERDAY COMING OUT OF THE BATHROOM AND I HAVE SEVERE PAIN. MY CAREGIVER BROKE HIS ARM AND HE CANNOT TAKE CARE OF ME AT HOME". UPON FACE TO FACE ASSESSMENT, PATIENT IS ALERT AND ORIENTED X2, ANXIOUS, DEPRESSED, INTERACTS WHEN ENGAGED. PATIENT C/O LOWER BACK PAIN. NO AGITATION NOTED. DENIES SI/HI OR HALLUCINATIONS. PT. WAS ADVISED OF THE HOLD. PT'S RIGHTS DISCUSSED GUIDE TO PRESCRIPTION MEDICATIONS GIVEN. IN NO APPARENT DISTRESS NOTED. BELONGINGS WERE INVENTORIED AND CHECKED FOR CONTRABAND. PT. IS UNDER THE PSYCHIATRIC CARE OF DR. TEJEDA ORDERS OBTAINED, AND UNDER THE CARE OF DR. CALLE NOTIFIED OF PT'S ADMISSION. SKIN ASSESSMENT DONE NOTED WITH MULTIPLE SKIN TEARS D/T STATUS POST FALL. WOUND CARE CONSULT ORDERED. BED LOCKED AND PLACED IN LOWEST POSITION. SAFETY PRECAUTIONS FOR FALL INITIATED. CALL BALDERAS IN REACH. WILL CONTINUE TO MONITOR Q15 MIN ROUNDS FOR SAFETY. LOYDA US CAREGIVER WAS NOTIFIED OF PT'S ADMISSION.
[2018-12-30 21:00] VITALS: BP 152/90
[2018-12-30] MEDS ORDERED: clonazePAM 0.5 MG TABLET PO PRN (21:00)
[2018-12-30] MEDS ORDERED: MAGNESIUM HYDROXIDE 30 ML UDC PO PRN (21:00)
[2018-12-30] MEDS ORDERED: MAG HYDROX/AL HYDROX/SIMETH 30 ML UDC PO PRN (21:00)
--- NOTE | 2018-12-30 21:20 | NUR ---
GPS-RN 2119 - SPOKE WITH DR. CALLE REGARDING MEDICATION RECONCILIATION. DR. CALLE STATED TO GIVE BUPRENORPHINE HCL 2MG TAB SL NOW 12/30/18 AND TOMORROW 12/31/18 AT 9AM, CALTRATE WITH GUERLINE D 600MG PO BID, TRAMADOL 50MG PO BID PRN AND DOCUSATE SODIUM 200MG PO HS. 2209 - PLACED A CALL TO DR. CALLE INFORMING HER THAT [facility] DOES NOT CARRY THOSE MEDICATIONS BUPRENORPHINE AND CALTRATE. MD STATED TO START IT IN THE MORNING AND CALL CAREGIVER LOYDA US, SPOKE WITH THE CAREGIVER AND STATED HE'S UNABLE TO BRING THOSE MEDS BECAUSE HE HAS A BROKEN ARM. WILL ENDORSE TO THE DAY SHIFT NURSE TO CALL DR. CALLE TO FOLLOW UP.
[2018-12-30] MEDS: ACETAMINOPHEN 325 MG TABLET PO PRN (21:21)
[2018-12-30] MEDS ORDERED: BLOOD SUGAR DIAGNOSTIC 1 EACH STRIP IN ONE (21:30)
[2018-12-30 22:25] LABS: APPEARANCE,URINE Slightly Cloudy (CLEAR); BILIRUBIN,URINE SMALL (NEGATIVE); BLOOD, URINE Negative Ery/uL (NEGATIVE); COLOR,URINE Yellow (YELLOW); KETONES,URINE Trace (NEGATIVE); LEUKOCYTE ESTERASE ,URINE Negative (NEGATIVE); NITRITE, URINE Negative (NEGATIVE); PH,URINE 7.5 (5.0-8.0); PROTEIN,URINE Negative (NEGATIVE); UGLUCOSE Negative (NEGATIVE)
[2018-12-30] MEDS: TRAMADOL HCL 50 MG TABLET PO PRN (22:38)
[2018-12-30] MEDS: DOCUSATE SODIUM 100 MG CAPSULE PO SCH (22:40)
[2018-12-30 22:48] LABS: BACTERIA,URINE Moderate /HPF (None Seen); RBC,URINE 0-2 /HPF (0-2)
[2018-12-30 22:49] LABS: SQUAMOUS EPITHELIAL CELL,UR Few /HPF (None Seen)
[2018-12-31] MEDS: clonazePAM 0.5 MG TABLET PO PRN ×3 (06:02→17:21)
[2018-12-31 08:00] VITALS: BP 168/98
[2018-12-31] MEDS: PANTOPRAZOLE 40 MG TABLET.DR PO SCH (08:14)
[2018-12-31] MEDS: GABAPENTIN 300 MG CAPSULE PO SCH ×3 (08:14→17:19)
--- NOTE | 2018-12-31 10:41 | NUR ---
GPS RN NOTES PLACED CALL TO LOYDA, CAREGIVER. ASKED IF HE IS ABLE TO BRING PATIENT'S HOME MEDICATION OUR PHARMACY DOES NOT CARRY BUPHRENORPHINE. PER LOYDA, HE IS UNABLE TO BRING HOME MEDICATIONS AND NO ONE ELSE IS AVAILABLE TO BRING THEM TO THE HOSPITAL. PLACED CALL TO DR. CALLE'S OFFICE ([phone]) AND SPOKE WITH MISTY BARRERA MESSAGE FOR DR. CALLE, PER HOLLY, SHE WILL LET DR. CALLE KNOW. LEFT CALL BACK NUMBER FOR NEW ORDERS. WILL CONTINUE TO MONITOR
--- NOTE | 2018-12-31 10:48 | NUR ---
WOUND CARE CONSULT:SEEN PATIENT AT BEDSIDE,PATIENT PRESENTS SKIN TEAR ON LT HAND, CÉSAR, RECOMMENDATION MADE FOR SKIN PROTECTION ,TX PLAN DISCUSSED WITH NURSING STAFF, IN AGREEMENT WITH PLAN OF CARE, WILL SEE PRN Addendum: 12/31/18 at 1102 by ZAIDA CRUZ RN Amended: Links added.
[2018-12-31] MEDS ORDERED: Z GUARD REMEDY 2 OZ OINT TP PRN (13:00)
--- NOTE | 2018-12-31 13:10 | NUR ---
GPS RN NOTES DR CALLE PRESENT AT UNIT. AWARE THAT PATIENT'S CAREGIVER IS UNABLE TO BRING HOME MEDICATIONS, INCLUDING BUPRENORPHINE. DR CALLE MADE AWARE THAT WE DONT CARRY THAT MEDICATION IN OUR PHARMACY. PATIENT SEEN BY DR CALLE. NEW ORDERS FOR ENSURE TID AND CALCIUM WITH VIT. D, NOTED AND CARRIED OUT. PATIENT MADE AWARE AND VERBALIZED UNDERSTANDING. WILL CONTINUE TO MONITOR
[2018-12-31 14:58] LABS: CREATININE 0.7 mg/dL (0.6-1.3)
--- NOTE | 2018-12-31 15:00 | NUR ---
GROUP NOTE: SW prompted pt to participate in group session on this present day discussing "current issues you are having while being on a hold." Pt was asleep in her room and not easily aroused.
[2018-12-31 15:13] LABS: CHOLESTEROL 142 mg/dL (<200); HDL CHOLESTEROL 40 mg/dL (40-60); LDL 93 mg/dL (0-99); TRIGLYCERIDES 66 mg/dL (30-150)
[2018-12-31 16:00] VITALS: BP 134/72
[2018-12-31] MEDS ORDERED: busPIRone HCL 10 MG TABLET PO SCH (17:00)
[2018-12-31] MEDS: CALCIUM CARB 600MG /VIT D 1 EACH TABLET PO SCH (17:18)
[2018-12-31] MEDS: TRAMADOL HCL 50 MG TABLET PO PRN (17:19)
[2018-12-31] MEDS: busPIRone 5 MG TABLET PO SCH (17:20)
[2018-12-31] MEDS: ENSURE ENLIVE CHOC 237 ML CAN PO SCH (17:22)
[2018-12-31 19:48] VITALS: BP 138/66
[2018-12-31] MEDS: DOCUSATE SODIUM 100 MG CAPSULE PO SCH (21:18)
[2018-12-31] MEDS: QUETIAPINE FUMARATE 25 MG TABLET PO SCH (21:19)
[2018-12-31] MEDS: TEMAZEPAM 7.5 MG CAPSULE PO PRN (21:52)
[2019-01-01] MEDS: TRAMADOL HCL 50 MG TABLET PO PRN ×3 (06:56→20:03)
[2019-01-01] MEDS: ESCITALOPRAM OXALATE (10 MG) 10 MG TABLET PO SCH (09:01)
[2019-01-01] MEDS: GABAPENTIN 300 MG CAPSULE PO SCH ×3 (09:01→17:27)
[2019-01-01] MEDS: CALCIUM CARB 600MG /VIT D 1 EACH TABLET PO SCH ×2 (09:01→17:27)
[2019-01-01] MEDS: PANTOPRAZOLE 40 MG TABLET.DR PO SCH (09:02)
[2019-01-01] MEDS: busPIRone 5 MG TABLET PO SCH ×2 (09:02→17:27)
[2019-01-01] MEDS: ENSURE ENLIVE CHOC 237 ML CAN PO SCH ×3 (09:03→17:29)
[2019-01-01 09:29] VITALS: BP 148/71
[2019-01-01] MEDS: clonazePAM 0.5 MG TABLET PO PRN ×2 (14:45→20:44)
[2019-01-01] MEDS ORDERED: ONDANSETRON HCL 4 MG/5 ML SOLUTION PO ONE (15:00)
[2019-01-01 16:00] VITALS: BP 155/76
--- NOTE | 2019-01-01 16:17 | NUR ---
Initial Discharge Plan: Pt currently resides at her home located at [address] [place] [address]; ([phone]). Per pt, she would like to be discharged to a detention facility. SW will work with the pt and the MD regarding appropriate discharge planning. SW will form a safe and proper discharge.
--- NOTE | 2019-01-01 16:18 | NUR ---
SW called Casper Prado ([phone]), pts caregiver, and he stated that he cannot care for her and thinks that she needs a higher level of care. He stated that he would like to remain involved in her treatment.
--- NOTE | 2019-01-01 16:18 | NUR ---
PATIENCE met with Dr. Gutierrez ([phone]) who stated that she wants the pt to be referred to [facility]. PATIENCE stated that she would send a referral and keep her updated on the case.
--- NOTE | 2019-01-01 16:26 | NUR ---
Group Note: Pt was encouraged to participate in group therapy discussing the topic of discharge planning. Pt stated that she wants to return to [facility] and does not have anything else to say with her peers.
--- NOTE | 2019-01-01 19:46 | NUR ---
GPS/RN OPENING NOTES RECEIVED PATIENT IN BED, AWAKE, ALERT X2, HAVING SOME SNACKS, NOTED SPASTIC IN UPPER EXTREMITIES,MONITORING FOR ANY CHANGES IN BEHAVIOR, APPEAR CALM AT THIS TIME REPORTED SEVERE PAIN WILL ADMINISTER PRESCRIBED MEDICATION.REPORT RECEIVED FROM AM RN FOR ELLIS. WILL MONITOR,
--- NOTE | 2019-01-01 20:04 | NUR ---
gps/rn notes PAIN MANAGEMENT REQUESTED FOR LEFT ARM OF 11/21, PATIENT VITAL SIGNS CHECK ELEVATED, REPORTED AND OBSERVED BEHAVIOR IRRITABLE REQUESTING FOR ATIVAN AND THAT WOULD LIKE TO SLEEP EARLIER, WILL FOLLOW UP PAIN RELIEF AND DISCUSSED MEDS.
--- NOTE | 2019-01-01 20:41 | NUR ---
GPS/RN NOTES PATIENT REPORTED NEED FOR MEDICATION TO HELP HER RELAX, APPEAR UNEASY AND WILL PROVIDE NEEDED MEDICATION. WILL MONITOR RELIEF.
[2019-01-01 20:46] VITALS: BP 162/90
[2019-01-01] MEDS: QUETIAPINE FUMARATE 25 MG TABLET PO SCH (21:10)
[2019-01-01] MEDS: TEMAZEPAM 7.5 MG CAPSULE PO PRN (21:10)
--- NOTE | 2019-01-01 21:10 | NUR ---
GPS/RN NOTES PATIENT REQUESTED FOR SLEEP MEDICATION, RESTORIL7.5 MG BY MOUTH GIVEN, COMPLIANT WITH MEDICATION WILL MONITOR. REPORTED UNABLE TO SLEEP. REFUSE TO TAKE STOOL SOFTENER AT THIS TIME PATIENT REPORTED DIARRHEA YESTERDAY.
[2019-01-01] MEDS: DOCUSATE SODIUM 100 MG CAPSULE PO SCH (21:12)
[2019-01-02] MEDS: GABAPENTIN 300 MG CAPSULE PO PRN ×2 (01:12→21:27)
--- NOTE | 2019-01-02 01:16 | NUR ---
GPS/RN NOTES GABAPENTIN FOR NERVE PAIN GIVEN, WILL MONITOR.
[2019-01-02] MEDS: clonazePAM 0.5 MG TABLET PO PRN ×2 (01:32→11:12)
--- NOTE | 2019-01-02 01:39 | NUR ---
GPS/RN NOTES PATIENT REPORTED INABILITY TO RELAX, REQUESTED FOR MEDICATION NEEDED.
[2019-01-02 08:00] VITALS: BP 140/79
[2019-01-02] MEDS: CALCIUM CARB 600MG /VIT D 1 EACH TABLET PO SCH ×2 (09:03→18:00)
[2019-01-02] MEDS: ESCITALOPRAM OXALATE (10 MG) 10 MG TABLET PO SCH (09:03)
[2019-01-02] MEDS: busPIRone 5 MG TABLET PO SCH ×2 (09:03→18:00)
[2019-01-02] MEDS: GABAPENTIN 300 MG CAPSULE PO SCH ×3 (09:03→18:00)
[2019-01-02] MEDS: PANTOPRAZOLE 40 MG TABLET.DR PO SCH (09:03)
--- NOTE | 2019-01-02 09:11 | NUR ---
PATIENCE faxed a referral to [facility] with attention to Admissions to the fax number: [phone].
[2019-01-02] MEDS: ENSURE ENLIVE CHOC 237 ML CAN PO SCH ×3 (09:13→18:17)
--- NOTE | 2019-01-02 10:47 | NUR ---
Lidya ([phone]) from [facility] called the SW and stated that the pt was accepted to their facility and that once she is ready for discharge the pt will be in Rm 207B.
--- NOTE | 2019-01-02 10:49 | NUR ---
PATIENCE contacted Dr. Gutierrez ([phone]) and informed her that the pt was accepted to [facility] and that the SW will inform her when the psychiatrist determines a discharge date.
--- NOTE | 2019-01-02 11:12 | NUR ---
MEDICATED FOR NERVOUSNESS WITH KLONOPIN.
[2019-01-02] MEDS: TRAMADOL HCL 50 MG TABLET PO PRN (14:11)
--- NOTE | 2019-01-02 14:11 | NUR ---
MEDICATED FOR LT. SHOULDER PAIN AND LOW BACK PAIN WITH ULTRAM.
[2019-01-02 16:03] VITALS: BP 138/79
--- NOTE | 2019-01-02 16:24 | NUR ---
GROUP NOTE: SW prompted pt to participate in group session on this present day discussing "medication compliance." Pt refused stating that she did not want to leave her room and that she was leaving soon so she just wanted to focus on that.
--- NOTE | 2019-01-02 18:35 | NUR ---
JUST VOMITED MOD. AMT. AFTER TAKING FAISAL. MEDS,CLEANED UP.
[2019-01-02 20:24] VITALS: BP 158/98
[2019-01-02] MEDS: DOCUSATE SODIUM 100 MG CAPSULE PO SCH ×2 (21:27→22:00)
[2019-01-02] MEDS: QUETIAPINE FUMARATE 25 MG TABLET PO SCH (21:27)
[2019-01-02] MEDS: TEMAZEPAM 7.5 MG CAPSULE PO PRN (21:27)
[2019-01-03] MEDS: TRAMADOL HCL 50 MG TABLET PO PRN ×3 (05:18→23:30)
[2019-01-03] MEDS: PANTOPRAZOLE 40 MG TABLET.DR PO SCH (07:30)
[2019-01-03 08:00] VITALS: BP 163/82
[2019-01-03] MEDS: GABAPENTIN 300 MG CAPSULE PO SCH ×3 (08:07→16:17)
[2019-01-03] MEDS: ENSURE ENLIVE CHOC 237 ML CAN PO SCH ×3 (08:07→17:00)
[2019-01-03] MEDS: CALCIUM CARB 600MG /VIT D 1 EACH TABLET PO SCH ×2 (08:17→16:30)
[2019-01-03] MEDS: ESCITALOPRAM OXALATE (10 MG) 10 MG TABLET PO SCH (08:17)
[2019-01-03] MEDS: busPIRone 5 MG TABLET PO SCH ×2 (08:17→16:30)
[2019-01-03] MEDS: clonazePAM 0.5 MG TABLET PO PRN ×3 (09:04→20:04)
--- NOTE | 2019-01-03 13:05 | NUR ---
PATIENCE called Lidya ([phone]) from [facility] and informed her that the pt will be discharged on Monday.
--- NOTE | 2019-01-03 13:06 | NUR ---
PATIENCE called Casper Prado ([phone]), pts caregiver, and informed him that the pt will be discharged to [facility] and he stated that he was content with the news and that he will visit her on Monday or Monday.
--- NOTE | 2019-01-03 13:06 | NUR ---
PATIENCE contacted Dr. Gutierrez ([phone]) and informed her that the pt will be discharged on Monday.
--- NOTE | 2019-01-03 13:13 | NUR ---
SW spoke to the pt about her discharge to [facility] and she stated that she was excited to be at the facility and away from her real estate professional who she loves dearly but acknowledges that he cannot take care of her properly.
--- NOTE | 2019-01-03 14:42 | NUR ---
PC Hearing Notification: SW called Casper Prado ([phone]), pts caregiver, and informed him that the pt is going to have a Probable Cause hearing the following day and explained what the hearing entails.
[2019-01-03] MEDS ORDERED: LOPERAMIDE HCL (2 MG CAP) 2 MG CAPSULE PO PRN (15:00)
--- NOTE | 2019-01-03 15:46 | NUR ---
Group Note: SW prompted the pt to participate in group therapy but the pt stated that she was feeling tired and wanted to remain in her room. She also stated that she did not want to interact with some of the pts. SW provided an individual intervention with her about her placement and addressed her concerns.
[2019-01-03 16:00] VITALS: BP 149/74
--- NOTE | 2019-01-03 18:15 | NUR ---
RN NOTES Patient stated that her chest is hurting, took vital signs and BP of 192/94, 130 heart rate was taken. called and she ordered stat EKG and troponin. Clonopin given and will retake blood pressure. Addendum: 01/03/19 at 1840 by JAYA MARES RN change clonopin to catapress. Error in spelling.
[2019-01-03] MEDS: CLONIDINE HCL 0.1 MG TABLET PO PRN (18:16)
--- NOTE | 2019-01-03 18:37 | NUR ---
RN NOTES Took another BP reading. BP of 121 / 77, heart rate of 73 at this time, patient stated that her chest pain is about the same. EKG and troponin was ordered stat.
[2019-01-03 20:00] VITALS: BP 158/78
--- NOTE | 2019-01-03 20:35 | NUR ---
CALLED DR. CALLE FOR EKG RESULT NORMAL SINUS RHYTHM AND TROPONIN LEVEL OF 0.017 NO NEW ORDERED. WILL CONTINUE TO MONITOR.
--- NOTE | 2019-01-03 22:00 | NUR ---
REFUSED HER DOCUSATE SODIUM PILL, SHE HAD A BM ALREADY DURING THE DAY Addendum: 01/05/19 at 0012 by PURVI BRAVO RN DOCUMENTATION ABOVE INTENDED FOR TODAY 01/04/2019
[2019-01-03] MEDS: DOCUSATE SODIUM 100 MG CAPSULE PO SCH (22:07)
[2019-01-03] MEDS: QUETIAPINE FUMARATE 25 MG TABLET PO SCH (22:07)
[2019-01-03] MEDS: TEMAZEPAM 7.5 MG CAPSULE PO PRN (22:08)
[2019-01-04] MEDS: ACETAMINOPHEN 325 MG TABLET PO PRN (04:16)
--- NOTE | 2019-01-04 04:25 | NUR ---
C/O PAIN ON HER LEFT ARM, TYLENOL 650 MG TAB PO GIVEN.
[2019-01-04] MEDS: clonazePAM 0.5 MG TABLET PO PRN (05:14)
[2019-01-04 08:00] VITALS: BP 127/64
[2019-01-04] MEDS: CALCIUM CARB 600MG /VIT D 1 EACH TABLET PO SCH ×2 (08:06→16:33)
[2019-01-04] MEDS: GABAPENTIN 300 MG CAPSULE PO SCH ×3 (08:06→16:32)
[2019-01-04] MEDS: ESCITALOPRAM OXALATE (10 MG) 10 MG TABLET PO SCH (08:06)
[2019-01-04] MEDS: PANTOPRAZOLE 40 MG TABLET.DR PO SCH (08:06)
[2019-01-04] MEDS: busPIRone 5 MG TABLET PO SCH ×2 (08:08→16:32)
[2019-01-04] MEDS: ENSURE ENLIVE CHOC 237 ML CAN PO SCH ×3 (08:10→17:24)
[2019-01-04] MEDS ORDERED: ONDANSETRON HCL 4 MG/5 ML SOLUTION PO PRN (14:00)
--- NOTE | 2019-01-04 14:42 | NUR ---
Group Note: SW prompted the pt to participate in group therapy but the pt stated that she was feeling tired and wanted to remain in her room. During that time the psychologist Dr. Charles walked in and began her individual session with pt. PATIENCE was unable to provide an individual intervention at this time.
[2019-01-04] MEDS: TRAMADOL HCL 50 MG TABLET PO PRN ×2 (15:21→22:28)
[2019-01-04 16:00] VITALS: BP 130/72
[2019-01-04 20:00] VITALS: BP 134/78
[2019-01-04] MEDS: DOCUSATE SODIUM 100 MG CAPSULE PO SCH (21:20)
[2019-01-04] MEDS: QUETIAPINE FUMARATE 25 MG TABLET PO SCH (21:21)
[2019-01-04] MEDS: TEMAZEPAM 7.5 MG CAPSULE PO PRN (21:24)
--- NOTE | 2019-01-04 21:24 | NUR ---
REQUESTED FOR HER SLEEPING PILL, TEMAZEPAM 7.5 MG CAP PO GIVEN.
--- NOTE | 2019-01-04 22:29 | NUR ---
C/O PAIN LEFT ARM, 7/10 ON PAIN SCALE, TRAMADOL 50 MG TAB PO GIVEN.
--- NOTE | 2019-01-04 22:30 | NUR ---
PATIENT REQUESTED TO PUT A KERLIX ROLL ON HER LEFT ARM, THERE IS NO ORDER TO WRAP IT.
[2019-01-05] MEDS: clonazePAM 0.5 MG TABLET PO PRN ×3 (03:46→19:42)
[2019-01-05] MEDS: ACETAMINOPHEN 325 MG TABLET PO PRN ×2 (03:46→12:15)
[2019-01-05 08:00] VITALS: BP 139/76
[2019-01-05] MEDS: PANTOPRAZOLE 40 MG TABLET.DR PO SCH (08:40)
[2019-01-05] MEDS: ENSURE ENLIVE CHOC 237 ML CAN PO SCH ×3 (08:41→16:20)
[2019-01-05] MEDS: busPIRone 5 MG TABLET PO SCH ×2 (08:41→16:19)
[2019-01-05] MEDS: GABAPENTIN 300 MG CAPSULE PO SCH ×3 (08:41→16:19)
[2019-01-05] MEDS: ESCITALOPRAM OXALATE (10 MG) 10 MG TABLET PO SCH (08:41)
[2019-01-05] MEDS: CALCIUM CARB 600MG /VIT D 1 EACH TABLET PO SCH ×2 (08:41→16:13)
[2019-01-05] MEDS: TRAMADOL HCL 50 MG TABLET PO PRN ×2 (08:41→16:19)
--- NOTE | 2019-01-05 10:00 | NUR ---
GPS RN NOTE PT TOOK OFF DRESSING ON LEFT HAND AND REFUSED WOUND CARE, STATED "IT'S ALL BETTER NOW". EDUCATION PROVIDED, PT STILL REFUSED AND STATED "NO I DON'T NEED IT".
[2019-01-05 15:59] VITALS: BP 139/74
--- NOTE | 2019-01-05 17:00 | NUR ---
GPS RN NOTE PT CONTINUES TO REFUSED WOUND CARE ORDERED. EDUCATION PROVIDED, PT REFUSED
--- NOTE | 2019-01-05 19:22 | NUR ---
CALLING FOR DECAF COFFEE, RN WENT DOWN TO HET THE COFFEE, PATIENT WAS THANKFUL.
--- NOTE | 2019-01-05 19:48 | NUR ---
ANXIOUS, ASKING FOR KLONOPIN 0.5 MG TAB PO GIVEN. @ 1941.
[2019-01-05 20:00] VITALS: BP 152/74
[2019-01-05] MEDS: TEMAZEPAM 7.5 MG CAPSULE PO PRN (20:23)
--- NOTE | 2019-01-05 20:23 | NUR ---
REQUESTED FOR SLEEPING PILL, TEMAZEPAM 7.5 MG CAP PO GIVEN FOR INSOMNIA.
[2019-01-05] MEDS: DOCUSATE SODIUM 100 MG CAPSULE PO SCH (22:00)
[2019-01-05] MEDS: QUETIAPINE FUMARATE 25 MG TABLET PO SCH (22:09)
[2019-01-06 08:00] VITALS: BP 149/79
[2019-01-06] MEDS: GABAPENTIN 300 MG CAPSULE PO SCH ×3 (08:27→16:20)
[2019-01-06] MEDS: ESCITALOPRAM OXALATE (10 MG) 10 MG TABLET PO SCH (08:27)
[2019-01-06] MEDS: busPIRone 5 MG TABLET PO SCH ×2 (08:27→16:19)
[2019-01-06] MEDS: PANTOPRAZOLE 40 MG TABLET.DR PO SCH (08:27)
[2019-01-06] MEDS: CALCIUM CARB 600MG /VIT D 1 EACH TABLET PO SCH ×2 (08:30→16:20)
[2019-01-06] MEDS: clonazePAM 0.5 MG TABLET PO PRN ×3 (09:43→20:46)
[2019-01-06] MEDS: ENSURE ENLIVE CHOC 237 ML CAN PO SCH ×3 (09:47→16:30)
[2019-01-06] MEDS: TRAMADOL HCL 50 MG TABLET PO PRN ×2 (10:37→19:45)
[2019-01-06 16:00] VITALS: BP 146/77
[2019-01-06 19:59] VITALS: BP 169/85
[2019-01-06] MEDS: DOCUSATE SODIUM 100 MG CAPSULE PO SCH (21:04)
[2019-01-06] MEDS: QUETIAPINE FUMARATE 25 MG TABLET PO SCH (21:04)
--- NOTE | 2019-01-06 21:04 | NUR ---
GPS-RN PATIENT REFUSED HER DOCUSATE SODIUM. PATIENT STATED "I HAVE BOWEL MOVEMENT EVERYDAY I DON'T NEED IT". DESPITE OF EDUCATION PROVIDED. PT STILL REFUSED.
[2019-01-06] MEDS: TEMAZEPAM 7.5 MG CAPSULE PO PRN (21:42)
[2019-01-07] MEDS: TRAMADOL HCL 50 MG TABLET PO PRN (03:20)
[2019-01-07] MEDS ORDERED: clonazePAM 1 MG TABLET ONE (05:07)
[2019-01-07] MEDS: clonazePAM 0.5 MG TABLET PO PRN (05:11)
--- NOTE | 2019-01-07 05:15 | NUR ---
GPS-RN PATIENT IS VERY ANXIOUS AND RESTLESS, SCREAMING AND YELLING. ADMINISTERED KLONOPIN 0.5MG PO ORDERED. WILL CONTINUE TO MONITOR FOR SAFETY.
[2019-01-07 08:00] VITALS: BP 151/99
[2019-01-07] MEDS: ENSURE ENLIVE CHOC 237 ML CAN PO SCH ×2 (08:33→12:49)
[2019-01-07] MEDS: PANTOPRAZOLE 40 MG TABLET.DR PO SCH (08:33)
[2019-01-07] MEDS: GABAPENTIN 300 MG CAPSULE PO SCH ×2 (08:33→12:49)
[2019-01-07] MEDS: ESCITALOPRAM OXALATE (10 MG) 10 MG TABLET PO SCH (08:33)
[2019-01-07] MEDS: CALCIUM CARB 600MG /VIT D 1 EACH TABLET PO SCH (08:34)
--- NOTE | 2019-01-07 10:07 | NUR ---
GPS/RN-NOTES BUSPAR 10 MG P.O NOT ADMINISTER AT THIS TIME DUE TO PER PHARMACY ( [facility]) MEDICATIONS IS BEEN ORDERED. AWAITING FOR THE DISPENSE IN THE UNIT.
[2019-01-07] MEDS: busPIRone 5 MG TABLET PO SCH (10:47)
[2019-01-07 12:43] VITALS: BP 168/88
[2019-01-07] MEDS: CLONIDINE HCL 0.1 MG TABLET PO PRN (12:43)
--- NOTE | 2019-01-07 13:44 | NUR ---
GPS/RN-NOTES PATIENT DISCHARGE TO [facility]. DR. TEJEDA AND DR. PATEL AWARE AND AGREED OF PATIENT DISCHARGE WITH ORDERS. REPORT WAS GIVEN TO MELODY ( SPECIAL DIET COOK). PATIENT DID NOT VERBALIZE SI/HI DENIES VISUAL /AUDITORY HALLUCINATIONS AT THE TIME OF DISCHARGE. PATIENT UNABLE TO SIGN ALL DISCHARGE PAPERS DUE TO PATIENT STATED" I CANNOT SIGN, MY HAND IS WEAK, ALSO PATIENT STRONGLY REFUSED FULL BODY ASSESSMENT AND PICTURE TAKEN . STATED " THEY TOOK MY PICTURES YESTERDAY AND YOU ARE NOT GOING TO TAKE PICTURES AGAIN". EXPLAINED HOSPITAL POLICIES BUT PATIENT STILL REFUSED.PER NOTES PATIENT CLERICAL ORDER FILLER LOYDA ( [phone]) AWARE OF PATIENT DISCHARGE. PATIENT LEFT THE UNIT IN STABLE CONDITION,ALERT ORIENTED X2 , VITAL SIGN BP 149/85,P74. PATIENT LEFT WITH ALL BELONGINGS. ROUTE VENDING MACHINE SERVICER BY AMBULANCE VIA GURNEY WITH TWO STAFF ASSIST.
--- NOTE | 2019-01-07 14:18 | NUR ---
Discharge Note: Pt was discharged to [facility] ([facility]) located at [address] [place] [address]; . Pt�s caregiver, Casper ([phone]), was informed of the discharged. Pt was transported via [facility] at 11:30am and will be in 207B. Upon discharge, the pt appeared to be in a euthymic mood and presented with an anxious and distressed affect. Pt denied both suicidal and homicidal ideation as well as auditory and visual hallucinations. Pt will be under the care of his psychiatrist, Dr. Juan Duffy, located at [address] [place] [address]; and her label folder, Dr. Mackenzie Gutierrez, located at [id number] [place] [id number]; .
== END 2019-01-07 13:45 | DRG 885 ==
LOC: ER 12:41 → MED 14:20 → GPS 17:49
PROVIDERS: ADMIT Psychiatry & Neurology Psychiatry; ATTEND Nurse Practitioner Acute Care
DX: F33.2 Major depressive disorder, recurrent severe without psychotic features (principal); E43 Unspecified severe protein-calorie malnutrition; Z68.1 Body mass index [BMI] 19.9 or less, adult; F23 Brief psychotic disorder; E03.9 Hypothyroidism, unspecified; J44.9 Chronic obstructive pulmonary disease, unspecified; M79.7 Fibromyalgia; R62.7 Adult failure to thrive; G89.29 Other chronic pain; M54.9 Dorsalgia, unspecified; E78.5 Hyperlipidemia, unspecified; G62.9 Polyneuropathy, unspecified; Z96.641 Presence of right artificial hip joint; Z88.0 Allergy status to penicillin; M85.80 Other specified disorders of bone density and structure, unspecified site; M81.0 Age-related osteoporosis without current pathological fracture; M19.90 Unspecified osteoarthritis, unspecified site; Z88.2 Allergy status to sulfonamides; G31.84 Mild cognitive impairment of uncertain or unknown etiology
CPT/HCPCS: 36415; 80048-TC; 80061-TC; 80076-TC; 80305; 81000-TC; 82565-TC; 82962-TC; 84484-TC; 85025-TC; 87081-TC; 87086-TC; 92526; 92611-TC; 97110-TC; 97116-TC; 97530-TC; G0480; J1170; J1630; J2270; J2405; J7030

== ENCOUNTER 2019-01-09 05:18 | Emergency (ER) | payer MEDICARE, MEDICAID ==
[~2019-01-09 05:18] MED LIST changes: -BUPR1TAB SL; +BUSP10TA35 PO; -CALC600T12 PO; -CHOL400T28 PO; -GABA-534 PO; -LORA0.5T PO; -MAGN400O6 PO; -TEMA30CA PO; +TRAM50TA2 PO
[2019-01-09] MEDS ORDERED: HYDROCODONE/APAP 5/325MG 1 EACH TABLET ONE (07:19)
[2019-01-09] MEDS ORDERED: HYDROCODONE/APAP 5/325MG 1 EACH TABLET PO ONE (07:30)
== END 2019-01-09 08:13 ==
DX: S42.492A Other displaced fracture of lower end of left humerus, initial encounter for closed fracture (principal); I50.9 Heart failure, unspecified; J44.9 Chronic obstructive pulmonary disease, unspecified; M54.9 Dorsalgia, unspecified; G89.29 Other chronic pain; F29 Unspecified psychosis not due to a substance or known physiological condition; M79.7 Fibromyalgia; R63.4 Abnormal weight loss; F17.200 Nicotine dependence, unspecified, uncomplicated; F12.10 Cannabis abuse, uncomplicated; Z96.641 Presence of right artificial hip joint; Z88.0 Allergy status to penicillin; Z88.2 Allergy status to sulfonamides; Z88.1 Allergy status to other antibiotic agents; Z88.7 Allergy status to serum and vaccine; Z98.890 Other specified postprocedural states; W01.0XXA Fall on same level from slipping, tripping and stumbling without subsequent striking against object, initial encounter; Y93.89 Activity, other specified; Y92.89 Other specified places as the place of occurrence of the external cause; Y99.8 Other external cause status

== ENCOUNTER 2019-01-30 17:09 | Emergency (ER) | payer MEDICARE, MEDICAID ==
[~2019-01-30] VITALS: Ht 154.9 cm; Wt 42.6 kg
[2019-01-30] MEDS ORDERED: MORPHINE SULFATE INJ 4 MG/ML DISP.SYRIN ONE (17:49)
[2019-01-30] MEDS ORDERED: MORPHINE SULFATE INJ 2 MG/ML DISP.SYRIN IV ONE (18:00)
[2019-01-30 18:04] LABS: BASOPHILS # (AUTO) 0.1 /CMM (0.0-0.2); BASOPHILS % (AUTO) 0.7 % (0.0-2.0); EOSINOPHILS % (AUTO) 1.9 % (0.0-6.0); HEMATOCRIT 40 % (33-45); HEMOGLOBIN 12.8 g/dL (11.5-14.8); LYMPHOCYTES % (AUTO) 40.6 % (20.0-44.0); MEAN CORPUSCULAR HGB CONC 32 g/dl (31.0-36.0); MEAN CORPUSCULAR VOLUME 92 fL (82-100); MONOCYTES # (AUTO) 0.6 /CMM (0.1-1.30); MONOCYTES % (AUTO) 7.7 % (2.0-12.0); NEUTROPHILS # (AUTO) 3.7 /CMM (1.8-8.9); NEUTROPHILS % (AUTO) 49.1 % (43.0-81.0); PLATELET COUNT (AUTO) 396 /CMM (150-450); RED BLOOD CELL COUNT(AUTO) 4.28 MIL/uL (4.0-5.2); WHITE BLOOD COUNT (AUTO) 7.5 K/uL (4.3-11.0)
[2019-01-30 18:11] LABS: CALCIUM, SERUM 9.8 mg/dL (8.5-10.1); CARBON DIOXIDE 28 mmol/L (21-32); CHLORIDE 105 mmol/L (98-107); CREATININE 0.5 mg/dL (0.6-1.3); GLUCOSE 105 mg/dL (74-106); POTASSIUM 3.5 mmol/L (3.5-5.1); SODIUM SERUM 142 mmol/L (136-145); UREA NITROGEN, BLOOD 16 mg/dL (7-18)
[2019-01-30] MEDS ORDERED: TRAM50TA2 PO (18:23)
[2019-01-30] MEDS ORDERED: CLON0.5T PO (18:23)
[2019-01-30] MEDS ORDERED: CALC-883 PO (18:23)
[2019-01-30] MEDS ORDERED: HYDR-4354 PO (18:23)
[2019-01-30] MEDS ORDERED: DOCU-141 PO (18:23)
[2019-01-30] MEDS ORDERED: TEMA15CA5 PO (18:23)
[2019-01-30] MEDS ORDERED: BUPR1TAB58 SL ×2 (18:23)
[2019-01-30] MEDS ORDERED: CRAN450C PO (18:23)
[2019-01-30] MEDS ORDERED: ACET-868 PO (18:23)
[2019-01-30] MEDS ORDERED: HYDROMORPHONE 1 MG/1 ML DISP.SYRIN ONE ×2 (18:25→20:16)
[2019-01-30] MEDS ORDERED: HYDROMORPHONE 1 MG/1 ML DISP.SYRIN IV ONE ×2 (18:30→20:30)
--- NOTE | 2019-01-30 18:33 | NUR ---
PAGED [employer] DR SANDOVAL
--- NOTE | 2019-01-30 19:03 | NUR ---
TECH AT BEDSIDE FOR REMOVAL OF L ARM CAST
--- NOTE | 2019-01-30 19:12 | NUR ---
PT RECEIVED FROM FENG ALLEN FOR [facility]. EMT AT BEDSIDE FOR CAST REMOVAL.
--- NOTE | 2019-01-30 19:13 | NUR ---
REPORT GIVEN TO NATASHA TONEY FOR [facility]
--- NOTE | 2019-01-30 20:38 | NUR ---
SANDRA ETA [id number] TRIP#[id number]
--- NOTE | 2019-01-30 22:19 | NUR ---
REPORT GIVEN TO FENG STRICKLAND FOR ELLIS AT [facility].
--- NOTE | 2019-01-30 22:28 | NUR ---
AMBULANZ AT BEDSIDE FOR PT TRANPSOT BACK TO HER FACILITY. PT IS STABLE FOR TRANSPORT. NAD NOTED. REPORT GIVEN
[2019-01-30 22:29] VITALS: BP 151/86
== END 2019-01-30 22:30 | disposition home or self-care (01) ==
LOC: ER 17:11
DX: M79.602 Pain in left arm (principal); Z46.89 Encounter for fitting and adjustment of other specified devices; I50.9 Heart failure, unspecified; J44.9 Chronic obstructive pulmonary disease, unspecified; G89.29 Other chronic pain; M79.7 Fibromyalgia; F12.90 Cannabis use, unspecified, uncomplicated; F28 Other psychotic disorder not due to a substance or known physiological condition; Z98.890 Other specified postprocedural states; Z88.0 Allergy status to penicillin; Z88.2 Allergy status to sulfonamides; Z88.1 Allergy status to other antibiotic agents; Z79.899 Other long term (current) drug therapy
CPT/HCPCS: 29105; 36415; 80048; 82550; 83605; 85025; 96374; 96375; 96376; 99283; J1170 ×2; J2270

== ENCOUNTER 2019-07-05 10:55 | Inpatient (IN) | payer MEDICARE, MEDICAID ==
[~2019-07-05] VITALS: Ht 152.4 cm; Wt 38.6 kg
[~2019-07-05 10:55] MED LIST changes: +ACET-868 PO; +BUPR1TAB58 SL; -BUSP10TA35 PO; +CALC-883 PO; +CLON0.5T PO; +CRAN450C PO; +DOCU-141 PO; -ESCI20TA PO; +HYDR-4354 PO; -PANT40TA2 PO; -QUET25TA PO; +TEMA15CA5 PO
--- NOTE | 2019-07-05 11:10 | NUR ---
PT BIB VIA ACCESS VAN SENT BY PMD FOR MED CLEARANCE AND BACK PAIN, PT IS AAOX3, NOT IN RESPIRATORY DISTRESS, HOOKED TO MONITOR, KEPT RESTED AND COMFORTABLE, WILL CONTNUE TO MONITOR.
--- NOTE | 2019-07-05 11:16 | NUR ---
PT SEEN AND EXAMINED BY .
[2019-07-05] MEDS ORDERED: IV NS 0.9% 1,000 ML BAG IV ONE (11:30)
--- NOTE | 2019-07-05 11:30 | NUR ---
IV LINE ESTABLISHED, BLOOD DRAWN AND SENT TO LAB.
[2019-07-05 11:38] LABS: BASOPHILS # (AUTO) 0.1 /CMM (0.0-0.2); BASOPHILS % (AUTO) 0.4 % (0.0-2.0); EOSINOPHILS % (AUTO) 0.8 % (0.0-6.0); HEMATOCRIT 31 % (33-45); HEMOGLOBIN 9.9 g/dL (11.5-14.8); LYMPHOCYTES % (AUTO) 14.9 % (20.0-44.0); MEAN CORPUSCULAR HGB CONC 32 g/dl (31.0-36.0); MEAN CORPUSCULAR VOLUME 91 fL (82-100); MONOCYTES # (AUTO) 0.8 /CMM (0.1-1.30); MONOCYTES % (AUTO) 6.1 % (2.0-12.0); NEUTROPHILS # (AUTO) 10.7 /CMM (1.8-8.9); NEUTROPHILS % (AUTO) 77.8 % (43.0-81.0); PLATELET COUNT (AUTO) 769 /CMM (150-450); RED BLOOD CELL COUNT(AUTO) 3.39 MIL/uL (4.0-5.2); WHITE BLOOD COUNT (AUTO) 13.8 K/uL (4.3-11.0)
[2019-07-05] MEDS ORDERED: CLON0.1T14 PO (11:41)
[2019-07-05] MEDS ORDERED: ESCI10TA PO (11:41)
[2019-07-05] MEDS ORDERED: GABA-534 PO ×2 (11:41)
[2019-07-05] MEDS ORDERED: PANT40TA2 PO (11:41)
[2019-07-05] MEDS ORDERED: CALC-7 PO (11:41)
[2019-07-05] MEDS ORDERED: ASCO500T9 PO (11:41)
[2019-07-05] MEDS ORDERED: NICO-676 TD (11:41)
[2019-07-05] MEDS ORDERED: BUPR2TAB3 SL (11:41)
[2019-07-05] MEDS ORDERED: HYDR-4384 PO (11:41)
[2019-07-05] MEDS ORDERED: ALBU2.5V38 IH (11:41)
[2019-07-05] MEDS ORDERED: QUET25TA PO (11:41)
[2019-07-05] MEDS ORDERED: MEGE400O6 PO (11:41)
[2019-07-05 11:43] LABS: CALCIUM, SERUM 9.5 mg/dL (8.5-10.1); CARBON DIOXIDE 27 mmol/L (21-32); CHLORIDE 101 mmol/L (98-107); CREATININE 0.6 mg/dL (0.6-1.3); GLUCOSE 96 mg/dL (74-106); POTASSIUM 3.5 mmol/L (3.5-5.1); SODIUM SERUM 139 mmol/L (136-145); UREA NITROGEN, BLOOD 10 mg/dL (7-18)
[2019-07-05 11:52] LABS: ALANINE AMINOTRANSFERASE 10 U/L (12-78); ALBUMIN 2.9 g/dL (3.4-5.0); ALKALINE PHOSPHATASE 138 U/L (46-116); ASPARTATE AMINOTRANSFERASE 15 U/L (15-37); BILIRUBIN,DIRECT 0.1 mg/dL (0.0-0.2); BILIRUBIN,TOTAL 0.3 mg/dL (0.2-1.0); TOTAL PROTEIN, SERUM 7.1 g/dL (6.4-8.2)
[2019-07-05 11:52] LABS: APPEARANCE,URINE Clear (CLEAR); BILIRUBIN,URINE SMALL (NEGATIVE); BLOOD, URINE Trace-intact Ery/uL (NEGATIVE); COLOR,URINE Yellow (YELLOW); KETONES,URINE Negative (NEGATIVE); LEUKOCYTE ESTERASE ,URINE Negative (NEGATIVE); NITRITE, URINE Negative (NEGATIVE); PROTEIN,URINE Negative (NEGATIVE); UGLUCOSE Negative (NEGATIVE)
[2019-07-05 12:07] LABS: BACTERIA,URINE Many /HPF (None Seen); RBC,URINE 0-2 /HPF (0-2); SQUAMOUS EPITHELIAL CELL,UR Many /HPF (None Seen); WBC,URINE 0-2 /HPF (0-3)
--- NOTE | 2019-07-05 13:01 | NUR ---
URINE SPECIMEN COLLECTED AND SENT TO LAB.
--- NOTE | 2019-07-05 13:15 | NUR ---
REPORT GIVEN TO FENG MCKNIGHT FOR ELLIS.
[2019-07-05 14:29] LABS: LYMPHOCYTES % (MANUAL) 15 % (16-48); MONOCYTES % (MANUAL) 5 % (0-11.0); NEUTROPHILS % (MANUAL) 80 (42-76)
--- NOTE | 2019-07-05 14:45 | NUR ---
delivery analyst Notes-New Admission Patient transferred to first floor via ED. Patient in stable condition. Complains of severe back pain at this time, Tylenol 650mg given PRN pain. MD Gutierrez aware, PRN Suboxone and Tylenol ordered for pain at this time. Pharmacy does not have suboxone. Will try to obtain rx from care manager. VS 166/98, 96 Pulse, 16 RR, and 95 O2. Patient oriented to unit and asked if she has any needs to be met at this time. Bed in lowest position, call light within reach, all measures taken to ensure client safety. Will continue to monitor for pain.
[2019-07-05] MEDS: NICOTINE PATCH (21MG) 21 MG PATCH.TD24 TD SCH (15:00)
[2019-07-05] MEDS ORDERED: BUPRENORPHINE HCL 2 MG TAB.SUBL SL PRN ×2 (15:00→15:30)
[2019-07-05] MEDS ORDERED: PANTOPRAZOLE 40 MG TABLET.DR PO PRN (15:30)
[2019-07-05] MEDS ORDERED: ALBUTEROL FS 2.5 MG/3 ML VIAL.NEB NEB PRN (15:30)
[2019-07-05] MEDS ORDERED: GABAPENTIN 300 MG CAPSULE PO PRN (15:30)
[2019-07-05] MEDS ORDERED: QUETIAPINE FUMARATE 25 MG TABLET PO PRN (15:30)
[2019-07-05 16:00] VITALS: BP 166/98
[2019-07-05] MEDS: ACETAMINOPHEN 325 MG TABLET PO PRN ×2 (16:06→21:25)
[2019-07-05] MEDS: MEGESTROL ACETATE SUSP 400 MG/10 ML UDC PO SCH (18:17)
[2019-07-05] MEDS: CALCIUM CARB 600MG /VIT D 1 EACH TABLET PO SCH (18:17)
[2019-07-05] MEDS: GABAPENTIN 300 MG CAPSULE PO SCH (18:18)
[2019-07-05] MEDS: DOCUSATE SODIUM 100 MG CAPSULE PO SCH (18:18)
[2019-07-05] MEDS: busPIRone 5 MG TABLET PO SCH (18:18)
[2019-07-05] MEDS: NEOMY SULF/BACITRAC ZN/POLY 15 GM TUBE TP SCH (18:30)
--- NOTE | 2019-07-05 18:55 | NUR ---
curriculum and assessment director Notes Patient given medications complained of nausea. MD Gutierrez informed and Zofran 4mg IVP ordered. Zofran administered, will continue to monitor.
[2019-07-05] MEDS ORDERED: ONDANSETRON HCL/PF 4 MG/2 ML VIAL IV PRN (19:00)
[2019-07-05] MEDS ORDERED: ONDANSETRON 4 MG TAB.RAPDIS PO PRN (19:00)
--- NOTE | 2019-07-05 19:22 | NUR ---
plastic surgery specialist Notes - Closing Patient is in bed resting. Still c/o nausea after IVP medication. Environment made quiet and removed stimuli. Tylenol given x1 with effective relief,. Endorsed the need to night auditor to follow up on nausea relief and pain. Caregiver Casper called at around 1830 to bring suboxone medication. He refused to bring medication yelling over phone conversation "[facility], I'm not getting up to bring medication that you guys should have." MD informed. Bed in lowest position, call light within reach, all measures taken to ensure client safety. RN hand off completed with Jasmin at bedside. Communicated need for in and out cath with urine culture. Skin issues communicated on hand out, night auditor aware of skin issues.
--- NOTE | 2019-07-05 19:28 | NUR ---
FLEET MANAGER/DISPATCH OPENING NOTES PATIENT RECEIVED RESTING IN BED, A/O 3. STABLE ON RA WITH BREATHING EVEN AND UNLABORED, NO SOB NOTED. NO SIGNS OF ACUTE DISTRESS. NO CURRENT COMPLAINTS OF PAIN OR DISCOMFORT. IV LOCATED ON R FOREARM #20. SAFETY PRECAUTIONS IN PLACE WITH BED IN LOWEST POSITION, CALL LIGHT WITHIN REACH, AND BREAKS ON. WILL CONTINUE TO MONITOR.
[2019-07-05 20:00] VITALS: BP 113/66
[2019-07-05] MEDS ORDERED: ENOXAPARIN SODIUM 30 MG/0.3 ML DISP.SYRIN SQ SCH (21:00)
[2019-07-05] MEDS: ENOXAPARIN SODIUM 40 MG/0.4 ML DISP.SYRIN SQ SCH (21:00)
--- NOTE | 2019-07-05 21:29 | NUR ---
MEDICAL AUDITOR NOTES PATIENT REFUSED ENOXAPARIN SHOT. TOLD HER THE REASON FOR THE MEDICATION AND EDUCATED HER, BUT PATIENT STILL REFUSED. WILL CONTINUE TO MONITOR.
[2019-07-05] MEDS: HYDROCODONE/APAP 5/325MG 1 EACH TABLET PO PRN (22:58)
--- NOTE | 2019-07-05 23:10 | NUR ---
END FINDER FORMING DEPARTMENT NOTES PATIENT FEELING 10/10 BACK PAIN ACHING GAVE PRN NORCO 5-325. PATIENT ALSO FEELING HEART BURN, ADMINISTERED PROTONIX 2308. WILL CONTINUE TO MONITOR.
[2019-07-06] VITALS: BP 153/84
[2019-07-06 04:00] VITALS: BP 164/85
--- NOTE | 2019-07-06 06:44 | NUR ---
ANIMAL WARDEN CLOSING NOTES PATIENT RESTING IN BED A/O X4. STABLE ON RA WITH BREATHING EVEN AND UNLABORED, NO SOB NOTED. NO SIGNS OF ACUTE DISTRESS. NO CURRENT COMPLAINTS OF PAIN OR DISCOMFORT. TELE MONITOR READING SR IN THE 70'S. IV LOCATED ON RFA #20 SL. ALL NEEDS WERE ATTENDED TO THROUGHOUT THE NIGHT. PATIENT KEPT CLEAN AND DRY. SAFETY PRECAUTIONS IN PLACE WITH BED IN LOWEST POSITION, CALL LIGHT WITHIN REACH, BREAKS ON, AND SIDE RAILS UP. WILL ENDORSE TO ONCOMING SHIFT ABOTU ELLIS.
--- NOTE | 2019-07-06 07:03 | NUR ---
LOCKSTITCH CUP SETTER OPENING NOTE RECEIVED BEDSIDE REPORT. PT AWAKE IN BED, ALERT AND ORIENTED X 4, ON ROOM AIR, SATURATING WELL, RESPIRATIONS EVEN AND UNLABORED, NO SIGNS OF RESPIRATORY DISTRESS NOTED. SINUS RHYTHM ON TELE MONITOR. IV SITE ON RIGHT FOREARM G20 INTACT, PATENT, WITH HEP LOCK IN PLACE. BED IN LOW POSITION, LOCKED, CALL LIGHT WITHIN REACH. INTRODUCED SELF TO PT AND DISCUSSED PLAN OF CARE.
[2019-07-06 07:17] LABS: BASOPHILS % (AUTO) 0.4 % (0.0-2.0); EOSINOPHILS % (AUTO) 1.6 % (0.0-6.0); HEMATOCRIT 27 % (33-45); HEMOGLOBIN 8.6 g/dL (11.5-14.8); LYMPHOCYTES # (AUTO) 2.8 /CMM (0.8-4.8); LYMPHOCYTES % (AUTO) 23.8 % (20.0-44.0); MEAN CORPUSCULAR HGB CONC 33 g/dl (31.0-36.0); MEAN CORPUSCULAR VOLUME 90 fL (82-100); MONOCYTES # (AUTO) 0.8 /CMM (0.1-1.30); MONOCYTES % (AUTO) 6.9 % (2.0-12.0); NEUTROPHILS # (AUTO) 7.9 /CMM (1.8-8.9); NEUTROPHILS % (AUTO) 67.3 % (43.0-81.0); PLATELET COUNT (AUTO) 624 /CMM (150-450); RED BLOOD CELL COUNT(AUTO) 2.95 MIL/uL (4.0-5.2); WHITE BLOOD COUNT (AUTO) 11.8 K/uL (4.3-11.0)
[2019-07-06 07:33] LABS: IRON, SERUM 17 ug/dl (50-175); TOTAL IRON BINDING CAPACITY 150 ug/dl (250-450)
[2019-07-06 08:00] VITALS: BP 153/83
[2019-07-06] MEDS: ASCORBIC ACID 500 MG TABLET PO SCH (08:22)
[2019-07-06] MEDS: NICOTINE PATCH (21MG) 21 MG PATCH.TD24 TD SCH (08:22)
[2019-07-06] MEDS: MEGESTROL ACETATE SUSP 400 MG/10 ML UDC PO SCH ×2 (08:22→16:51)
[2019-07-06] MEDS: DOCUSATE SODIUM 100 MG CAPSULE PO SCH ×2 (08:22→16:51)
[2019-07-06] MEDS: GABAPENTIN 300 MG CAPSULE PO SCH ×3 (08:22→16:52)
[2019-07-06] MEDS: CALCIUM CARB 600MG /VIT D 1 EACH TABLET PO SCH ×2 (08:22→16:51)
[2019-07-06] MEDS: busPIRone 5 MG TABLET PO SCH ×2 (08:22→16:51)
[2019-07-06] MEDS ORDERED: NICOTINE PATCH (21MG) 21 MG PATCH.TD24 TD SCH (09:00)
[2019-07-06] MEDS ORDERED: ENOXAPARIN SODIUM 30 MG/0.3 ML DISP.SYRIN SQ SCH (09:00)
[2019-07-06] MEDS: clonazePAM 0.5 MG TABLET PO PRN ×2 (09:51→23:14)
[2019-07-06] MEDS: NEOMY SULF/BACITRAC ZN/POLY 15 GM TUBE TP SCH ×2 (10:44→17:23)
--- NOTE | 2019-07-06 10:44 | NUR ---
ADMINISTERED SCHEDULED 0900 NEOSPORIN OINTMENT LATE DUE TO PHARMACY NOT BEING ABLE TO SUPPLY MEDICATION UNTIL 10:44.
[2019-07-06] MEDS: ENSURE ENLIVE CHOC 237 ML CAN PO SCH ×2 (12:21→17:24)
[2019-07-06] MEDS: HYDROCODONE/APAP 5/325MG 1 EACH TABLET PO PRN ×2 (12:24→16:52)
[2019-07-06] MEDS: CLONIDINE HCL 0.1 MG TABLET PO PRN (12:24)
[2019-07-06] MEDS: ESCITALOPRAM OXALATE (10 MG) 10 MG TABLET PO SCH (12:24)
[2019-07-06] MEDS: FERROUS SULFATE (325 MG) 325 MG/TAB TABLET PO SCH ×2 (12:25→16:51)
[2019-07-06 16:00] VITALS: BP 109/66
[2019-07-06 20:00] VITALS: BP 112/73
[2019-07-06] MEDS: ENOXAPARIN SODIUM 40 MG/0.4 ML DISP.SYRIN SQ SCH ×2 (20:37→20:41)
--- NOTE | 2019-07-06 20:41 | NUR ---
PT REFUSED SCHEDULED LOVENOX X 3. EXPLAINED THE RISKS OF NOT TAKING PRESCRIBED MEDICATION, EXPLAINED WHY THE MEDICATION IS PRESCRIBED, ITS PURPOSE. PT STILL REFUSED.
[2019-07-07] VITALS: BP 116/80
[2019-07-07] MEDS: HYDROCODONE/APAP 5/325MG 1 EACH TABLET PO PRN ×5 (00:46→21:53)
--- NOTE | 2019-07-07 00:46 | NUR ---
UNABLE TO SCAN BARCODE FOR NORCO- ENTERED MANUAL BARCODE IN JUL.
[2019-07-07 07:36] LABS: BASOPHILS % (AUTO) 0.4 % (0.0-2.0); EOSINOPHILS % (AUTO) 1.4 % (0.0-6.0); HEMATOCRIT 24 % (33-45); LYMPHOCYTES # (AUTO) 1.9 /CMM (0.8-4.8); LYMPHOCYTES % (AUTO) 25.1 % (20.0-44.0); MEAN CORPUSCULAR HGB CONC 33 g/dl (31.0-36.0); MEAN CORPUSCULAR VOLUME 90 fL (82-100); MONOCYTES # (AUTO) 0.5 /CMM (0.1-1.30); MONOCYTES % (AUTO) 6.7 % (2.0-12.0); NEUTROPHILS % (AUTO) 66.4 % (43.0-81.0); PLATELET COUNT (AUTO) 578 /CMM (150-450); RED BLOOD CELL COUNT(AUTO) 2.71 MIL/uL (4.0-5.2); WHITE BLOOD COUNT (AUTO) 7.5 K/uL (4.3-11.0)
[2019-07-07 07:59] LABS: ALBUMIN 1.8 g/dL (3.4-5.0); BILIRUBIN,TOTAL 0.2 mg/dL (0.2-1.0); CALCIUM, SERUM 7.8 mg/dL (8.5-10.1); CREATININE 0.7 mg/dL (0.6-1.3); POTASSIUM 3.2 mmol/L (3.5-5.1); TOTAL PROTEIN, SERUM 5.1 g/dL (6.4-8.2)
[2019-07-07 08:00] VITALS: BP 112/63
[2019-07-07] MEDS: ENSURE ENLIVE CHOC 237 ML CAN PO SCH ×3 (08:00→17:07)
[2019-07-07 08:07] LABS: THYROID STIMULATING HORMONE 1.498 uIU/mL (0.358-3.74)
[2019-07-07] MEDS: DOCUSATE SODIUM 100 MG CAPSULE PO SCH ×2 (09:15→17:03)
[2019-07-07] MEDS: NEOMY SULF/BACITRAC ZN/POLY 15 GM TUBE TP SCH ×2 (09:15→17:07)
[2019-07-07] MEDS: NICOTINE PATCH (21MG) 21 MG PATCH.TD24 TD SCH (09:15)
[2019-07-07] MEDS: MEGESTROL ACETATE SUSP 400 MG/10 ML UDC PO SCH ×2 (09:15→17:02)
[2019-07-07] MEDS: busPIRone 5 MG TABLET PO SCH ×2 (09:16→17:02)
[2019-07-07] MEDS: ASCORBIC ACID 500 MG TABLET PO SCH (09:16)
[2019-07-07] MEDS: GABAPENTIN 300 MG CAPSULE PO SCH ×3 (09:16→17:02)
[2019-07-07] MEDS: CALCIUM CARB 600MG /VIT D 1 EACH TABLET PO SCH ×2 (09:17→17:02)
[2019-07-07] MEDS: FERROUS SULFATE (325 MG) 325 MG/TAB TABLET PO SCH ×2 (09:19→17:02)
[2019-07-07] MEDS: POTASSIUM CHLORIDE 20 MEQ TAB.PRT.SR PO SCH ×2 (10:55→10:56)
--- NOTE | 2019-07-07 11:33 | NUR ---
alert, oriented, appetite good with supplement Ensure each meal. Continue to ask for pain med, NORCO 5/325mg po given at 11am with relief. Level care downgrade, transferred 2nd floor
--- NOTE | 2019-07-07 11:35 | NUR ---
M/S IT HELP DESK ASSOCIATE NOTES RECEIVED PT ON BED TRANSPORTED BY 2 RN TO [facility]. PT A/OX3, ABLE TO COMMUNICATE WELL, RESPONSIVE TO ALL STIMULI. SKIN WARM TO TOUCH AND DRY. RESPIRATION EVEN AND NON LABORED WITH NO ACUTE RESPIRATORY DISTRESS. ABDOMEN SOFT AND NON DISTENDED WITH ACTIVE BOWEL SOUNDS, ON DIAPER CLEAN AND DRY. NORCO GIVEN AT 1055 AT [facility] FOR BACK PAIN, CONTINUE TO ASSESS. IV SITE AT RIGHT FOREARM #20 H/L, PATENT IN FLUSHING, NO S/SX ON INFILTRATION. CALL LIGHT WITHIN REACH, BED IN LOW LOCKED POSITION. ALL CONCERNS ATTENDED. WILL CONTINUE TO EVALUATE CARE.
[2019-07-07 11:45] VITALS: BP 130/77
[2019-07-07] MEDS: ESCITALOPRAM OXALATE (10 MG) 10 MG TABLET PO SCH (12:53)
[2019-07-07 16:00] VITALS: BP 123/86
--- NOTE | 2019-07-07 16:13 | NUR ---
M/S RN NOTES RECEIVED A CALL FROM FILIBERTO FROM THE PHARMACY, BUPRENORPHINE HCL IS NOT AVAILABLE IN THE HOSPITAL. CALLED LOYDA (CAREGIVER), HE STATED THAT NOBODY CAN DELIVER IT CAUSE HE IS ON DISABILITY AND UNABLE TO DRIVE. PT HAS NO FAMILY MEMBER AVAILABLE IN THE AREA. INFORMED FILIBERTO FROM THE PHARMACY.
--- NOTE | 2019-07-07 16:50 | NUR ---
M/S RN NOTES PT SEEN AND EVALUATED BY DR. CALLE
[2019-07-07] MEDS: MULTIVIT W/MINERALS 1 TAB TABLET PO SCH (17:02)
--- NOTE | 2019-07-07 19:23 | NUR ---
M/S RN CLOSING NOTES PT A/OX3, COMFORTABLY SLEEPING AND EASILY AROUSABLE. NO PRESENCE OF ACUTE RESPIRATORY DISTRESS. SKIN WARM TO TOUCH AND DRY. DENIES PAIN AT THIS TIME. IV SITE AT RIGHT FOREARM #20 H/L, PATENT IN FLUSHING, NO S/SX ON INFILTRATION. CALL LIGHT WITHIN REACH, BED IN LOW LOCKED POSITION. ALL CONCERNS ATTENDED. ENDORSED PT CARE TO NEXT SHIFT
[2019-07-07 20:43] VITALS: BP 118/70
[2019-07-07] MEDS: ENOXAPARIN SODIUM 40 MG/0.4 ML DISP.SYRIN SQ SCH (21:00)
[2019-07-07] MEDS: clonazePAM 0.5 MG TABLET PO PRN ×2 (21:46→22:37)
[2019-07-08] MEDS: HYDROCODONE/APAP 5/325MG 1 EACH TABLET PO PRN ×2 (04:18→18:43)
--- NOTE | 2019-07-08 06:00 | NUR ---
M/S RN CLOSING NOTES PT A/OX3,APPEARS TO BE SLEEPING AND EASILY AROUSABLE BY TOUCH AND VOICE.. NO PRESENCE OF ACUTE RESPIRATORY DISTRESS. SKIN WARM TO TOUCH AND DRY. IV SITE AT RIGHT FOREARM #20 H/L, PATENT IN FLUSHING, NO S/SX ON INFILTRATION. CALL LIGHT WITHIN REACH, BED IN LOW LOCKED POSITION. ALL CONCERNS ATTENDED.
[2019-07-08 06:49] LABS: BASOPHILS # (AUTO) 0.1 /CMM (0.0-0.2); BASOPHILS % (AUTO) 0.7 % (0.0-2.0); EOSINOPHILS % (AUTO) 0.5 % (0.0-6.0); HEMATOCRIT 27 % (33-45); HEMOGLOBIN 8.8 g/dL (11.5-14.8); LYMPHOCYTES # (AUTO) 2.5 /CMM (0.8-4.8); LYMPHOCYTES % (AUTO) 16.6 % (20.0-44.0); MEAN CORPUSCULAR HGB CONC 33 g/dl (31.0-36.0); MEAN CORPUSCULAR VOLUME 90 fL (82-100); MONOCYTES % (AUTO) 6.9 % (2.0-12.0); NEUTROPHILS # (AUTO) 11.2 /CMM (1.8-8.9); NEUTROPHILS % (AUTO) 75.3 % (43.0-81.0); PLATELET COUNT (AUTO) 685 /CMM (150-450); RED BLOOD CELL COUNT(AUTO) 2.97 MIL/uL (4.0-5.2); WHITE BLOOD COUNT (AUTO) 14.9 K/uL (4.3-11.0)
[2019-07-08 07:06] LABS: CREATININE 0.6 mg/dL (0.6-1.3); POTASSIUM 3.7 mmol/L (3.5-5.1)
--- NOTE | 2019-07-08 07:29 | NUR ---
MS RN OPENING NOTES RECEIVED PT AWAKE IN BED IN NO ACUTE SIGNS OF DISTRESS. ALERT AND ORIENTED X 3, VERBALLY RESPONSIVE, DENIES PAIN OR ANY DISCOMFORTS AT THIS TIME. ON ROOM AIR, RESPIRATIONS EVEN AND UNLABORED. IV SL ON RIGHT FOREARM G#20 INTACT, PATENT AND FLUSHES WELL. SAFETY MEASURES IN P[LACE: BED IN LOW POSITION, LOCKED, CALL LIGHT WITHIN REACH. WILL CONTINUE TO MONITOR..
[2019-07-08] MEDS: ENSURE ENLIVE CHOC 237 ML CAN PO SCH ×3 (07:46→17:05)
[2019-07-08] MEDS: MEGESTROL ACETATE SUSP 400 MG/10 ML UDC PO SCH ×2 (08:20→16:56)
[2019-07-08] MEDS: DOCUSATE SODIUM 100 MG CAPSULE PO SCH ×2 (08:20→16:56)
[2019-07-08] MEDS: GABAPENTIN 300 MG CAPSULE PO SCH ×3 (08:20→16:57)
[2019-07-08] MEDS: MULTIVIT W/MINERALS 1 TAB TABLET PO SCH (08:20)
[2019-07-08] MEDS: ASCORBIC ACID 500 MG TABLET PO SCH (08:20)
[2019-07-08] MEDS: FERROUS SULFATE (325 MG) 325 MG/TAB TABLET PO SCH ×2 (08:20→16:57)
[2019-07-08] MEDS: busPIRone 5 MG TABLET PO SCH ×2 (08:20→16:56)
[2019-07-08] MEDS: CALCIUM CARB 600MG /VIT D 1 EACH TABLET PO SCH ×2 (08:20→16:57)
[2019-07-08] MEDS: NICOTINE PATCH (21MG) 21 MG PATCH.TD24 TD SCH (08:20)
[2019-07-08] MEDS: NEOMY SULF/BACITRAC ZN/POLY 15 GM TUBE TP SCH ×2 (08:21→16:57)
[2019-07-08 08:50] VITALS: BP 164/98
--- NOTE | 2019-07-08 09:06 | NUR ---
WOUND CARE CONSULT: PT PRESENTS WITH LEFT LOWER LEG SKIN TEAR AND DISCOLORED TOES WITH DRY ABRASIONS, PRESENT ON ADMISSION. RECOMMEND DPM CONSULT. DR MANZO NOTIFIED OF CONSULT REQUEST. PT NOTED TO HAVE BONY SACRAL AREA WITH SACRAL DIMPLE, PRESENT ON ADMISSION. RECOMMENDATIONS MADE FOR SKIN PROTECTION. DISCUSSED WITH NURSING STAFF. WILL SEE PRN. GARZA IN AGREEMENT WITH PLAN OF CARE. Addendum: 07/08/19 at 0910 by VOLODYMYR QUEEN WNDNU Amended: Links added.
[2019-07-08] MEDS ORDERED: Z GUARD REMEDY 2 OZ OINT TP PRN (09:30)
[2019-07-08] MEDS: Z GUARD REMEDY 2 OZ OINT TP SCH (09:40)
[2019-07-08] MEDS: ESCITALOPRAM OXALATE (10 MG) 10 MG TABLET PO SCH (12:15)
[2019-07-08] MEDS: clonazePAM 0.5 MG TABLET PO PRN ×2 (13:46→20:40)
--- NOTE | 2019-07-08 13:50 | NUR ---
RN NOTES PT VERY ANXIOUS AND GIVEN KLONOPIN 0.5MG TAB PO AT 1346. WILL CONTINUE TO MONITOR
[2019-07-08] MEDS: CLONIDINE HCL 0.1 MG TABLET PO PRN (15:08)
[2019-07-08 16:26] VITALS: BP 146/82
--- NOTE | 2019-07-08 17:02 | NUR ---
RN NOTES CALLED PT'S CAREGIVER LOYDA US REGARDING PT'S MED BUPRENORPHINE HCL 2MG TAB SL AND SAID THAT IT'S IN THE PT'S PHARMACY AND UNABLE TO GO AND PICK IT UP.
--- NOTE | 2019-07-08 18:44 | NUR ---
RN NOTES/PAIN MANAGEMENT PT C/O PAIN ON LOWER MID BACK WITH SCALE OF 6/10, PRN NORCO 5/325MG PO GIVEN AT 1843. WILL CONTINUE TO MONITOR AND REASSESS PT.
--- NOTE | 2019-07-08 18:51 | NUR ---
MS RN CLOSING NOTES PATIENT SITTING ON CHAIR BY BEDSIDE AT THIS TIME. A/O X4. ABLE TO MAKE NEEDS KNOWN. AMBULATORY WITH STEADY GAIT. ON CLINICAL TRIAL, NO INAPPROPRIATE BEHAVIOR NOTED DURING SHIFT. SEN BY DR JEAN . PT ON NPO AFTER 2100, CONTINUE LAST DOSE OF CLINICAL TRIAL MED TONIGHT AND HOLD LORAZEPAM AT 2300. CALL LIGHT WITHIN REACH. ON ROOM AIR, TOLERATING WELL WITH NO ACUTE DISTRESS NOTED THROUGHOUT THE DAY. ALL NEEDS AND CARE ATTENDED WELL. WILL ENDORSE TO PULP MIXER NURSE FOR ELLIS
--- NOTE | 2019-07-08 18:52 | NUR ---
MS RN CLOSING NOTES PT IN BED AWAKE AND WATCHING TV AT THIS TIME. A/O X 3. ABLE TO MAKE NEEDS KNOWN. ON ROOM AIR, RESPIRATIONS EVEN AND UNLABORED, NO SOB NOTED DURING THE DAY. IV SL ON RIGHT FOREARM G#20 INTACT, PATENT AND FLUSHES WELL. PT TURNED AND REPOSITIONED Q 2HRS AND PRN/. KEPT CLEAN DRY AND COMFORTABLE. SAFETY MEASURES IN PLACE: BED IN LOW POSITION, LOCKED, CALL LIGHT WITHIN REACH. ALL NEEDS AND CARE ATTENDED WELL. DR CALLE JUST CAME WITH ORDER TO GIVE MOM AT HS AND IF PT WILL NOT DO BOWEL MOVEMENT DURING THE NIGHT, THEN ORDER BISACODYL 10MG PO X1 DOSE. WILL ENDORSE TO AMUSEMENT EQUIPMENT OPERATOR NURSE FOR ELLIS.
[2019-07-08] MEDS ORDERED: MAGNESIUM HYDROXIDE 30 ML UDC PO PRN (19:00)
--- NOTE | 2019-07-08 19:15 | NUR ---
MS RN OPENING NOTES BEDSIDE REPORT RECIEVED FROM DAYNE TONEY. PT A/O X 3. ABLE TO MAKE NEEDS KNOWN. REVEIWED POC QUESTIONS CONCERNS ADDERSSED. PT ON ROOM AIR, RESPIRATIONS EVEN AND UNLABORED, IN NO APPARENT RESP DISTRESS. IV SL ON RIGHT FOREARM G#20 INTACT, PATENT AND FLUSHED. SAFETY MEASURES IN PLACE: BED IN LOW POSITION, LOCKED, CALL LIGHT WITHIN REACH. ALL NEEDS AND CARE ATTENDED WELL. PATIENT IS CONSTIPATED AND NEW ORDERS WERE RECENTLY GIVEN TO RELIEVE CONSTIPATION AND TO COLLECT STOOL SAMPLE.
[2019-07-08 20:24] VITALS: BP 139/81
[2019-07-08] MEDS: ENOXAPARIN SODIUM 40 MG/0.4 ML DISP.SYRIN SQ SCH (20:41)
[2019-07-09] MEDS ORDERED: BISACODYL SUPP (10 MG) 10 MG/SUPP.RECT SUPP.RECT RC ONE (01:00)
--- NOTE | 2019-07-09 01:02 | NUR ---
Dr. hardin paged, patient is severely constipated and is having a lot of pain tryiing to pass stool. after sitting on the commode she was able to pass some by giving hersel digital disimpaction but feels there is more still inside. patient was offered dulcolax suppository as it was planned to be given if mom was ineffective but she refused. patient is demanding aenema to help pass stool. will await call back from .
--- NOTE | 2019-07-09 01:32 | NUR ---
Dr. Gutierrez paged in reguards to patients consptipation. patient offered dulcolax suppository again. patient still reporting stomach cramps and discomfort. pt in room crying stating, "I want an aenema. I don't know why you havent called Dr. nichols yet." patient informed the doctor has repaged and will cont to await a return call.
[2019-07-09] MEDS: HYDROCODONE/APAP 5/325MG 1 EACH TABLET PO PRN ×3 (02:20→14:34)
--- NOTE | 2019-07-09 02:20 | NUR ---
dr. hardin has not called back. patient agreed to try dulcolax suppository at this time. patient medicated with norco. answering service called back to inquire about if md had called back informed she hasn't but request cancelled. informed that will call again if needed.
[2019-07-09] MEDS ORDERED: BISACODYL (5 MG) 5 MG TABLET.DR PO ONE (04:00)
--- NOTE | 2019-07-09 04:38 | NUR ---
patient has had 2 bm since being given mom and suppository. dulcolax po missed dose.
[2019-07-09] MEDS: clonazePAM 0.5 MG TABLET PO PRN ×3 (04:49→14:34)
--- NOTE | 2019-07-09 04:55 | NUR ---
patient requesting klonpin for anxiety. patient still requesting to have aenema performed. informed patient that I will page doctor later this am as it is not an emergency. pt states "no please page her now this is an emergency, i cant push it out and it feels like my stomach is going to explode.
--- NOTE | 2019-07-09 05:10 | NUR ---
DR. CALLE CALLED REQUESTED CALL BACK FROM ANSWERING SERVICE. WILL AWAIT RETURN CALL.
--- NOTE | 2019-07-09 06:15 | NUR ---
called dr. hardin called answering service spoke with iva. states she will page the doctor for a return call.
[2019-07-09 06:34] LABS: OCCULT BLOOD STOOL POSITIVE (NEGATIVE)
[2019-07-09] MEDS ORDERED: NA PHOS,M-B/NA PHOS,DI-BA 1 EA ENEMA RC PRN (07:30)
[2019-07-09 08:00] VITALS: BP 151/81
--- NOTE | 2019-07-09 08:00 | NUR ---
RN MS NOTES PT IN BED, RESTING, ALERT AND ORIENTED, NO COMPLAINT AT THIS TIME, RESPIRATIONS NORMAL, CALL LIGHT WITHIN REACH, KEPT WARM AND COMFORTABLE IN BED.
[2019-07-09] MEDS: MEGESTROL ACETATE SUSP 400 MG/10 ML UDC PO SCH ×2 (09:31→16:33)
[2019-07-09] MEDS: GABAPENTIN 300 MG CAPSULE PO SCH ×3 (09:31→16:33)
[2019-07-09] MEDS: FERROUS SULFATE (325 MG) 325 MG/TAB TABLET PO SCH ×2 (09:31→16:33)
[2019-07-09] MEDS: CALCIUM CARB 600MG /VIT D 1 EACH TABLET PO SCH ×2 (09:31→16:38)
[2019-07-09] MEDS: ENSURE ENLIVE CHOC 237 ML CAN PO SCH ×3 (09:31→16:33)
[2019-07-09] MEDS: NICOTINE PATCH (21MG) 21 MG PATCH.TD24 TD SCH (09:31)
[2019-07-09] MEDS: MULTIVIT W/MINERALS 1 TAB TABLET PO SCH (09:31)
[2019-07-09] MEDS: busPIRone 5 MG TABLET PO SCH ×2 (09:31→16:38)
[2019-07-09] MEDS: ASCORBIC ACID 500 MG TABLET PO SCH (09:31)
[2019-07-09] MEDS: DOCUSATE SODIUM 100 MG CAPSULE PO SCH ×2 (09:31→16:38)
[2019-07-09] MEDS: NEOMY SULF/BACITRAC ZN/POLY 15 GM TUBE TP SCH ×2 (09:46→16:49)
[2019-07-09] MEDS: Z GUARD REMEDY 2 OZ OINT TP SCH (09:49)
[2019-07-09] MEDS: ESCITALOPRAM OXALATE (10 MG) 10 MG TABLET PO SCH (12:24)
--- NOTE | 2019-07-09 12:50 | NUR ---
RN MS NOTES PT IN BED, RESTING, ENCOURAGED INCREASED ORAL INTAKE, RECEIVED DISCHARGE ORDER FROM DR. CALLE, PT INFORMED, AWAITING PLACEMENT DETAILS FROM TARIFF PUBLISHING AGENT.
[2019-07-09 16:00] VITALS: BP 139/70
--- NOTE | 2019-07-09 19:00 | NUR ---
RN MS NOTES PT IN BED, AWAKE, ALERT AND ORIENTED, PAIN MEDS GIVEN ORDERED, NOT IN DISTRESS, DISCHARGE AND MEDICATION PROVIDED TO PT, VERBALIZED UNDERSTANDING, BELONGINGS ACCOUNTED FOR, PT REFUSED SKIN CHECK AND PHOTOS ON DISCHARGE, EXPLAINED THE NEED FOR IT BUT STILL REFUSED, REPORT GIVEN TO ALIN TONEY FROM [facility], PICKED UP BY 2 AMBULANCE PERSONNEL, LEFT WITH ALL BELONGINGS INCLUDING HER WHEELCHAIR, LEFT IN STABLE CONDITION.
== END 2019-07-09 19:00 | DRG 689 ==
LOC: ER 10:57 → TELE1 12:44 → MEDSG1 07-06 09:36 → MEDSG2 07-07 12:38
PROVIDERS: ADMIT General Practice; ATTEND General Practice
DX: N39.0 Urinary tract infection, site not specified (principal); E43 Unspecified severe protein-calorie malnutrition; J98.11 Atelectasis; F11.23 Opioid dependence with withdrawal; R62.7 Adult failure to thrive; D50.9 Iron deficiency anemia, unspecified; I50.9 Heart failure, unspecified; J44.9 Chronic obstructive pulmonary disease, unspecified; M54.5 Low back pain; F29 Unspecified psychosis not due to a substance or known physiological condition; M79.7 Fibromyalgia; Z98.84 Bariatric surgery status; Z96.641 Presence of right artificial hip joint; Z88.3 Allergy status to other anti-infective agents; Z88.0 Allergy status to penicillin; Z88.2 Allergy status to sulfonamides; Z88.7 Allergy status to serum and vaccine; Z79.51 Long term (current) use of inhaled steroids; Z79.899 Other long term (current) drug therapy; Z74.09 Other reduced mobility; M19.90 Unspecified osteoarthritis, unspecified site; F12.90 Cannabis use, unspecified, uncomplicated; Z72.0 Tobacco use; R29.6 Repeated falls; G62.9 Polyneuropathy, unspecified; S81.812A Laceration without foreign body, left lower leg, initial encounter; X58.XXXA Exposure to other specified factors, initial encounter; Y92.9 Unspecified place or not applicable; M62.50 Muscle wasting and atrophy, not elsewhere classified, unspecified site
CPT/HCPCS: 36415; 71045-TC; 80048-TC; 80053-TC; 80076-TC; 81000-TC; 82272-TC; 82962-TC; 83540-TC; 83605-TC; 84443-TC; 84484-TC; 85025-TC; 85730-TC; 87040-TC; 87081-TC; 87086-TC; 97530-TC; G0378; J1650; J2405; J7030; Q0162

== ENCOUNTER 2019-07-15 14:09 | Inpatient (IN) | payer MEDICARE, MEDICAID ==
[~2019-07-15] VITALS: Ht 152.4 cm; Wt 41.3 kg
[~2019-07-15 14:09] MED LIST changes: -ACET-868 PO; +ALBU2.5V38 IH; +ASCO500T9 PO; -BUPR1TAB58 SL; +BUPR2TAB3 SL; +CALC-7 PO; -CALC-883 PO; +CLON0.1T14 PO; -CRAN450C PO; +ESCI10TA PO; +GABA-534 PO; -HYDR-4354 PO; +HYDR-4384 PO; +MEGE400O6 PO; +NICO-676 TD; +PANT40TA2 PO; +QUET25TA PO; -TRAM50TA2 PO
--- NOTE | 2019-07-15 14:47 | NUR ---
BIB [facility] FOR L[facility] H&H 12/05.3. ALSO C/O BACK PAIN 02/21. NO OTHER MEDICAL COMPLAINTS AT THIS TIME. PT IS AOX4, VSS, RR EVEN AND UNLABORED ON RA. NO ACUTE DISTRESS NOTED. DENIES SOB, DIZZINESS, WEAKNESS, N/V. ON MONITOR AND READY FOR EVAL.
--- NOTE | 2019-07-15 14:55 | NUR ---
XRAY AT BEDSIDE
[2019-07-15 15:00] LABS: BASOPHILS % (AUTO) 0.2 % (0.0-2.0); EOSINOPHILS % (AUTO) 0.5 % (0.0-6.0); HEMATOCRIT 24 % (33-45); HEMOGLOBIN 7.6 g/dL (11.5-14.8); LYMPHOCYTES # (AUTO) 2.4 /CMM (0.8-4.8); LYMPHOCYTES % (AUTO) 17.3 % (20.0-44.0); MEAN CORPUSCULAR HGB CONC 31 g/dl (31.0-36.0); MEAN CORPUSCULAR VOLUME 95 fL (82-100); MONOCYTES # (AUTO) 1.1 /CMM (0.1-1.30); MONOCYTES % (AUTO) 7.6 % (2.0-12.0); NEUTROPHILS # (AUTO) 10.5 /CMM (1.8-8.9); NEUTROPHILS % (AUTO) 74.4 % (43.0-81.0); PLATELET COUNT (AUTO) 724 /CMM (150-450); RED BLOOD CELL COUNT(AUTO) 2.56 MIL/uL (4.0-5.2); WHITE BLOOD COUNT (AUTO) 14.1 K/uL (4.3-11.0)
--- NOTE | 2019-07-15 15:20 | NUR ---
CALLED DIETARY FOR FOOD TRAY
[2019-07-15 15:22] LABS: CALCIUM, SERUM 8.5 mg/dL (8.5-10.1); CARBON DIOXIDE 26 mmol/L (21-32); CHLORIDE 103 mmol/L (98-107); CREATININE 0.5 mg/dL (0.6-1.3); GLUCOSE 93 mg/dL (74-106); POTASSIUM 3.3 mmol/L (3.5-5.1); SODIUM SERUM 137 mmol/L (136-145); UREA NITROGEN, BLOOD 9 mg/dL (7-18)
[2019-07-15 15:27] LABS: ALANINE AMINOTRANSFERASE 10 U/L (12-78); ALKALINE PHOSPHATASE 91 U/L (46-116); ASPARTATE AMINOTRANSFERASE 15 U/L (15-37); BILIRUBIN,DIRECT 0.1 mg/dL (0.0-0.2); BILIRUBIN,TOTAL 0.2 mg/dL (0.2-1.0); LIPASE 34 U/L (73-393); TOTAL PROTEIN, SERUM 5.5 g/dL (6.4-8.2)
[2019-07-15] MEDS ORDERED: CRAN425C6 PO (15:35)
[2019-07-15] MEDS ORDERED: BUSP10TA3 PO (15:35)
[2019-07-15] MEDS ORDERED: MULT-439 PO (15:35)
[2019-07-15] MEDS ORDERED: BUPR2TAB3 SL (15:35)
[2019-07-15] MEDS ORDERED: ACET-2605 PO ×2 (15:35)
[2019-07-15] MEDS ORDERED: FERR325T23 PO (15:35)
[2019-07-15] MEDS ORDERED: NA P133E RC (15:35)
[2019-07-15] MEDS ORDERED: CRAN3875 PO (15:35)
[2019-07-15] MEDS ORDERED: CLON0.5T PO (15:35)
[2019-07-15] MEDS ORDERED: SENN-168 PO (15:35)
--- NOTE | 2019-07-15 15:41 | NUR ---
CALLED DR. CALLE OFFICE.
--- NOTE | 2019-07-15 15:48 | NUR ---
CALLED NURSING SUP FOR TELE BED.
[2019-07-15] MEDS ORDERED: MEROPENEM 500 MG in IV NS 0.9% 50 ML IV ONE (16:00)
[2019-07-15] MEDS ORDERED: POTASSIUM CHLORIDE 20 MEQ TAB.PRT.SR PO ONE ×2 (16:00→16:50)
[2019-07-15] MEDS ORDERED: VANCOMYCIN 1 GM in IV D5W 250 ML IV ONE (16:00)
[2019-07-15] MEDS ORDERED: clonazePAM 1 MG TABLET PO ONE (16:00)
[2019-07-15] MEDS ORDERED: HYDROCODONE/APAP 5/325MG 1 EACH TABLET PO ONE (16:00)
--- NOTE | 2019-07-15 16:19 | NUR ---
NURSING SUP GAVE TELE BED 111-2.
--- NOTE | 2019-07-15 16:46 | NUR ---
CALLED PHARMACY FOR MEDS
[2019-07-15] MEDS ORDERED: clonazePAM 1 MG TABLET ONE (16:49)
[2019-07-15] MEDS ORDERED: HYDROCODONE/APAP 5/325MG 1 EACH TABLET ONE (16:50)
--- NOTE | 2019-07-15 17:22 | NUR ---
CALLED TO GIVE REPORT. NURSE UNAVAILABLE AND WILL CALL BACK
--- NOTE | 2019-07-15 17:31 | NUR ---
SECOND ATTEMPT TO GIVE REPORT. NURSE STILL UNAVAILABLE.
--- NOTE | 2019-07-15 18:16 | NUR ---
CALLED TO GIVE REPORT. NURSE UNAVAILABLE. WILL CALL BACK
--- NOTE | 2019-07-15 18:27 | NUR ---
REPORT GIVEN TO FENG GOLD FOR 111-1T
--- NOTE | 2019-07-15 19:00 | NUR ---
TYRE RETREADER NOTES OPENING ADMISSION RECEIVED 73 Y/O FEMALE FROM ER NURSE A/OX4 FAROESE SPEAKER ON ROOM AIR SATURATING 98%. BP 136/65 PULSE 78 RR 20 TEMPERATURE 98.8 F. LEFT ANTERIOR LOWER LEG WOUND WITH NO DRAINAGE. RAC # 20 IV SITE PATENT ANTIBIOTIC IS RUNNING. MRSA DONE AT ER. NO SOB OR DISCOMFORT AT THIS TIME. NO PAIN. BELONGINGS SIGNED. PUT PATIENT ON MONITOR. CALL LIGHT WITHIN REACH BED AT THE LOWEST POSITION LOCKED. WILL ENDORSE TO PEDIATRIC ANESTHESIOLOGIST NURSE FOR ELLIS.
--- NOTE | 2019-07-15 19:15 | NUR ---
MANAGER DISCOVERY OPENING NOTES RECEIVED PATIENT IN BED A/O X4. PATIENT IS ABLE TO STATE NAME AND LOCATION. NO SIGN OF ANY DISTRESS AT THE MOMENT. PATIENT ON THE MONITOR SHOWING NSR WITH HR IN THE 70'S. PATIENT IS ON ROOM AIR SATURATING AT 96% WITH NO SIGN OF SOB. HAS IV ACCESS ON THE RAC #18 PATENT AND FLUSHING. ALL SAFETY PRECAUTION HAVE BEEN APPLIED. WILL CONTINUE TO MONITOR PATIENT FOR ELLIS.
[2019-07-15 20:00] VITALS: BP 130/70
--- NOTE | 2019-07-15 20:42 | NUR ---
RN NOTE [facility] FOR ONCALL (DR. MILES) FOR ORDERS.
--- NOTE | 2019-07-15 20:46 | NUR ---
RN NOTE SPOKE TO DR. MILES IN REGARDS TO ORDERS FOR PATIENT. RECOMMENDING PATIENT TO BE NPO DUE TO POSS GI BLEED. SAID TO WAIT FOR ALL OTHER ORDERS FROM ADMITTING DR BROTHERS.
--- NOTE | 2019-07-15 21:20 | NUR ---
JESÚS PATEL OFFICE TO RECEIVE ADMITTING ORDERS. SPOKE WITH CANDE STOLL
[2019-07-15] MEDS ORDERED: ALBUTEROL FS 2.5 MG/0.5 ML VIAL.NEB NEB PRN (22:00)
[2019-07-15] MEDS ORDERED: GABA-534 PO (22:01)
[2019-07-15] MEDS ORDERED: TEMA30CA PO (22:01)
[2019-07-15] MEDS ORDERED: DOCU100P PO (22:01)
[2019-07-15] MEDS ORDERED: HYDR-4384 PO (22:01)
[2019-07-15] MEDS: PANTOPRAZOLE 40 MG VIAL IV SCH (22:47)
[2019-07-16] VITALS (9 sets, daily range): BP systolic 101–158; BP diastolic 62–82
[2019-07-16] MEDS ORDERED: TEMAZEPAM 7.5 MG CAPSULE PO PRN
[2019-07-16] MEDS ORDERED: HYDR-4385 PO (01:19)
[2019-07-16] MEDS ORDERED: HYDR-4354 PO (01:40)
[2019-07-16] MEDS ORDERED: HYDROCODONE/APAP 5/325MG 1 EACH TABLET PO PRN ×3 (02:30→09:00)
--- NOTE | 2019-07-16 03:05 | NUR ---
RN NOTE BLOOD TRANSFUSION COMPLETED. PATIENT IN NO SIGN OF ANY DISTRESS. ALL VITALS WNL. WILL CONTINUE TO MONITOR.
[2019-07-16 06:26] LABS: BASOPHILS % (AUTO) 0.3 % (0.0-2.0); EOSINOPHILS % (AUTO) 0.9 % (0.0-6.0); HEMATOCRIT 26 % (33-45); LYMPHOCYTES # (AUTO) 2.4 /CMM (0.8-4.8); LYMPHOCYTES % (AUTO) 18.3 % (20.0-44.0); MEAN CORPUSCULAR HGB CONC 34 g/dl (31.0-36.0); MEAN CORPUSCULAR VOLUME 94 fL (82-100); MONOCYTES # (AUTO) 1.1 /CMM (0.1-1.30); MONOCYTES % (AUTO) 8.5 % (2.0-12.0); NEUTROPHILS # (AUTO) 9.5 /CMM (1.8-8.9); PLATELET COUNT (AUTO) 625 /CMM (150-450); RED BLOOD CELL COUNT(AUTO) 2.78 MIL/uL (4.0-5.2); WHITE BLOOD COUNT (AUTO) 13.2 K/uL (4.3-11.0)
[2019-07-16 06:58] LABS: CALCIUM, SERUM 8.1 mg/dL (8.5-10.1); CARBON DIOXIDE 23 mmol/L (21-32); CHLORIDE 103 mmol/L (98-107); CREATININE 0.5 mg/dL (0.6-1.3); GLUCOSE 73 mg/dL (74-106); SODIUM SERUM 135 mmol/L (136-145); UREA NITROGEN, BLOOD 8 mg/dL (7-18)
--- NOTE | 2019-07-16 07:22 | NUR ---
CHEMICAL RESEARCH TECHNICIAN OPENING NOTE PATIENT IN BED CURRENTLY ON ROOM AIR WITH NO SING OF ANY DISTRESS OR SOB. PATIENT HAS RFA #18 ON S/L PATENT AND FLUSHING. ALL NEEDS HAVE BEEN MET. ENDORSED PATIENT TO MORNING SHIFT NURSE FOR ELLIS.
[2019-07-16] MEDS: ENSURE ENLIVE 237 ML LIQUID (VANILLA) PO SCH ×3 (08:08→16:36)
[2019-07-16] MEDS ORDERED: FERROUS SULFATE (325 MG) 325 MG/TAB TABLET PO SCH (09:00)
[2019-07-16] MEDS ORDERED: busPIRone HCL 10 MG TABLET PO SCH (09:00)
[2019-07-16] MEDS ORDERED: CLONIDINE HCL 0.1 MG TABLET PO PRN (09:00)
[2019-07-16] MEDS ORDERED: NICOTINE PATCH (14MG) 14 MG PATCH.TD24 TD PRN (09:00)
[2019-07-16] MEDS ORDERED: NA PHOS,M-B/NA PHOS,DI-BA 1 EA ENEMA RC PRN (09:00)
[2019-07-16] MEDS ORDERED: TEMAZEPAM 15 MG CAPSULE PO PRN (09:00)
[2019-07-16] MEDS ORDERED: MISCELLANEOUS MED 1 EA EA PO PRN (09:00)
[2019-07-16] MEDS ORDERED: GABAPENTIN 300 MG CAPSULE PO SCH (09:00)
[2019-07-16] MEDS: GABAPENTIN 300 MG CAPSULE PO SCH ×3 (09:36→16:36)
[2019-07-16] MEDS: ASCORBIC ACID 500 MG TABLET PO SCH (09:37)
[2019-07-16] MEDS: MULTIVIT W/MINERALS 1 TAB TABLET PO SCH (09:37)
[2019-07-16] MEDS: MEGESTROL ACETATE SUSP 400 MG/10 ML UDC PO SCH ×2 (09:37→16:36)
[2019-07-16] MEDS: ESCITALOPRAM OXALATE (10 MG) 10 MG TABLET PO SCH (09:37)
[2019-07-16] MEDS: clonazePAM 0.5 MG TABLET PO SCH ×2 (09:38→16:36)
[2019-07-16] MEDS: CALCIUM CARB 250MG /VITAMIN D 1 UDTAB PO SCH (09:45)
[2019-07-16] MEDS: busPIRone 5 MG TABLET PO SCH ×2 (10:01→16:36)
[2019-07-16] MEDS: ACETYLCYSTEINE 10% SOLN 400 MG/4 ML VIAL NEB SCH ×3 (10:30→23:14)
[2019-07-16] MEDS: IPRATROPIUM NEB FS 0.5 MG/2.5 ML AMPUL.NEB NEB SCH ×4 (11:30→23:14)
[2019-07-16] MEDS: ALBUTEROL FS 2.5 MG/0.5 ML VIAL.NEB NEB SCH ×4 (11:30→23:14)
[2019-07-16] MEDS: methylPREDNISolone SOD SUCC 125 MG/2ML VIAL IV SCH ×2 (11:33→21:25)
[2019-07-16 12:26] LABS: IRON, SERUM 114 ug/dl (50-175); TOTAL IRON BINDING CAPACITY 138 ug/dl (250-450)
[2019-07-16 12:39] LABS: FERRITIN 84 ng/mL (8-388)
--- NOTE | 2019-07-16 13:23 | NUR ---
TELE/RN NOTES SPOKE TO DR. CALLE REGARDING THE PATIENTS PAIN MEDICATION, WITH ORDERS TO INCREASE NORCO TO Q4H. ALL ORDERS NOTED AND CARRIED OUT. WILL CONTINUE TO MONITOR CLOSELY.
[2019-07-16] MEDS: HYDROCODONE/APAP 5/325MG 1 EACH TABLET PO PRN ×2 (14:18→19:54)
--- NOTE | 2019-07-16 16:04 | NUR ---
TELE/RN NOTES RADIOLOGY CAME BY TO PUBLIC ADDRESS SYSTEM OPERATOR PATIENT TO DO HER CT OF THE CHEST. PER PATIENT SHE WANTS TO DO IT AFTER DINNER. PATIENT CONTINUES TO REMAIN IN STABLE CONDITION. WILL CONTINUE TO MONITOR CLOSELY.
--- NOTE | 2019-07-16 19:34 | NUR ---
TELE/RN CLOSING NOTES PATIENT CONTINUES TO REMAIN IN STABLE CONDITION THROUGHOUT THE SHIFT. PROVIDED COMFORT AND SAFETY. PATIENT ABLE TO TOLERATE MEALS AND MEDS WELL. IV ACCESS INTACT AND PATENT. FLUSHING WELL. ENDORSED TO PM NURSE REGARDING THE GI CONSULT. ALL NEEDS ANTICIPATED. CALL LIGHT WITHIN REACHED. BED LOCKED AND IN LOWEST POSITION. SAFETY MAINTAINED. WILL CONTINUE TO MONITOR CLOSELY. ENDORSED TO PM NURSE FOR ELLIS.
--- NOTE | 2019-07-16 19:35 | NUR ---
TELE/RN OPENING NOTES, RECEIVED PATIENT IN BED SLEEPING. A/O X3. ON RA TOLERATING WELL, NO SOB OR ACUTE DISTRESS NOTED AT THIS TIME. IV ACCESS ON RFA #18 SL. INTACT AND PATENT, FLUSHED AT NO S/S OF INFILTRATION NOTED. NO SIGH OF PAIN. SAFETY MEASURES IN PLACE. CALL LIGHT WITHIN REACHED. BED LOCKED AND IN LOWEST POSITION. WILL CONTINUE TO MONITOR CLOSELY.
[2019-07-16] MEDS ORDERED: SENNOSIDES 8.6 MG TABLET PO PRN (22:00)
[2019-07-16] MEDS ORDERED: DOCUSATE SODIUM 100 MG CAPSULE PO SCH (22:00)
[2019-07-16] MEDS: PANTOPRAZOLE 40 MG VIAL IV SCH (22:36)
[2019-07-16] MEDS: DOCUSATE SODIUM 100 MG CAPSULE PO SCH (22:37)
[2019-07-17] MEDS: HYDROCODONE/APAP 5/325MG 1 EACH TABLET PO PRN ×5 (00:49→20:19)
[2019-07-17] MEDS: IPRATROPIUM NEB FS 0.5 MG/2.5 ML AMPUL.NEB NEB SCH ×6 (03:42→23:22)
[2019-07-17] MEDS: ALBUTEROL FS 2.5 MG/0.5 ML VIAL.NEB NEB SCH ×6 (03:42→23:22)
[2019-07-17 04:00] VITALS: BP 114/59
[2019-07-17] MEDS: IV D5/ 0.9% NACL 1,000 ML IV PRN ×2 (04:53→19:21)
[2019-07-17] MEDS: methylPREDNISolone SOD SUCC 125 MG/2ML VIAL IV SCH ×3 (05:41→21:25)
[2019-07-17 06:51] LABS: BASOPHILS % (AUTO) 0.2 % (0.0-2.0); HEMATOCRIT 29 % (33-45); HEMOGLOBIN 9.7 g/dL (11.5-14.8); LYMPHOCYTES # (AUTO) 0.9 /CMM (0.8-4.8); LYMPHOCYTES % (AUTO) 10.5 % (20.0-44.0); MEAN CORPUSCULAR HGB CONC 33 g/dl (31.0-36.0); MEAN CORPUSCULAR VOLUME 94 fL (82-100); MONOCYTES # (AUTO) 0.2 /CMM (0.1-1.30); MONOCYTES % (AUTO) 2.2 % (2.0-12.0); NEUTROPHILS # (AUTO) 7.2 /CMM (1.8-8.9); NEUTROPHILS % (AUTO) 87.1 % (43.0-81.0); PLATELET COUNT (AUTO) 766 /CMM (150-450); RED BLOOD CELL COUNT(AUTO) 3.09 MIL/uL (4.0-5.2); WHITE BLOOD COUNT (AUTO) 8.3 K/uL (4.3-11.0)
[2019-07-17 07:09] LABS: CALCIUM, SERUM 8.4 mg/dL (8.5-10.1); CREATININE 0.8 mg/dL (0.6-1.3); POTASSIUM 4.3 mmol/L (3.5-5.1)
[2019-07-17] MEDS: ACETYLCYSTEINE 10% SOLN 400 MG/4 ML VIAL NEB SCH ×3 (07:22→23:22)
[2019-07-17 07:30] VITALS: BP 130/74
--- NOTE | 2019-07-17 07:52 | NUR ---
TELE/RN CLOSING NOTES, PATIENT IN BED RESTING . A/O X3. ON RA TOLERATING WELL, NO SOB OR ACUTE DISTRESS NOTED AT THIS TIME. IV ACCESS ON RFA #18 SL. INTACT AND PATENT, FLUSHED AT NO S/S OF INFILTRATION NOTED. NO SIGH OF PAIN AST THIS TIME. ALL CARE HAS BEED PROVIDED DURING TRUCK HOP. SAFETY MEASURES IN PLACE. CALL LIGHT WITHIN REACHED. BED LOCKED AND IN LOWEST POSITION. EMDORSED THE PATIENT TO AM RN FOR ELLIS.
[2019-07-17 08:00] VITALS: BP 130/74
[2019-07-17] MEDS: MULTIVIT W/MINERALS 1 TAB TABLET PO SCH ×2 (08:49→08:59)
[2019-07-17] MEDS: ESCITALOPRAM OXALATE (10 MG) 10 MG TABLET PO SCH ×2 (08:49→08:58)
[2019-07-17] MEDS: CALCIUM CARB 250MG /VITAMIN D 1 UDTAB PO SCH ×2 (08:49→08:59)
[2019-07-17] MEDS: MEGESTROL ACETATE SUSP 400 MG/10 ML UDC PO SCH ×3 (08:49→16:08)
[2019-07-17] MEDS: GABAPENTIN 300 MG CAPSULE PO SCH ×4 (08:50→16:08)
[2019-07-17] MEDS: busPIRone 5 MG TABLET PO SCH ×3 (08:50→16:08)
[2019-07-17] MEDS: clonazePAM 0.5 MG TABLET PO SCH ×2 (08:50→16:08)
[2019-07-17] MEDS: ASCORBIC ACID 500 MG TABLET PO SCH ×2 (08:50→08:59)
[2019-07-17] MEDS: ENSURE ENLIVE 237 ML LIQUID (VANILLA) PO SCH ×2 (08:51→12:39)
[2019-07-17] MEDS ORDERED: MAG HYDROX/AL HYDROX/SIMETH 30 ML UDC PO PRN (09:00)
--- NOTE | 2019-07-17 09:29 | NUR ---
ALERT PT REFUSED EKG ATT.MULTIPLE ATTEMPTS MADE. FENG AQUINO NOTIFIED.
--- NOTE | 2019-07-17 10:30 | NUR ---
MS/RN ENDORSEMENT RECEIVED Patient is resting in bed, A/O x3, vital signs WNL. Complaining pain 8/10 in lower back, pain medication given by Jaylan TONEY at 0900, will reassess pain. Iv line is clean and intact in LFA #20g running D5NS @ 80ml/hour. Bed is in lowest position, side rails x3 in upright position, call light is within reach and patient is aware of how to call for assistance when needed. Will continue with plan of care.
[2019-07-17] MEDS: ENSURE ENLIVE CHOC 237 ML CAN PO SCH (16:11)
--- NOTE | 2019-07-17 17:58 | NUR ---
DR. PATEL concern no gi seen patient yet,she already left message on dr. bowman ,nursing sup made aware and left voice mail again on dr. bowman mail box deep urgent,will continue to follow up.
--- NOTE | 2019-07-17 18:08 | NUR ---
dr. bowman returned call and able to talk to dr. almanza.
--- NOTE | 2019-07-17 19:00 | NUR ---
MS RN NOTE RECEIVED PT IN STABLE CONDITION A/O X3, NOTED WATCHING TV. NO SIGNS OF SOB OR DISTRESS, NO C/O PAIN OR N/V. IV IN L FA #[address] WITH IVF INFUSING. ALL CURRENT NEEDS ATTENDED TO. BED LOW, LOCKED, UPPER RAILS UP, AND CALL LIGHT WITHIN REACH. WILL CONT. TO MONITOR.
--- NOTE | 2019-07-17 19:44 | NUR ---
MS/RN CLOSING NOTE Patient is resting in bed, A/O x3, vital signs WNL. All patient needs met, all due meds given. Iv line is clean and intact in LFA #20g running D5NS @ 80ml/hour. Bed is in lowest position, side rails x3 in upright position, call light is within reach and patient is aware of how to call for assistance when needed. Will endorse to manufacturing shift supervisor.
[2019-07-17 20:00] VITALS: BP 123/62
[2019-07-17] MEDS: PANTOPRAZOLE 40 MG VIAL IV SCH (21:25)
[2019-07-17] MEDS: DOCUSATE SODIUM 100 MG CAPSULE PO SCH (21:26)
[2019-07-18] MEDS: ALBUTEROL FS 2.5 MG/0.5 ML VIAL.NEB NEB SCH ×6 (03:23→23:20)
[2019-07-18] MEDS: IPRATROPIUM NEB FS 0.5 MG/2.5 ML AMPUL.NEB NEB SCH ×6 (03:23→23:20)
[2019-07-18 04:00] VITALS: BP 128/71
[2019-07-18] MEDS: HYDROCODONE/APAP 5/325MG 1 EACH TABLET PO PRN ×4 (04:57→20:59)
[2019-07-18] MEDS: methylPREDNISolone SOD SUCC 125 MG/2ML VIAL IV SCH ×3 (04:57→17:20)
--- NOTE | 2019-07-18 06:20 | NUR ---
MS RN NOTE RECEIVED PHONE CALL FROM DR. MCLEOD FOR NEW ORDER FOR EGD COLON ON 07/18, PT TO BE NPO AT 0000, START GOLYTELY NOW, AND GET CONSENT FOR PROCEDURE. WILL GET CONSENT NOW, AND ENDORSE TO NEXT SHIFT FOR ELLIS.
[2019-07-18] MEDS ORDERED: PEG 3350/NA SULF,BICARB,CL/KCL 4,000 ML BOTTLE PO ONE (06:30)
--- NOTE | 2019-07-18 06:30 | NUR ---
MS RN NOTE PT REMAINS IN STABLE CONDITION A/O X3, NOTED WATCHING TV. NO SIGNS OF SOB OR DISTRESS, NO C/O PAIN OR N/V. IV IN R FA #[address] WITH IVF INFUSING. ALL CURRENT NEEDS ATTENDED TO. BED LOW, LOCKED, UPPER RAILS UP, AND CALL LIGHT WITHIN REACH. WILL CONT. TO MONITOR.
[2019-07-18 08:00] VITALS: BP 150/72
[2019-07-18] MEDS: ENSURE ENLIVE CHOC 237 ML CAN PO SCH ×3 (08:00→17:21)
[2019-07-18] MEDS: ACETYLCYSTEINE 10% SOLN 400 MG/4 ML VIAL NEB SCH ×3 (08:12→23:20)
[2019-07-18] MEDS: MEGESTROL ACETATE SUSP 400 MG/10 ML UDC PO SCH ×2 (09:20→16:22)
[2019-07-18] MEDS: clonazePAM 0.5 MG TABLET PO SCH ×2 (09:21→16:22)
[2019-07-18] MEDS: busPIRone 5 MG TABLET PO SCH ×2 (09:21→16:22)
[2019-07-18] MEDS: GABAPENTIN 300 MG CAPSULE PO SCH ×3 (09:21→16:22)
[2019-07-18] MEDS: ESCITALOPRAM OXALATE (10 MG) 10 MG TABLET PO SCH (09:21)
[2019-07-18] MEDS: MULTIVIT W/MINERALS 1 TAB TABLET PO SCH (09:21)
[2019-07-18] MEDS: ASCORBIC ACID 500 MG TABLET PO SCH (09:21)
[2019-07-18] MEDS: CALCIUM CARB 250MG /VITAMIN D 1 UDTAB PO SCH (09:36)
--- NOTE | 2019-07-18 13:00 | NUR ---
MS/RN Note Report received from Darline TONEY.
--- NOTE | 2019-07-18 13:41 | NUR ---
Notified Dr. Dubose re: pt's refusal to drink Go-Lytely for EGD/Colonoscopy procedure for which pt already signed consent. Also notified re: pt's refusal of EGD/Colonoscopy for which pt already signed consent. Also notified multiple education sessions given to pt re: importance of procedure and procedure prep, pt still refused and requested to have food. Will also Notify Dr. Gutierrez. Please see new orders for pt's diet.
--- NOTE | 2019-07-18 13:42 | NUR ---
Left message to Dr. Gutierrez's office re: Notified Dr. Dubose re: pt's refusal to drink Go-Lytely for EGD/Colonoscopy procedure for which pt already signed consent. Also notified re: pt's refusal of EGD/Colonoscopy for which pt already signed consent. Also notified multiple education sessions given to pt re: importance of procedure and procedure prep, pt still refused and requested to have food. Dr. Gutierrez now driving to hospital and estimated time of Arrival is in 1-2 hours.
--- NOTE | 2019-07-18 13:43 | NUR ---
Endorsed communication follow-up with Dr. Gutierrez to FENG Price for continuity of pt care. SBAR report also given to FENG Price for continuity of pt care.
[2019-07-18] MEDS: PANTOPRAZOLE 40 MG VIAL IV SCH ×2 (14:34→21:05)
[2019-07-18] MEDS: VALSARTAN 80 MG TABLET PO SCH (14:34)
[2019-07-18] MEDS: IV D5/ 0.9% NACL 1,000 ML IV PRN (14:41)
[2019-07-18 16:00] VITALS: BP 152/80
--- NOTE | 2019-07-18 16:00 | NUR ---
Patient refused EGD/colonoscopy procedure for tomorrow, Dr. Gutierrez made aware while in facility.
--- NOTE | 2019-07-18 18:50 | NUR ---
MS/RN Closing note Patient in bed comfortable, no appears pain or any discomfort, skin is warm to touch, clean/dry, intact IV site. Respiratory even and unlabored in room air. Kept lower position of bed with elevated HOB. Call light within reach, will endorse to shift foreman.
--- NOTE | 2019-07-18 19:19 | NUR ---
MS/RN OPENING NOTES RECEIVED PATIENT IN BED, HAD DINNER TRAY, ABLE TO EAT 75%, CAN VERBALIZE NEEDS, ON ROOM AIR, RESPIRATIONS EVEN AND UNLABORED, WITH GOOD EYE CONTACT, RECEIVED ENDORSEMENT FROM AM RN FOR ELLIS. BED LOCKED, CALL LIGTHS WITHIN REACH, RFA GAUGE 24 RUNNING D5 NS AT 80. WILL MONITOR. NO GRIMACE OR GUARDING OBSERVED OR REPORTED.
[2019-07-18 20:00] VITALS: BP_SYST 121; BP_SYST 97; BP_DIAS 40; BP_DIAS 60
[2019-07-18] MEDS: DOCUSATE SODIUM 100 MG CAPSULE PO SCH (20:59)
--- NOTE | 2019-07-18 21:00 | NUR ---
MS/RN NOTES REPORTED BACK PAIN 10/22, REQUESTED FOR NORCO 5-325 MG PO, REPOSITIONED. KEPT COMFORTABLE. TO MONITOR RELIEF.
[2019-07-18 21:58] VITALS: BP 121/60
--- NOTE | 2019-07-18 22:00 | NUR ---
MS/RN NOTES PATIENT ALERT ORIENTED AND CAN SWALLOW PO MEDS WITH NO S/S OF COUGHING OR ASPIRATIONS.
--- NOTE | 2019-07-19 01:00 | NUR ---
MS/RN NOTES PATIENT REPORTED HEARTBURN REQUESTED FOR SOME MAALOX. HAD SOME CRACKERS AND MILK.
[2019-07-19] MEDS: HYDROCODONE/APAP 5/325MG 1 EACH TABLET PO PRN ×4 (01:47→23:19)
--- NOTE | 2019-07-19 01:47 | NUR ---
ms/rn notes PATIENT REPORTED BACK PAIN AND REQUESTED FOR NEEDED PAIN MEDICATION TO RELIEVE PAIN 10/13 IN BACK. NEEDED NORCO PROVIDED AND EDUCATED ON SIDE EFFECT. PATIENT VERBALIZED UNDERSTANDING.
[2019-07-19] MEDS: ALBUTEROL FS 2.5 MG/0.5 ML VIAL.NEB NEB SCH ×6 (03:33→23:02)
[2019-07-19] MEDS: IPRATROPIUM NEB FS 0.5 MG/2.5 ML AMPUL.NEB NEB SCH ×6 (03:33→23:02)
[2019-07-19 04:00] VITALS: BP 117/62
--- NOTE | 2019-07-19 06:25 | NUR ---
111-1/MS-RN CLOSING NOTED PATIENT ALERT, ORIENTED X3, ABLE TO VERBALIZE NEEDS AT ALL TIMES, PAIN MANAGED. PROVIDED FOOD. KEPT COMFORTABLE. ATTENDED ALL NEEDS, BED LOCKED, CALL LIGHTS WITHIN REACH. MONITORED FOR ANY CHANGES. KEPT COMFORTABLE. WILL ENDORSE TO AM RN FOR ELLIS.
[2019-07-19 06:54] LABS: HEMATOCRIT 27 % (33-45); HEMOGLOBIN 8.7 g/dL (11.5-14.8); LYMPHOCYTES # (AUTO) 0.7 /CMM (0.8-4.8); LYMPHOCYTES % (AUTO) 4.4 % (20.0-44.0); MEAN CORPUSCULAR HGB CONC 32 g/dl (31.0-36.0); MEAN CORPUSCULAR VOLUME 95 fL (82-100); MONOCYTES # (AUTO) 0.8 /CMM (0.1-1.30); MONOCYTES % (AUTO) 5.5 % (2.0-12.0); NEUTROPHILS # (AUTO) 13.6 /CMM (1.8-8.9); NEUTROPHILS % (AUTO) 90.1 % (43.0-81.0); PLATELET COUNT (AUTO) 661 /CMM (150-450); RED BLOOD CELL COUNT(AUTO) 2.84 MIL/uL (4.0-5.2)
[2019-07-19 07:09] LABS: CALCIUM, SERUM 8.1 mg/dL (8.5-10.1); CREATININE 0.6 mg/dL (0.6-1.3)
[2019-07-19] MEDS: ACETYLCYSTEINE 10% SOLN 400 MG/4 ML VIAL NEB SCH ×3 (07:40→23:02)
[2019-07-19 08:00] VITALS: BP 128/81
[2019-07-19] MEDS: ENSURE ENLIVE CHOC 237 ML CAN PO SCH ×3 (08:00→17:59)
[2019-07-19] MEDS: VALSARTAN 80 MG TABLET PO SCH (10:15)
[2019-07-19] MEDS: GABAPENTIN 300 MG CAPSULE PO SCH ×3 (10:15→17:59)
[2019-07-19] MEDS: POTASSIUM CHLORIDE 20 MEQ TAB.PRT.SR PO SCH ×3 (10:15→12:52)
[2019-07-19] MEDS: ASCORBIC ACID 500 MG TABLET PO SCH (10:16)
[2019-07-19] MEDS: MULTIVIT W/MINERALS 1 TAB TABLET PO SCH (10:16)
[2019-07-19] MEDS: busPIRone 5 MG TABLET PO SCH ×2 (10:16→17:59)
[2019-07-19] MEDS: ESCITALOPRAM OXALATE (10 MG) 10 MG TABLET PO SCH (10:16)
[2019-07-19] MEDS: MEGESTROL ACETATE SUSP 400 MG/10 ML UDC PO SCH ×2 (10:17→17:00)
[2019-07-19] MEDS: methylPREDNISolone SOD SUCC 125 MG/2ML VIAL IV SCH (10:17)
[2019-07-19] MEDS: clonazePAM 0.5 MG TABLET PO SCH ×2 (10:17→17:59)
[2019-07-19] MEDS: CALCIUM CARB 250MG /VITAMIN D 1 UDTAB PO SCH (12:52)
--- NOTE | 2019-07-19 13:33 | NUR ---
Spoke with ELZA Peraza and she stated that bed is still available at [facility] [place] (for 7 days from admission). Need a discharge order.
--- NOTE | 2019-07-19 13:36 | NUR ---
Pt still unwilling to have EGD/Colonoscopy done at [facility]. Encouraged pt to have procedure done here since H/H dropped again. Pt still refused and stated that she will have it done outpatient, privately. Notified Dr. Richardson re: the same.
[2019-07-19 16:00] VITALS: BP 140/81
[2019-07-19 20:00] VITALS: BP 116/69
--- NOTE | 2019-07-19 20:00 | NUR ---
V/S taken by SWIMMING POOL ATTENDANT, afebrile. RECORDED.
--- NOTE | 2019-07-19 20:27 | NUR ---
MS RN OPENING NOTES: 1914- RECEIVED PATIENT IN BED, AWAKE, A/O X4. HOB ELEVATED, PATIENT JUST FINISHED EATING. NO SOB NOTED. NO C/O PAIN. CALL LIGHT WITHIN REACH. BED IN LOWEST AND LOCKED POSITION.
[2019-07-19] MEDS: PANTOPRAZOLE 40 MG VIAL IV SCH (21:45)
[2019-07-19] MEDS: DOCUSATE SODIUM 100 MG CAPSULE PO SCH (21:45)
--- NOTE | 2019-07-19 21:53 | NUR ---
WITH RIGHT FOREARM SKIN TEAR, WITH XEROFORM DRESSING AND MEPILEX DRESSING INTACT. WITH LEFT LOWER LEG HEALING SCAB,OPEN TO AIR, NO BLEEDING NOTED.
--- NOTE | 2019-07-19 22:27 | NUR ---
HEELS SKIN INTACT WITH BLANCHABLE REDNESS, OFFLOADED WITH PILLOWS AT ALL TIMES.
--- NOTE | 2019-07-20 03:10 | NUR ---
RIGHT FOREARM LARGE SKIN TEAR DRESSING CHANGED. WOUND CARE CONSULTED.
[2019-07-20] MEDS: ALBUTEROL FS 2.5 MG/0.5 ML VIAL.NEB NEB SCH ×7 (03:36→23:17)
[2019-07-20] MEDS: IPRATROPIUM NEB FS 0.5 MG/2.5 ML AMPUL.NEB NEB SCH ×7 (03:37→23:17)
[2019-07-20 04:00] VITALS: BP 127/69
--- NOTE | 2019-07-20 06:28 | NUR ---
MS RN CLOSING NOTES: PATIENT IN BED A/O X4. NO SOB NOTED. MEDICATED WITH NORCO 1TAB PO X1 LAST NIGHT, EFFECTIVE. CALL LIGHT WITHIN REACH. BED ALARM ON. BED IN LOWEST AND LOCKED POSITION.
[2019-07-20 07:08] LABS: BASOPHILS % (AUTO) 0.1 % (0.0-2.0); HEMATOCRIT 27 % (33-45); HEMOGLOBIN 8.5 g/dL (11.5-14.8); LYMPHOCYTES # (AUTO) 1.5 /CMM (0.8-4.8); LYMPHOCYTES % (AUTO) 8.2 % (20.0-44.0); MEAN CORPUSCULAR HGB CONC 32 g/dl (31.0-36.0); MEAN CORPUSCULAR VOLUME 95 fL (82-100); MONOCYTES # (AUTO) 1.7 /CMM (0.1-1.30); NEUTROPHILS # (AUTO) 15.6 /CMM (1.8-8.9); NEUTROPHILS % (AUTO) 82.7 % (43.0-81.0); PLATELET COUNT (AUTO) 651 /CMM (150-450); RED BLOOD CELL COUNT(AUTO) 2.84 MIL/uL (4.0-5.2); WHITE BLOOD COUNT (AUTO) 18.8 K/uL (4.3-11.0)
[2019-07-20 07:11] LABS: CALCIUM, SERUM 8.1 mg/dL (8.5-10.1); CREATININE 0.6 mg/dL (0.6-1.3); POTASSIUM 4.1 mmol/L (3.5-5.1)
--- NOTE | 2019-07-20 07:40 | NUR ---
RN OPENING NOTE: RECEIVED PATIENT IN BED THIS MORNING. PATIENT IS ALERT AND ORIENTED X3, RESPONDS APPROPRIATELY. NO SIGNS OF RESPIRATORY DISTRESS NOTED. NO ACUTE DISTRESS NOTED. PATIENT HAS A #24 ON HER LEFT WRIST, FLUSHING WELL, C/D/I, NO SIGNS OF COMPLICATIONS NOTED. PATIENT IS ON A CLEAR LIQUID DIET IN PREPARATION FOR EGD/COLONOSCOPY. SAFETY MEASURES IMPLEMENTED, BED IN LOWEST POSITION, LOCKED, SIDE RAILS UP X2, CALL LIGHT WITHIN REACH. WILL CONTINUE TO MONITOR PATIENT FOR ANY CHANGES.
[2019-07-20] MEDS: ACETYLCYSTEINE 10% SOLN 400 MG/4 ML VIAL NEB SCH ×4 (07:45→23:17)
[2019-07-20 08:00] VITALS: BP 144/73
[2019-07-20] MEDS: ENSURE ENLIVE CHOC 237 ML CAN PO SCH ×3 (08:00→16:27)
[2019-07-20] MEDS: ESCITALOPRAM OXALATE (10 MG) 10 MG TABLET PO SCH (08:07)
[2019-07-20] MEDS: MEGESTROL ACETATE SUSP 400 MG/10 ML UDC PO SCH ×3 (08:07→16:56)
[2019-07-20] MEDS: methylPREDNISolone SOD SUCC 125 MG/2ML VIAL IV SCH (08:07)
[2019-07-20] MEDS: VALSARTAN 80 MG TABLET PO SCH (08:11)
[2019-07-20] MEDS: clonazePAM 0.5 MG TABLET PO SCH ×2 (08:11→16:43)
[2019-07-20] MEDS: HYDROCODONE/APAP 5/325MG 1 EACH TABLET PO PRN ×3 (08:12→20:39)
[2019-07-20] MEDS: CALCIUM CARB 250MG /VITAMIN D 1 UDTAB PO SCH (08:12)
[2019-07-20] MEDS: MULTIVIT W/MINERALS 1 TAB TABLET PO SCH (08:12)
[2019-07-20] MEDS: busPIRone 5 MG TABLET PO SCH ×2 (08:12→16:43)
[2019-07-20] MEDS: ASCORBIC ACID 500 MG TABLET PO SCH (08:12)
[2019-07-20] MEDS: GABAPENTIN 300 MG CAPSULE PO SCH ×3 (08:12→16:43)
[2019-07-20] MEDS ORDERED: PEG 3350/NA SULF,BICARB,CL/KCL 4,000 ML BOTTLE PO ONE (09:00)
[2019-07-20 16:00] VITALS: BP 143/83
--- NOTE | 2019-07-20 19:05 | NUR ---
RN CLOSING NOTE: PATIENT IS IN BED RESTING AT THIS TIME. NO SIGNS OF RESPIRATORY DISTRESS NOTED. NO ACUTE DISTRESS NOTED. PATIENT IS ON A CLEAR LIQUID DIET IN PREPARATION FOR EGD/COLONOSCOPY. PATIENT IS TO FINISH GOLYTELY PRIOR TO COLONOSCOPY AND EGD PER DR MCLEOD, WILL ENDORSE TO ONCOMING RN. SAFETY MEASURES IMPLEMENTED, BED IN LOWEST POSITION, LOCKED, SIDE RAILS UP X2, CALL LIGHT WITHIN REACH. WILL GIVE REPORT TO ONCOMING RN FOR CONTINUITY OF CARE.
--- NOTE | 2019-07-20 19:20 | NUR ---
RN PM OPENING NOTE BEDSIDE REPORT RECIEVED FROM [facility]. PATIENT IS IN BED RESTING AT THIS TIME. NO SIGNS OF RESPIRATORY DISTRESS NOTED. NO ACUTE DISTRESS NOTED. PATIENT IS ON A CLEAR LIQUID DIET IN PREPARATION FOR EGD/COLONOSCOPY SHE IS CURRENTLY HALF WAY DONE WITH GOLYTELY PATIENT ENCOURAGED TO DRINK MORE. PATIENT IS TO FINISH GOLYTELY PRIOR TO COLONOSCOPY AND EGD PER DR MCLEOD. SAFETY MEASURES IMPLEMENTED, BED IN LOWEST POSITION, LOCKED, SIDE RAILS UP X2. WILL CONT TO MONITOR.
[2019-07-20 20:00] VITALS: BP 116/68
[2019-07-20 20:13] VITALS: BP 116/68
[2019-07-20] MEDS: PANTOPRAZOLE 40 MG VIAL IV SCH (20:39)
[2019-07-20] MEDS: DOCUSATE SODIUM 100 MG CAPSULE PO SCH (20:39)
--- NOTE | 2019-07-21 00:30 | NUR ---
PATIENT MADE NPO. PATIENT DRANK 3/4 OF GOLYTELY IN PREPARTION FOR EGD. PATIENT LAST BM STILL HAD STOOL SEDIMENT. WILL CONT TO MONITOR. TO SEE IF IT TURNS CLEAR BY AM.
[2019-07-21] MEDS: HYDROCODONE/APAP 5/325MG 1 EACH TABLET PO PRN ×4 (01:36→21:34)
--- NOTE | 2019-07-21 01:59 | NUR ---
per rt Jacqueline RT patient has refused breathing treatments during shift.
[2019-07-21] MEDS: IPRATROPIUM NEB FS 0.5 MG/2.5 ML AMPUL.NEB NEB SCH ×6 (03:14→23:30)
[2019-07-21] MEDS: ALBUTEROL FS 2.5 MG/0.5 ML VIAL.NEB NEB SCH ×6 (03:14→23:30)
[2019-07-21 04:00] VITALS: BP 150/79
--- NOTE | 2019-07-21 07:32 | NUR ---
RN OPENING NOTES RECEIVED PATIENT IN BED THIS MORNING.A/O X3. VERBALLY RESPONSIVE AND ABLE TO MAKE NEEDS KNOWN. ON ROOM AIR, NO SIGNS OF RESPIRATORY DISTRESS NOTED. NO ACUTE DISTRESS NOTED. PATIENT HAS A #24 ON HER LEFT WRIST, INTACT, PATENT AND FLUSHED WELL. NO SIGNS OF INFILTRATION NOTED. SAFETY MEASURES IN PLACE, BED IN LOWEST POSITION, LOCKED, SIDE RAILS UP X2, CALL LIGHT WITHIN REACH. WILL CONTINUE TO MONITOR PATIENT FOR ANY CHANGES.
[2019-07-21] MEDS: ACETYLCYSTEINE 10% SOLN 400 MG/4 ML VIAL NEB SCH ×3 (07:39→23:30)
[2019-07-21 08:00] VITALS: BP 148/82
[2019-07-21] MEDS: ENSURE ENLIVE CHOC 237 ML CAN PO SCH ×3 (08:00→17:35)
[2019-07-21] MEDS: busPIRone 5 MG TABLET PO SCH ×2 (09:00→16:55)
[2019-07-21] MEDS: GABAPENTIN 300 MG CAPSULE PO SCH ×3 (09:00→16:56)
[2019-07-21] MEDS: ASCORBIC ACID 500 MG TABLET PO SCH (09:00)
[2019-07-21] MEDS: clonazePAM 0.5 MG TABLET PO SCH ×2 (09:00→16:56)
[2019-07-21] MEDS: MEGESTROL ACETATE SUSP 400 MG/10 ML UDC PO SCH ×2 (09:00→16:56)
[2019-07-21] MEDS: VALSARTAN 80 MG TABLET PO SCH (09:00)
[2019-07-21] MEDS: ESCITALOPRAM OXALATE (10 MG) 10 MG TABLET PO SCH (09:00)
[2019-07-21] MEDS: CALCIUM CARB 250MG /VITAMIN D 1 UDTAB PO SCH (09:00)
[2019-07-21] MEDS: MULTIVIT W/MINERALS 1 TAB TABLET PO SCH (09:00)
[2019-07-21] MEDS: methylPREDNISolone SOD SUCC 125 MG/2ML VIAL IV SCH (09:46)
--- NOTE | 2019-07-21 10:42 | NUR ---
RN NOTES CALLED THE OFFICE OF DR. MCLEOD, AND LEFT A MESSAGE TO TECHNICAL PLANNER WHICJ IS DR WOLFF'S VOICEMAIL THAT THE PATIENT HAD BM AND IT'S GREENISH COLOR WITH SEDIMENTS. CHARGE NURSE MADE AWARE ALSO.
[2019-07-21 12:00] VITALS: BP 163/83
[2019-07-21] MEDS ORDERED: MIDAZOLAM HCL 2 MG/2ML VIAL ONE (12:31)
[2019-07-21] MEDS ORDERED: ANESTHESIA TRAY IN PYXIS 1 EA TRAY MC ONE (12:37)
[2019-07-21] MEDS ORDERED: MEPERIDINE HCL/PF 100 MG/ML DISP.SYRIN ONE ×3 (12:38→13:36)
[2019-07-21 13:27] LABS: OCCULT BLOOD STOOL POSITIVE (NEGATIVE)
[2019-07-21] MEDS ORDERED: LIDOCAINE HCL/PF 1% 30 ML SDV ONE (13:36)
[2019-07-21 16:00] VITALS: BP 144/80
[2019-07-21] MEDS: SUCRALFATE 1 G/10 ML UDC GT SCH ×3 (17:33→21:25)
--- NOTE | 2019-07-21 19:36 | NUR ---
RN CLOSING NOTES PATIENT IN BED, RESTING COMFORTABLY. IN ROOM AIR, IN NO APPARENT DISTRESS NOTED. NO BLEEDING NOTED AFTER THE PROCEDURE.NO CHANGED OF CONDITION AFTER THE PROCEDURE. KEPT CLEAN AND DRY, ALL NEEDS MET. SAFETY MEASURES IN PLACED, CALL LIGHT WITHIN REACHED. ENDORSED TO PM RN FOR ELLIS.
--- NOTE | 2019-07-21 19:40 | NUR ---
MS RN OPENING NOTES PATIENT AWAKE IN BED. A/OX4. ON ROOM AIR. NO S/S OF ACUTE RESPIRATORY DISTRESS AND NO C/O PAIN AT THIS TIME. IV PRESENT ON LEFT WRIST, SIZE 24, INTACT & PATENT, HEP LOCKED. SAFETY MEASURES IN PLACE. BED LOCKED, ALARM ON, CALL LIGHT WITHIN REACH. WILL CONTINUE TO MONITOR.
[2019-07-21 20:00] VITALS: BP 124/67
[2019-07-21] MEDS: DOCUSATE SODIUM 100 MG CAPSULE PO SCH (21:24)
[2019-07-21] MEDS: PANTOPRAZOLE 40 MG VIAL IV SCH (21:24)
[2019-07-22] MEDS: ALBUTEROL FS 2.5 MG/0.5 ML VIAL.NEB NEB SCH ×6 (03:08→23:30)
[2019-07-22] MEDS: IPRATROPIUM NEB FS 0.5 MG/2.5 ML AMPUL.NEB NEB SCH ×6 (03:08→23:30)
[2019-07-22 04:00] VITALS: BP 118/79
[2019-07-22] MEDS: HYDROCODONE/APAP 5/325MG 1 EACH TABLET PO PRN ×3 (06:46→18:59)
--- NOTE | 2019-07-22 07:30 | NUR ---
RN OPENING NOTE: RECEIVED PATIENT IN BED THIS MORNING. PATIENT IS ALERT AND ORIENTED X3, RESPONDS APPROPRIATELY. NO SIGNS OF RESPIRATORY DISTRESS NOTED. PATIENT COMPLAINING OF BACK PAIN 12/22. PATIENT HAS A #24 ON HER LEFT WRIST, FLUSHING WELL, C/D/I, NO SIGNS OF COMPLICATIONS NOTED. SAFETY MEASURES IMPLEMENTED, BED IN LOWEST POSITION, LOCKED, SIDE RAILS UP X2, CALL LIGHT WITHIN REACH. WILL CONTINUE TO MONITOR PATIENT FOR ANY CHANGES.
--- NOTE | 2019-07-22 07:33 | NUR ---
MS RN CLOSING NOTES PATIENT AWAKE IN BED. A/OX4. ON ROOM AIR. NO S/S OF ACUTE RESPIRATORY DISTRESS AND NO C/O PAIN AT THIS TIME. IV PRESENT ON LEFT WRIST, SIZE 24, INTACT & PATENT, HEP LOCKED. SAFETY MEASURES IN PLACE. BED LOCKED, ALARM ON, CALL LIGHT WITHIN REACH. WILL ENDORSE TO DAY SHIFT NURSE PLAN OF CARE.
[2019-07-22 08:00] VITALS: BP 135/73
[2019-07-22 08:20] LABS: CALCIUM, SERUM 7.7 mg/dL (8.5-10.1); CARBON DIOXIDE 26 mmol/L (21-32); CHLORIDE 102 mmol/L (98-107); CREATININE 0.5 mg/dL (0.6-1.3); GLUCOSE 78 mg/dL (74-106); POTASSIUM 3.5 mmol/L (3.5-5.1); SODIUM SERUM 137 mmol/L (136-145); UREA NITROGEN, BLOOD 6 mg/dL (7-18)
[2019-07-22 08:28] LABS: BASOPHILS % (AUTO) 0.2 % (0.0-2.0); EOSINOPHILS % (AUTO) 0.9 % (0.0-6.0); HEMATOCRIT 32 % (33-45); HEMOGLOBIN 10.2 g/dL (11.5-14.8); LYMPHOCYTES # (AUTO) 2.3 /CMM (0.8-4.8); LYMPHOCYTES % (AUTO) 13.5 % (20.0-44.0); MEAN CORPUSCULAR HGB CONC 32 g/dl (31.0-36.0); MEAN CORPUSCULAR VOLUME 94 fL (82-100); MONOCYTES % (AUTO) 5.6 % (2.0-12.0); NEUTROPHILS # (AUTO) 13.6 /CMM (1.8-8.9); NEUTROPHILS % (AUTO) 79.8 % (43.0-81.0); PLATELET COUNT (AUTO) 695 /CMM (150-450); RED BLOOD CELL COUNT(AUTO) 3.37 MIL/uL (4.0-5.2); WHITE BLOOD COUNT (AUTO) 17.1 K/uL (4.3-11.0)
[2019-07-22] MEDS: SUCRALFATE 1 G/10 ML UDC GT SCH ×5 (08:32→22:00)
[2019-07-22] MEDS: ACETYLCYSTEINE 10% SOLN 400 MG/4 ML VIAL NEB SCH ×3 (08:43→23:30)
[2019-07-22] MEDS: ACETAMINOPHEN ES 500 MG TABLET PO PRN (09:16)
[2019-07-22] MEDS: VALSARTAN 80 MG TABLET PO SCH (09:16)
[2019-07-22] MEDS: ASCORBIC ACID 500 MG TABLET PO SCH (09:16)
[2019-07-22] MEDS: MULTIVIT W/MINERALS 1 TAB TABLET PO SCH (09:16)
[2019-07-22] MEDS: busPIRone 5 MG TABLET PO SCH ×2 (09:16→16:57)
[2019-07-22] MEDS: CALCIUM CARB 250MG /VITAMIN D 1 UDTAB PO SCH (09:16)
[2019-07-22] MEDS: GABAPENTIN 300 MG CAPSULE PO SCH ×3 (09:16→16:57)
[2019-07-22] MEDS: clonazePAM 0.5 MG TABLET PO SCH ×2 (09:16→16:57)
[2019-07-22] MEDS: MEGESTROL ACETATE SUSP 400 MG/10 ML UDC PO SCH ×3 (09:16→17:00)
[2019-07-22] MEDS: methylPREDNISolone SOD SUCC 125 MG/2ML VIAL IV SCH (09:16)
[2019-07-22] MEDS: ESCITALOPRAM OXALATE (10 MG) 10 MG TABLET PO SCH (09:16)
[2019-07-22] MEDS: ENSURE ENLIVE CHOC 237 ML CAN PO SCH ×3 (09:17→16:58)
--- NOTE | 2019-07-22 10:57 | NUR ---
WOUND CARE CONSULT: PT PRESENTS WITH RT ARM SKIN TEAR AND LEFT LOWER LEG DRY ESCHAR AND RAISED DISCOLORED AREA, PRESENT ON ADMISSION. RECOMMEND SURGICAL CONSULT AND DPM CONSULT. DR CLARK AND DR MANZO NOTIFIED OF CONSULT REQUESTS. RECOMMENDATIONS MADE FOR SKIN PROTECTION AND DISCUSSED WITH NURSING STAFF. WILL SEE PRN. GARZA IN AGREEMENT WITH PLAN OF CARE. Addendum: 07/22/19 at 1100 by VOLODYMYR QUEEN WNDNU [facility].
[2019-07-22 11:36] VITALS: BP 135/73
[2019-07-22] MEDS ORDERED: HYDROMORPHONE INJ 0.5 MG/0.5 ML SYRINGE IV PRN (14:00)
[2019-07-22] MEDS ORDERED: HYDROMORPHONE 1 MG/1 ML DISP.SYRIN IV PRN (14:30)
[2019-07-22 16:00] VITALS: BP_SYST 141; BP_SYST 147; BP_DIAS 67; BP_DIAS 77
[2019-07-22] MEDS ORDERED: LORAZEPAM 1 MG TABLET PO PRN (18:00)
--- NOTE | 2019-07-22 19:30 | NUR ---
RN OPENING NOTE: PATIENT IS IN BED STILL COMPLAINING OF PAIN/ANXIETY. PRN ATIVAN AND NORCO GIVEN PRIOR TO CHANGE OF SHIFT REPORT. NO SIGNS OF RESPIRATORY DISTRESS NOTED. SAFETY MEASURES IMPLEMENTED, BED IN LOWEST POSITION, LOCKED, SIDE RAILS UP X2, CALL LIGHT WITHIN REACH. ENDORSED TO ONCOMING RN FOR CONTINUITY OF CARE.
--- NOTE | 2019-07-22 20:04 | NUR ---
MS RN OPENING NOTES PATIENT RECEIVED IN BED YELLING AND AGITATED COMPLAINING OF PAIN A/O X 3. PREVIOUS NURSE ADMINISTERED PRN ATIVAN AND NORCO BEFIRE CHANGE OF SHIFT. STABLE ON RA. NO SIGNS OF ACUTE DISTRESS. IV LOCATED ON LEFT WRIST #24 SL. SAFETY PRECAUTIONS IN PLACE WITH BED IN LOWEST POSITION, CALL LIGHT WITHIN REACH, BREAKS ON, AND SIDE RAILS UP. WILL CONTINUE TO MONITOR.
--- NOTE | 2019-07-22 20:59 | NUR ---
MS RN NOTES INCREASED DILAUDID PER MD INSTRUCTIONS TO 1MG FOR NEEDED UNTIL EFFECTIVE, PATIENT COMPLAINING OF PAIN AND CONTINUES TO BE AGITATED SCREAMING AND YELLING. WILL CONTINUE TO MONITOR.
--- NOTE | 2019-07-22 21:50 | NUR ---
MS RN NOTES PATIENT PULLED OUT IV, INSERTED NEW IV LOCATED ON R WRIST #24 PATENT AND INTACT. WILL CONTINUE TO MONITOR.
[2019-07-22] MEDS: PANTOPRAZOLE 40 MG VIAL IV SCH (21:56)
[2019-07-22] MEDS: DOCUSATE SODIUM 100 MG CAPSULE PO SCH (22:00)
--- NOTE | 2019-07-22 22:30 | NUR ---
MS RN NOTES PATIENT REFUSED PO MEDICATIONS DOCUSATE AND SUCRALFATE. EDUCATED ON IMPORTANCE AND PURPOSE OF MEDICATION, BUT STILL REFUSED. WILL CONTINUE TO MONITOR
--- NOTE | 2019-07-23 00:31 | NUR ---
MS RN NOTES PATIENT EXTREMELY AGITATED YELLING AND THRASHING. HAS ALREADY REMOVED IV ACCESS. YELLS AT EVERYONE WHO COMES INTO ROOM. CONTACTED MD CALLE OFFICE CHANGED ATIVAN PRN TO 1MG IVP Q4H PRN. WILL CONTINUE TO MONITOR PATIENT AND BEHAVIOR.
[2019-07-23] MEDS ORDERED: LORAZEPAM INJ 2 MG/ML VIAL IVP PRN (01:00)
[2019-07-23] MEDS ORDERED: HYDROMORPHONE 1 MG/1 ML DISP.SYRIN IV PRN (02:30)
[2019-07-23] MEDS: IPRATROPIUM NEB FS 0.5 MG/2.5 ML AMPUL.NEB NEB SCH ×3 (03:20→11:45)
[2019-07-23] MEDS: ALBUTEROL FS 2.5 MG/0.5 ML VIAL.NEB NEB SCH ×3 (03:20→11:45)
[2019-07-23] MEDS: ACETAMINOPHEN ES 500 MG TABLET PO PRN (03:40)
--- NOTE | 2019-07-23 03:43 | NUR ---
MS RN NOTES PRN TYLENOL ADMINISTERED DUE TO TEMP OF 99.7 PRN CLONIDINE ADMINISTERED DUE TO BP OF 164/ 72 WILL CONTINUE TO MONITOR
[2019-07-23 04:00] VITALS: BP 164/72
--- NOTE | 2019-07-23 06:38 | NUR ---
MS RN CLOSING NOTES PATIENT IN BED RESTING, A/O X 3. P STABLE ON RA BREATHING EVEN AND UNLABORED, NO SOB NOTED.. NO SIGNS OF ACUTE DISTRESS. NO SIGNS OF ACUTE DISTRESS, NO COMPLAINTS OF PAIN OR DISCOMFORT IV LOCATED ON RIGHT WRIST #24. SAFETY PRECAUTIONS IN PLACE WITH BED IN LOWEST POSITION, CALL LIGHT WITHIN REACH, BREAKS ON, AND SIDE RAILS UP. PATIENT WAS KEPT CLEAN AND DRY THROUGHOUT THE NIGHT. ALL NEEDS ATTENDED TO. WILL ENDORSE TO ONCOMING SHIFT ABOUT ELLIS.
--- NOTE | 2019-07-23 07:19 | NUR ---
MS/RN OPENING NOTE Patient in bed, A/o X3, showing no signs of acute distress or SOB, stable on RA. IV line in the right wrist #24g s/l is clean and intact. Bed is in lowest position, side rails x3 in upright position, call light is within reach and patient is aware of how to call for assistance when needed. Fall, safety, and aspiration precautions enforced. Will continue with plan of care.
[2019-07-23] MEDS: ACETYLCYSTEINE 10% SOLN 400 MG/4 ML VIAL NEB SCH (07:53)
[2019-07-23 08:00] VITALS: BP 158/92
[2019-07-23] MEDS: clonazePAM 0.5 MG TABLET PO SCH (08:32)
[2019-07-23] MEDS: HYDROCODONE/APAP 5/325MG 1 EACH TABLET PO PRN ×2 (08:33→12:38)
[2019-07-23] MEDS: ENSURE ENLIVE CHOC 237 ML CAN PO SCH ×2 (08:36→12:06)
[2019-07-23] MEDS: SUCRALFATE 1 G/10 ML UDC GT SCH ×2 (08:37→12:00)
[2019-07-23] MEDS: MEGESTROL ACETATE SUSP 400 MG/10 ML UDC PO SCH (09:04)
[2019-07-23] MEDS: methylPREDNISolone SOD SUCC 125 MG/2ML VIAL IV SCH (09:04)
[2019-07-23] MEDS: ESCITALOPRAM OXALATE (10 MG) 10 MG TABLET PO SCH (09:04)
[2019-07-23 09:05] VITALS: BP 158/92
[2019-07-23] MEDS: ASCORBIC ACID 500 MG TABLET PO SCH (09:05)
[2019-07-23] MEDS: VALSARTAN 80 MG TABLET PO SCH (09:05)
[2019-07-23] MEDS: GABAPENTIN 300 MG CAPSULE PO SCH ×2 (09:05→12:06)
[2019-07-23] MEDS: busPIRone 5 MG TABLET PO SCH (09:05)
[2019-07-23] MEDS: MULTIVIT W/MINERALS 1 TAB TABLET PO SCH (09:05)
[2019-07-23] MEDS: CALCIUM CARB 250MG /VITAMIN D 1 UDTAB PO SCH (09:05)
--- NOTE | 2019-07-23 10:30 | NUR ---
MS/RN NOTE Gave report to Carmina TONEY at [facility].
--- NOTE | 2019-07-23 12:49 | NUR ---
MS/RN NOTE Called family to inform of patient's discharge. No answer, will call back again.
--- NOTE | 2019-07-23 14:00 | NUR ---
MS/PROFESSOR OF MATHEMATICS NOTE patient is medically stable for discharge. A/O x3, showing no signs of acute distress or SOB, saturating >95% on RA. Vital signs WNL. Dc instructions provided. IV line removed, ID band removed. Skin assessed, photos taken and placed in chart. Report given to Carmina at [facility]. All patient needs met, all due meds given. MD is aware of discharge. Picked up by EMS en route to [facility].
== END 2019-07-23 14:58 | DRG 380 ==
LOC: ER 14:10 → TELE1 16:23 → MEDSG1 07-16 21:29
PROVIDERS: ADMIT General Practice; ATTEND General Practice
PROC: 30233N1 Transfusion of Nonautologous Red Blood Cells into Peripheral Vein, Percutaneous Approach (ICD-10-PCS; principal; 2019-07-15)
PROC: 0DB58ZX Excision of Esophagus, Via Natural or Artificial Opening Endoscopic, Diagnostic (ICD-10-PCS; 2019-07-21)
PROC: 0DBK8ZX Excision of Ascending Colon, Via Natural or Artificial Opening Endoscopic, Diagnostic (ICD-10-PCS; 2019-07-21)
PROC: 0DBL8ZZ Excision of Transverse Colon, Via Natural or Artificial Opening Endoscopic (ICD-10-PCS; 2019-07-21)
DX: K22.10 Ulcer of esophagus without bleeding (principal); J18.9 Pneumonia, unspecified organism; I21.A1 Myocardial infarction type 2; E43 Unspecified severe protein-calorie malnutrition; J44.1 Chronic obstructive pulmonary disease with (acute) exacerbation; N39.0 Urinary tract infection, site not specified; J98.11 Atelectasis; J44.0 Chronic obstructive pulmonary disease with (acute) lower respiratory infection; K63.5 Polyp of colon; E87.6 Hypokalemia; E03.9 Hypothyroidism, unspecified; E86.0 Dehydration; G89.4 Chronic pain syndrome; I11.0 Hypertensive heart disease with heart failure; I50.9 Heart failure, unspecified; Z96.641 Presence of right artificial hip joint; Z98.84 Bariatric surgery status; M81.0 Age-related osteoporosis without current pathological fracture; E78.5 Hyperlipidemia, unspecified; F41.9 Anxiety disorder, unspecified; M79.7 Fibromyalgia; R62.7 Adult failure to thrive; F17.200 Nicotine dependence, unspecified, uncomplicated; D50.9 Iron deficiency anemia, unspecified; Z88.1 Allergy status to other antibiotic agents; Z88.0 Allergy status to penicillin; Z88.2 Allergy status to sulfonamides; Z88.7 Allergy status to serum and vaccine; F12.90 Cannabis use, unspecified, uncomplicated; Z79.899 Other long term (current) drug therapy; Z79.51 Long term (current) use of inhaled steroids; R91.1 Solitary pulmonary nodule; K21.0 Gastro-esophageal reflux disease with esophagitis; F20.9 Schizophrenia, unspecified; K64.8 Other hemorrhoids; M62.50 Muscle wasting and atrophy, not elsewhere classified, unspecified site; S80.12XA Contusion of left lower leg, initial encounter; X58.XXXA Exposure to other specified factors, initial encounter; Y92.9 Unspecified place or not applicable; S51.811A Laceration without foreign body of right forearm, initial encounter
CPT/HCPCS: 36415; 71045-TC; 71250-TC; 80048-TC; 80076-TC; 82272-TC; 82728-TC; 82962-TC; 83540-TC; 83690-TC; 84484-TC; 85025-TC; 85730-TC; 86850-TC; 86921-TC; 87040-TC; 87081-TC; 88305-TC; 88313-TC; 93307-TC; A4216; C9113; G0378; J1170; J2175; J2185; J2250; J2930; J3370; J3490; J7042; J7050; J7060; P9016-BL

== ENCOUNTER 2019-09-18 12:06 | Inpatient (IN) | payer MEDICARE, OTHER ==
[~2019-09-18] VITALS: Ht 147.3 cm; Wt 37.2 kg
[~2019-09-18 12:06] MED LIST changes: +ACET-2605 PO; -ALBU2.5V38 IH; +ASCO-352 PO; -ASCO500T9 PO; -BUPR2TAB3 SL; +BUSP10TA3 PO; +DOCU100P PO; +FERR325T23 PO; +HYDR-4354 PO; +HYDR-4385 PO; +MULT-439 PO; +NA P133E RC; -PANT40TA2 PO; -QUET25TA PO; +SENN-261 PO; +TEMA30CA PO
--- NOTE | 2019-09-18 12:08 | NUR ---
GURMEET PRITCHETT FROM [facility]. SENT BY PMD FOR HEMOGLOBIN OF 7.2, LAB TEST TAKEN YESTERDAY 09/17/2019. PT VERBALLY RESPONSIVE C/O "BACK PAIN" , TO ER BED 9, HOOKED TO MONITOR, CHANGED TO HOSP GOWN, WARM BLANKET PROVIDED, PATIENT AAOx1 , BREATHING EVEN AND UNLABORED, DR QUESADA AT BEDSIDE
--- NOTE | 2019-09-18 12:13 | NUR ---
CALLED DR. DM CALLE [phone] CELL # [phone]
--- NOTE | 2019-09-18 12:23 | NUR ---
FIREARMS MODEL MAKER AT BEDSIDE
[2019-09-18] MEDS ORDERED: PANTOPRAZOLE 40 MG VIAL IV ONE (12:30)
[2019-09-18] MEDS ORDERED: IV NS 0.9% 1,000 ML IV ONE (12:30)
--- NOTE | 2019-09-18 12:31 | NUR ---
OTHER SALES SUPPORT WORKER AT BEDSIDE
[2019-09-18] MEDS ORDERED: PANTOPRAZOLE 40 MG VIAL ONE (12:38)
--- NOTE | 2019-09-18 12:38 | NUR ---
CALLED DR. SOMMER [phone] [facility].
[2019-09-18 12:45] LABS: BASOPHILS # (AUTO) 0.1 /CMM (0.0-0.2); BASOPHILS % (AUTO) 0.6 % (0.0-2.0); EOSINOPHILS % (AUTO) 0.3 % (0.0-6.0); HEMATOCRIT 28 % (33-45); HEMOGLOBIN 8.8 g/dL (11.5-14.8); LYMPHOCYTES # (AUTO) 1.7 /CMM (0.8-4.8); LYMPHOCYTES % (AUTO) 18.8 % (20.0-44.0); MEAN CORPUSCULAR HGB CONC 32 g/dl (31.0-36.0); MEAN CORPUSCULAR VOLUME 82 fL (82-100); MONOCYTES # (AUTO) 0.6 /CMM (0.1-1.30); NEUTROPHILS # (AUTO) 6.8 /CMM (1.8-8.9); NEUTROPHILS % (AUTO) 74.3 % (43.0-81.0); RED BLOOD CELL COUNT(AUTO) 3.36 MIL/uL (4.0-5.2); WHITE BLOOD COUNT (AUTO) 9.2 K/uL (4.3-11.0)
[2019-09-18 12:47] LABS: CALCIUM, SERUM 8.6 mg/dL (8.5-10.1); CARBON DIOXIDE 22 mmol/L (21-32); CHLORIDE 103 mmol/L (98-107); CREATININE 0.5 mg/dL (0.6-1.3); GLUCOSE 86 mg/dL (74-106); POTASSIUM 4.2 mmol/L (3.5-5.1); SODIUM SERUM 135 mmol/L (136-145); UREA NITROGEN, BLOOD 11 mg/dL (7-18)
[2019-09-18 12:53] LABS: ALANINE AMINOTRANSFERASE 17 U/L (12-78); ALBUMIN 1.9 g/dL (3.4-5.0); ALKALINE PHOSPHATASE 283 U/L (46-116); ASPARTATE AMINOTRANSFERASE 20 U/L (15-37); BILIRUBIN,DIRECT 0.1 mg/dL (0.0-0.2); BILIRUBIN,TOTAL 0.3 mg/dL (0.2-1.0); TOTAL PROTEIN, SERUM 6.9 g/dL (6.4-8.2)
--- NOTE | 2019-09-18 13:01 | NUR ---
GOT BED 310-1
--- NOTE | 2019-09-18 13:01 | NUR ---
BLOOD TRANSFUSION CONSENT SIGNED BY DR QUESADA (CO-SIGNED BY RN) FOR ACUTE HEMORRHAGE PATIENT CANNOT SIGN CONSENT FORM.
[2019-09-18 13:04] LABS: IRON, SERUM 20 ug/dl (50-175); TOTAL IRON BINDING CAPACITY 131 ug/dl (250-450)
[2019-09-18 13:27] LABS: PLATELET COUNT (AUTO) 900 /CMM (150-450)
--- NOTE | 2019-09-18 13:30 | NUR ---
REPORT GIVEN TO JANNETTE TONEY OF [facility] UNIT
--- NOTE | 2019-09-18 14:27 | NUR ---
TELE/RN NOTES REPORT GIVEN BY [facility]. PATIENT WAS A TRANSFER FROM ER. ARRIVED TO THE UNIT AT 1427 PM VIA GURNEY. PATIENT IS ALERT AND ORIENTED X3.INITIAL VITAL SIGN TAKEN BP: 132/70 HR: 93 TEMP; 98.1 RR: 17. INITIAL ASSESSMENT WAS DONE. PATIENT IS FOR BLOOD TRANSFUSION. WILL CONTINUE TO MONITOR.
[2019-09-18 14:29] LABS: NEUTROPHILS % (MANUAL) 73 (42-76)
[2019-09-18 14:30] LABS: LYMPHOCYTES % (MANUAL) 22 % (16-48); MONOCYTES % (MANUAL) 5 % (0-11.0)
[2019-09-18 15:50] VITALS: BP 132/70
[2019-09-18 16:00] VITALS: BP 128/87
[2019-09-18 16:15] VITALS: BP 119/81
--- NOTE | 2019-09-18 16:35 | NUR ---
TELE/RN NOTES PATIENT PULL THE IV ACCESS AND STOP THE BLOOD TRANSFUSION. WILL CONTINUE TO MONITOR.
--- NOTE | 2019-09-18 16:40 | NUR ---
TELE/RN NOTES PATIENT NO SIGN/ SYMPTOM OF BLOOD TRANSFUSION REACTION. WILL ENDORSED TO MARKETING PRODUCTION SPECIALIST TO CONTINUE THE BLOOD TRANSFUSION.
[2019-09-18] MEDS: LORAZEPAM INJ 2 MG/ML VIAL IV PRN (18:10)
[2019-09-18] MEDS ORDERED: CLONIDINE HCL 0.1 MG TABLET PO PRN (19:00)
[2019-09-18] MEDS ORDERED: TEMAZEPAM 15 MG CAPSULE PO PRN (19:00)
[2019-09-18] MEDS ORDERED: HYDROCODONE/APAP 7.5/325MG 1 EACH TABLET PO PRN (19:00)
[2019-09-18] MEDS ORDERED: NA PHOS,M-B/NA PHOS,DI-BA 1 EA ENEMA RC PRN (19:00)
[2019-09-18] MEDS ORDERED: FERROUS SULFATE (325 MG) 325 MG/TAB TABLET PO SCH (19:00)
[2019-09-18] MEDS ORDERED: HYDROCODONE/APAP 5/325MG 1 EACH TABLET PO PRN (19:24)
--- NOTE | 2019-09-18 19:31 | NUR ---
TELE/RN CLOSING NOTES PATIENT IS ON BED AND CALM. PATIENT IS ALERT AND ORIENTED X 3. NO APPARENT RESPIRATORY DISTRESS NOTED. BREATHING REGULAR AND UNLABORED IN ROOM AIR. NO COMPLAINTS OF PAIN/DISCOMFORT REPORTED AT THIS TIME. SEEN AND EXAMINED BY MD WITH ORDERS MADE AND CARRIED OUT. ALL DUE MEDS WAS GIVEN. KEPT PATIENT CLEAN AND DRY THE WHOLE SHIFT. CHECKED AND TURNED PATIENT EVERY 2 HOURS. BED LOW AND LOCKED ON SEMI FOWLERS POSITION. CALL LIGHT WITHIN REACH. WILL ENDORSED THE BLOOD TRANSFUSION. WILL ENDORSED TO STOCKROOM SUPERVISOR FOR ELLIS.
--- NOTE | 2019-09-18 19:37 | NUR ---
BRIQUETTE MACHINE OPERATOR NOTES PATIENT RECEIVED IN BED SLEEPING, AWAKEN BY NAME AND LIGHT TOUCH. ALERT AND ORIENTED X 2. PATIENT ON ROOM AIR WITH NO SIGNS OF RESPIRATORY DISTRESS PRESENT AT THIS TIME, WITH NON-LABORED BREATHING, AND NON-PRODUCTIVE COUGH PRESENT. ON SHIRRING TENDER, NORMAL SINUS RHYTHM, 85. SKIN WARM AND DRY TO TOUCH. NO IV ACCESS PRESENT AT THIS TIME. PATIENT PRESENTS NO SIGNS OF PAIN OR DISCOMFORT AT THIS TIME, PROVIDED COMFORT MEASURES. SAFETY PRECAUTIONS IN PLACE WITH BED LOCKED, BED IN THE LOWEST POSITION, BED ALARM ON, BILATERAL SIDE RAILS UP, AND CALL LIGHT WITHIN EASY REACH OF PATIENT. WILL CONTINUE TO MONITOR PATIENT.
[2019-09-18 20:00] VITALS: BP 136/93
--- NOTE | 2019-09-18 20:13 | NUR ---
ROTARY SHEAR WORKER HELPER NOTES PATIENT'S REMOVED IV ACCESS DURING DAYSHIFT, TRIED MULTIPLE TIMES TO RE-INSERT NEW IV ACCESS LINE. UNABLE TO START IV ACCESS LINE. BLOOD TRANSFUSION NOT COMPLETED. WILL CONTINUE TO MONITOR PATIENT.
--- NOTE | 2019-09-18 20:40 | NUR ---
EMS HELICOPTER PILOT NOTES INFORMED DR CALLE THAT BLOOD TRANSFUSION WAS NOT COMPLETED DUE TO PATIENT REMOVING IV SITE ACCESS. ORDERED AM LABS. MD AWARE ABOUT NO IV ACCESS AND ORDERED MIDLINE IV. WILL CONTINUE TO MONITOR PATIENT.
[2019-09-18] MEDS: SENNOSIDES 8.6 MG TABLET PO SCH (21:45)
[2019-09-18] MEDS: GABAPENTIN 300 MG CAPSULE PO SCH (21:45)
[2019-09-18] MEDS: clonazePAM 0.5 MG TABLET PO SCH (21:45)
[2019-09-18] MEDS: NICOTINE PATCH (14MG) 14 MG PATCH.TD24 TD SCH (21:45)
[2019-09-19] VITALS: BP 112/72
[2019-09-19 04:00] VITALS: BP_SYST 112; BP_SYST 117; BP_DIAS 69; BP_DIAS 72
--- NOTE | 2019-09-19 06:37 | NUR ---
MANAGEMENT TRAINEE NOTES PATIENT IN BED SLEEPING, EASILY AWAKEN BY NAME AND LIGHT TOUCH. ON ROOM AIR WITH NO SIGNS OF RESPIRATORY DISTRESS, WITH EVEN NON-LABORED BREATHING. ON RETAIL SUPPORT SPECIALIST, 80'S. PATIENT SKIN KEPT CLEAN AND DRY. IV ACCESS KEPT CLEAN, DRY AND INTACT. DENIES PAIN AND DISCOMFORT AT THIS TIME. MET ALL OF PATIENT'S NEEDS. SAFETY PRECAUTIONS IN PLACE WITH BED LOCKED, BED IN THE LOWEST POSITION, BED ALARM ON, BILATERAL SIDE RAILS UP, AND CALL LIGHT WITHIN EASY REACH OF PATIENT. WILL ENDORSE PLAN OF CARE TO UPCOMING DAYSHIFT NURSE.
[2019-09-19 07:01] LABS: BASOPHILS # (AUTO) 0.1 /CMM (0.0-0.2); EOSINOPHILS % (AUTO) 0.4 % (0.0-6.0); HEMATOCRIT 26 % (33-45); HEMOGLOBIN 8.3 g/dL (11.5-14.8); LYMPHOCYTES # (AUTO) 2.3 /CMM (0.8-4.8); LYMPHOCYTES % (AUTO) 25.4 % (20.0-44.0); MEAN CORPUSCULAR HGB CONC 32 g/dl (31.0-36.0); MEAN CORPUSCULAR VOLUME 84 fL (82-100); MONOCYTES # (AUTO) 0.8 /CMM (0.1-1.30); MONOCYTES % (AUTO) 9.4 % (2.0-12.0); NEUTROPHILS # (AUTO) 5.7 /CMM (1.8-8.9); NEUTROPHILS % (AUTO) 63.8 % (43.0-81.0); PLATELET COUNT (AUTO) 762 /CMM (150-450); RED BLOOD CELL COUNT(AUTO) 3.11 MIL/uL (4.0-5.2)
[2019-09-19 07:08] LABS: CARBON DIOXIDE 18 mmol/L (21-32); CHLORIDE 105 mmol/L (98-107); CREATININE 0.4 mg/dL (0.6-1.3); GLUCOSE 72 mg/dL (74-106); POTASSIUM 3.7 mmol/L (3.5-5.1); SODIUM SERUM 135 mmol/L (136-145); UREA NITROGEN, BLOOD 7 mg/dL (7-18)
--- NOTE | 2019-09-19 07:10 | NUR ---
SECOND FLOOR OPERATOR OPENING NOTES RECEIVED PT IN BED RESTING AT THIS TIME. PT EASILY AROUSED. AO X 2. PT ON RA. NO SOB NOTED. RESPIRATIONS EVEN AND UNLABORED WITH EQUAL RISE AND FALL IN CHEST. NO S/S OF ANY ACUTE DISTRESS AT THIS TIME, PT ON EXTERNAL TELEMETRY FIBERGLASS AUTO BODY REPAIRER, SR 84. LTETY MIDLINE INTACT AND PATENT. NO C/O PAIN AT THIS TIME. SKIN KEPT CLEAN AND DRY. SAFETY PRECAUTIONS IN PLACE. BED IN LOWEST LOCKED POSITION, SIDE RAILS UP, BED ALARM ON, CALL LIGHT WITHIN REACH. WILL CONTINUE TO MONITOR
[2019-09-19 08:00] VITALS: BP 117/71
[2019-09-19] MEDS ORDERED: PANTOPRAZOLE 40 MG VIAL IV SCH (09:00)
[2019-09-19] MEDS: PANTOPRAZOLE 40 MG VIAL IV SCH ×2 (09:11→17:39)
[2019-09-19] MEDS: DOCUSATE SODIUM 250 MG CAPSULE PO SCH (09:11)
[2019-09-19] MEDS: NICOTINE PATCH (14MG) 14 MG PATCH.TD24 TD SCH (09:12)
[2019-09-19] MEDS: GABAPENTIN 300 MG CAPSULE PO SCH ×3 (09:12→17:39)
[2019-09-19] MEDS: ASCORBIC ACID 500 MG TABLET PO SCH (09:12)
[2019-09-19] MEDS: ESCITALOPRAM OXALATE (10 MG) 10 MG TABLET PO SCH (09:12)
[2019-09-19] MEDS: clonazePAM 0.5 MG TABLET PO SCH ×2 (09:12→17:40)
[2019-09-19] MEDS: CALCIUM CARB 250MG /VITAMIN D 1 UDTAB PO SCH (09:12)
[2019-09-19] MEDS: LORAZEPAM INJ 2 MG/ML VIAL IV PRN ×2 (10:36→17:38)
--- NOTE | 2019-09-19 10:36 | NUR ---
PT MOANING WITH S/S OF ANXIETY. ATIVAN 1MG IV ADMINISTERED.
--- NOTE | 2019-09-19 11:06 | NUR ---
PT COVID-19 SWAB DONE AND COLLECTED BY NURSE AT 11:06AM AND SEND TO LAB. PENDING RESULTS. WILL CONTINUE TO MONITOR
--- NOTE | 2019-09-19 12:15 | NUR ---
PT IS RELAXED AND AWAKE IN BED AT THIS TIME. WILL CONTINUE TO MONITOR
--- NOTE | 2019-09-19 13:00 | NUR ---
CLARIFIED PT'S CODE STATUS WITH ROSMEARIE ARAUJO. PER BRYCE, PT SHOULD BE ON FULL CODE Addendum: 09/19/19 at 1716 by HILDA CALLE RN DISREGARD. NOT FOR THIS PT
[2019-09-19 16:00] VITALS: BP 109/64
[2019-09-19] MEDS ORDERED: busPIRone HCL 10 MG TABLET PO SCH (17:00)
[2019-09-19] MEDS: busPIRone 5 MG TABLET PO SCH (17:39)
[2019-09-19] MEDS: ENSURE ENLIVE CHOC 237 ML CAN PO SCH (17:40)
--- NOTE | 2019-09-19 18:57 | NUR ---
MS RN CLOSING NOTES PT IN BED AWAKE AT THIS TIME. HOB ELEVATED TO SEMI FOWLERS. AO X 2. PT REMAINED STABLE THROUGHOUT SHIFT. NO SOB NOTED. RESPIRATIONS EVEN AND UNLABORED WITH EQUAL RISE AND FALL IN CHEST. NO S/S OF ANY ACUTE DISTRESS AT THIS TIME, LETTY MIDLINE INTACT AND PATENT. NO C/O PAIN AT THIS TIME. PT KEPT CLEAN AND DRY. ALL NEEDS ATTENDED TO ANTICIPATED PER ORDER. SAFETY PRECAUTIONS IN PLACE. BED IN LOWEST LOCKED POSITION, SIDE RAILS UP, BED ALARM ON, CALL LIGHT WITHIN REACH. WILL ENDORSE TO NIGHT NURSE FOR ELLIS
[2019-09-19 20:00] VITALS: BP 90/64
--- NOTE | 2019-09-19 20:00 | NUR ---
MS2: OPENING RECEIVED PT IN BED RESTING AT THIS TIME. PT EASILY AROUSED. AO X 2. PT ON RA. NO SOB NOTED. RESPIRATIONS EVEN AND UNLABORED. NO S/S OF ANY ACUTE DISTRESS. LETTY MIDLINE INTACT AND PATENT. NO C/O PAIN AT THIS TIME. SKIN KEPT CLEAN AND DRY. SAFETY PRECAUTIONS IN PLACE. BED IN LOWEST LOCKED POSITION, SIDE RAILS UP, BED ALARM ON, CALL LIGHT WITHIN REACH. WILL CONTINUE TO MONITOR
[2019-09-19] MEDS: SENNOSIDES 8.6 MG TABLET PO SCH (22:09)
[2019-09-20] MEDS: ACETAMINOPHEN 325 MG TABLET PO PRN ×2 (01:25→20:46)
--- NOTE | 2019-09-20 01:33 | NUR ---
MS2 NOTES: C/O OF BACK PAIN PT C/O OF LOWER BACK PAIN 3 OUT OF 10. OFFERED TYLENOL 650 MG PO PRN ORDERED. PT AGREED AND TOLERATED MEDICATION WELL.
[2019-09-20 02:21] LABS: OCCULT BLOOD STOOL NEGATIVE (NEGATIVE)
--- NOTE | 2019-09-20 06:31 | NUR ---
MS RN CLOSING NOTES PT IN BED SLEEPING COMFORTABLY. PT EASILY TO AWAKEN. HOB ELEVATED TO SEMI FOWLERS. AO X 2. PT REMAINED STABLE THROUGHOUT SHIFT. NO SOB NOTED. RESPIRATIONS EVEN AND UNLABORED WITH EQUAL RISE AND FALL IN CHEST. NO S/S OF ANY ACUTE DISTRESS AT THIS TIME, LETTY MIDLINE INTACT AND PATENT. NO C/O PAIN AT THIS TIME. PT KEPT CLEAN AND DRY. ALL NEEDS ATTENDED TO ANTICIPATED PER ORDER. SAFETY PRECAUTIONS IN PLACE. BED IN LOWEST LOCKED POSITION, SIDE RAILS UP, BED ALARM ON, CALL LIGHT WITHIN REACH.
[2019-09-20 06:57] LABS: BASOPHILS % (AUTO) 0.3 % (0.0-2.0); EOSINOPHILS % (AUTO) 0.5 % (0.0-6.0); HEMATOCRIT 26 % (33-45); HEMOGLOBIN 8.2 g/dL (11.5-14.8); LYMPHOCYTES # (AUTO) 2.2 /CMM (0.8-4.8); LYMPHOCYTES % (AUTO) 23.6 % (20.0-44.0); MEAN CORPUSCULAR HGB CONC 32 g/dl (31.0-36.0); MEAN CORPUSCULAR VOLUME 83 fL (82-100); MONOCYTES # (AUTO) 1.1 /CMM (0.1-1.30); MONOCYTES % (AUTO) 11.6 % (2.0-12.0); PLATELET COUNT (AUTO) 699 /CMM (150-450); RED BLOOD CELL COUNT(AUTO) 3.09 MIL/uL (4.0-5.2); WHITE BLOOD COUNT (AUTO) 9.4 K/uL (4.3-11.0)
[2019-09-20 07:15] LABS: CALCIUM, SERUM 7.9 mg/dL (8.5-10.1); CARBON DIOXIDE 23 mmol/L (21-32); CHLORIDE 107 mmol/L (98-107); CREATININE 0.5 mg/dL (0.6-1.3); GLUCOSE 94 mg/dL (74-106); POTASSIUM 3.1 mmol/L (3.5-5.1); SODIUM SERUM 139 mmol/L (136-145); UREA NITROGEN, BLOOD 7 mg/dL (7-18)
--- NOTE | 2019-09-20 07:30 | NUR ---
MS RN NOTES-- RECEIVED CALL FROM LAB STATING PT IS POSITIVE FOR COVID-19. CHARGE NURSE MADE AWARE.
[2019-09-20 08:00] VITALS: BP 100/73
[2019-09-20] MEDS: ENSURE ENLIVE CHOC 237 ML CAN PO SCH ×3 (08:00→16:44)
--- NOTE | 2019-09-20 08:20 | NUR ---
TRANSFER NOTE TRANSFERRED PT TO 205 D/T POSITIVE COVID-19. BEDSIDE REPORT ENDORSEMENT GIVEN TO FENG MCGUIRE. PT IS A/O X2, AFEBRILE. RESPIRATIONS ARE EVEN AND UNLABORED, NOT IN ANY ACUTE DISTRESS NOTED. PT NOTED WITH NONPRODUCTIVE COUGH. MIDLINE TO LETTY INTACT, NO INFILTRATION NOTED. DRESSING KEPT CDI. SKIN CDI. PROVIDED PT WITH MASK AND NEW BLANKET FOR TRANSFER. .PT TRANSFERRED VIA GURNEY IN STABLE CONDITION. ON CARDIAC MONITORED, NSR.
[2019-09-20] MEDS: CALCIUM CARB 250MG /VITAMIN D 1 UDTAB PO SCH (09:37)
[2019-09-20] MEDS: FLUCONAZOLE (100 MG) 100 MG TABLET PO SCH (09:37)
[2019-09-20] MEDS: clonazePAM 0.5 MG TABLET PO SCH ×2 (09:37→16:44)
[2019-09-20] MEDS: ASCORBIC ACID 500 MG TABLET PO SCH (09:37)
[2019-09-20] MEDS: DOCUSATE SODIUM 250 MG CAPSULE PO SCH (09:37)
[2019-09-20] MEDS: NICOTINE PATCH (14MG) 14 MG PATCH.TD24 TD SCH (09:37)
[2019-09-20] MEDS: busPIRone 5 MG TABLET PO SCH ×2 (09:37→16:44)
[2019-09-20] MEDS: PANTOPRAZOLE 40 MG VIAL IV SCH ×2 (09:37→16:43)
[2019-09-20] MEDS: GABAPENTIN 300 MG CAPSULE PO SCH ×3 (09:43→16:44)
[2019-09-20] MEDS: ESCITALOPRAM OXALATE (10 MG) 10 MG TABLET PO SCH (09:43)
[2019-09-20] MEDS: POTASSIUM CHLORIDE 20 MEQ TAB.PRT.SR PO SCH ×2 (11:47→12:42)
[2019-09-20] MEDS: SOD FERRIC GLUC 125 MG in IV NS 0.9% 100 ML IV SCH (14:30)
[2019-09-20 16:00] VITALS: BP 132/80
--- NOTE | 2019-09-20 19:45 | NUR ---
HAND LEATHER TRIMMER OPENING NOTES: RECEIVED PT ON ROOM AIR AND IS TOLERATING WELL. PT IS A/XO2. PT APPEARS TO BE CONFUSED. PT ON TELE BOX AND READING SHOWS ST 101 AT THIS TIME. PT HAS LETTY MIDLINE #18G AND IS PATENT AND INTACT. CURRENTLY H/L. BED KEPT IN LOW, LOCKED POSITOIN, AND SIDE RAILS X 3UP. WILL CONTINUE TO MONITOR PT.
[2019-09-20 20:00] VITALS: BP 137/83
--- NOTE | 2019-09-20 20:46 | NUR ---
INSPECTOR CANNED FOOD RECONDITIONING NOTES: PT ADMINISTERED TYLENOL 650MG PO FOR LOWER BACK PAIN. WILL CONTINUE TO MONITOR.
[2019-09-20] MEDS: SENNOSIDES 8.6 MG TABLET PO SCH (21:08)
[2019-09-20] MEDS: TEMAZEPAM 7.5 MG CAPSULE PO PRN (23:38)
--- NOTE | 2019-09-20 23:43 | NUR ---
YARDER NOTES: PT KEEPS CRYING OUT. WHEN ASKED PT WHAT SHE WANTED, SHE WANTS A SLEEPING PILL. PT WAS ADMINISTERED RESTORIL 7.5MG PO. WILL CONTINUE TO MONITOR PT.
[2019-09-21] VITALS (7 sets, daily range): BP systolic 98–142; BP diastolic 63–82
--- NOTE | 2019-09-21 07:27 | NUR ---
EXTRUSION MANAGER CLOSING NOTES: ALL NEEDS WERE ATTENDED AND ANTICIPATED FOR. PT KEPT CLEAN, DRY, AND COMFORTABLE. NO SOB NOTED. PT ON ROOM AIR AND IS TOLERATING WELL. NO S/S OF DISTRESS. PT HAS LETTY MIDLINE AND IS PATENT AND INTACT. CURRENTLY H/L. BED KEPT IN LOW, LOCKED POSITION, AND SIDE RAILS X 3 UP. BED ALARM ACTIVATED. PT REORIENTED THROUGHOUT SHIFT. PT A/OX2-3. ENDORSED TO AM NURSEKARLOS RN FOR ELLIS.
--- NOTE | 2019-09-21 07:41 | NUR ---
ASPHALT BLENDER OPENING NOTE Patient is in bed, A/O x1-2, confused, yelling, and anxious, showing no signs of acute distress, breathing is even and labored, saturating 96% on RA. Tele monitor ST 120s. LETTY midline noted #18g is clean and intact flushing well. Bed is in lowest position, side rails x3 in upright position, call light is within reach. Fall, safety, and aspiration precautions enforced. Will continue with plan of care.
[2019-09-21] MEDS: FLUCONAZOLE (100 MG) 100 MG TABLET PO SCH (08:10)
[2019-09-21] MEDS: PANTOPRAZOLE 40 MG VIAL IV SCH ×2 (08:10→16:12)
[2019-09-21] MEDS: ASCORBIC ACID 500 MG TABLET PO SCH (08:11)
[2019-09-21] MEDS: NICOTINE PATCH (14MG) 14 MG PATCH.TD24 TD SCH (08:11)
[2019-09-21] MEDS: DOCUSATE SODIUM 250 MG CAPSULE PO SCH (08:11)
[2019-09-21] MEDS: GABAPENTIN 300 MG CAPSULE PO SCH ×3 (08:11→16:12)
[2019-09-21] MEDS: ESCITALOPRAM OXALATE (10 MG) 10 MG TABLET PO SCH (08:11)
[2019-09-21] MEDS: clonazePAM 0.5 MG TABLET PO SCH ×2 (08:11→16:12)
[2019-09-21] MEDS: ENSURE ENLIVE CHOC 237 ML CAN PO SCH ×3 (08:11→16:13)
[2019-09-21] MEDS: CALCIUM CARB 250MG /VITAMIN D 1 UDTAB PO SCH (08:11)
[2019-09-21] MEDS: busPIRone 5 MG TABLET PO SCH ×2 (08:11→16:13)
--- NOTE | 2019-09-21 08:30 | NUR ---
CAPABILITY LEAD NOTE NON-ADMIN COLACE PATIENT REFUSED, STATED SHE HAS HAD FREQUENT BOWEL MOVEMENTS.
[2019-09-21] MEDS: SOD FERRIC GLUC 125 MG in IV NS 0.9% 100 ML IV SCH (14:04)
[2019-09-21 17:13] LABS: BASOPHILS % (AUTO) 0.5 % (0.0-2.0); EOSINOPHILS % (AUTO) 0.4 % (0.0-6.0); HEMATOCRIT 25 % (33-45); LYMPHOCYTES # (AUTO) 2.1 /CMM (0.8-4.8); LYMPHOCYTES % (AUTO) 21.7 % (20.0-44.0); MEAN CORPUSCULAR HGB CONC 32 g/dl (31.0-36.0); MEAN CORPUSCULAR VOLUME 84 fL (82-100); MONOCYTES % (AUTO) 10.7 % (2.0-12.0); NEUTROPHILS # (AUTO) 6.4 /CMM (1.8-8.9); NEUTROPHILS % (AUTO) 66.7 % (43.0-81.0); PLATELET COUNT (AUTO) 720 /CMM (150-450); RED BLOOD CELL COUNT(AUTO) 2.99 MIL/uL (4.0-5.2); WHITE BLOOD COUNT (AUTO) 9.6 K/uL (4.3-11.0)
[2019-09-21 17:23] LABS: CALCIUM, SERUM 8.5 mg/dL (8.5-10.1); CARBON DIOXIDE 21 mmol/L (21-32); CHLORIDE 102 mmol/L (98-107); CREATININE 0.5 mg/dL (0.6-1.3); GLUCOSE 92 mg/dL (74-106); POTASSIUM 3.5 mmol/L (3.5-5.1); SODIUM SERUM 136 mmol/L (136-145); UREA NITROGEN, BLOOD 6 mg/dL (7-18)
--- NOTE | 2019-09-21 19:27 | NUR ---
CRANE OPERATOR CLOSING NOTE Patient is in bed, A/O x1-2, confused, yelling, and anxious, showing no signs of acute distress, breathing is even and labored, saturating 96% on RA. Tele monitor SR 90s when asleep and ST 110-120 when awake. LETTY midline noted #18g is clean and intact flushing well s/l. All patient needs met, all due medications given. Patient kept clean and dry throughout shift. Bed is in lowest position, side rails x3 in upright position, call light is within reach. Fall, safety, and aspiration precautions enforced. Will endorse to maintenance supervisor 2nd shift.
--- NOTE | 2019-09-21 19:50 | NUR ---
PLANNING OFFICIAL NOTES PATIENT IN BED, AWAKE, ALERT AND ORIENTED X 1-2. BREATHING EVEN AND UNLABORED ON ROOM AIR. SHOWS NO SIGNS OF ACUTE RESPIRATORY DISTRESS, NO ACUTE PAIN. TELE MONITOR ST 100. IV ON LETTY MIDLINE 18 SL. SHOWS NO SIGNS OF INFILTRATION, NO REDNESS. SAFETY PRECAUTIONS IN PLACE. BED IN LOWEST POSITION, LOCKED, AND CALL LIGHT KEPT WITHIN REACH. WILL CONTINUE TO MONITOR.
[2019-09-21] MEDS: LORAZEPAM INJ 2 MG/ML VIAL IV PRN (20:29)
--- NOTE | 2019-09-21 20:29 | NUR ---
DYE REEL OPERATOR NOTES PATIENT GIVEN PRN ATIVAN AT 2028. PT KEPT SCREAMING.
[2019-09-21] MEDS: SENNOSIDES 8.6 MG TABLET PO SCH (21:40)
[2019-09-22] VITALS (7 sets, daily range): BP systolic 109–157; BP diastolic 72–80
--- NOTE | 2019-09-22 06:49 | NUR ---
GOLF STARTER AND RANGER NOTES PATIENT IN BED, ASLEEP, ALERT AND ORIENTED X 1-2. BREATHING EVEN AND UNLABORED ON ROOM AIR. SHOWS NO SIGNS OF ACUTE RESPIRATORY DISTRESS, NO ACUTE PAIN. TELE MONITOR ST 100. IV ON LETTY MIDLINE 18 SL. SHOWS NO SIGNS OF INFILTRATION, NO REDNESS. ALL DUE MEDICATIONS GIVEN. SAFETY PRECAUTIONS IN PLACE. BED IN LOWEST POSITION, LOCKED, AND CALL LIGHT KEPT WITHIN REACH. WILL ENDORSE TO ONCOMING NURSE.
[2019-09-22] MEDS: clonazePAM 0.5 MG TABLET PO SCH ×2 (08:13→16:45)
[2019-09-22] MEDS: PANTOPRAZOLE 40 MG VIAL IV SCH ×2 (08:13→16:45)
[2019-09-22] MEDS: ENSURE ENLIVE CHOC 237 ML CAN PO SCH ×3 (08:13→17:00)
[2019-09-22] MEDS: FLUCONAZOLE (100 MG) 100 MG TABLET PO SCH (08:14)
[2019-09-22] MEDS: ASCORBIC ACID 500 MG TABLET PO SCH (08:14)
[2019-09-22] MEDS: CALCIUM CARB 250MG /VITAMIN D 1 UDTAB PO SCH (08:14)
[2019-09-22] MEDS: busPIRone 5 MG TABLET PO SCH ×2 (08:14→16:45)
[2019-09-22] MEDS: DOCUSATE SODIUM 250 MG CAPSULE PO SCH (08:14)
[2019-09-22] MEDS: GABAPENTIN 300 MG CAPSULE PO SCH ×3 (08:16→16:45)
[2019-09-22] MEDS: ESCITALOPRAM OXALATE (10 MG) 10 MG TABLET PO SCH (08:16)
[2019-09-22] MEDS: NICOTINE PATCH (14MG) 14 MG PATCH.TD24 TD SCH (09:00)
[2019-09-22] MEDS: LORAZEPAM INJ 2 MG/ML VIAL IV PRN ×2 (10:50→20:32)
[2019-09-22] MEDS: SOD FERRIC GLUC 125 MG in IV NS 0.9% 100 ML IV SCH (13:48)
--- NOTE | 2019-09-22 16:53 | NUR ---
received call from lab ; patient positive for COVID -19 ( second swab)
--- NOTE | 2019-09-22 18:10 | NUR ---
Patient pulled out Midline due to agitation. Will attempt to insert a new IV line
--- NOTE | 2019-09-22 19:46 | NUR ---
Patient is in bed, A/O x1-2, confused, yelling, and anxious, agitated .Showing no signs of acute distress, breathing is even and labored, saturating 96% on RA. Tele monitor Sr hr 89-105 . LETTY midline pulled out. All patient needs met, all due medications given. Patient kept clean and dry throughout shift. Bed is in lowest position, side rails x3 in upright position, call light is within reach. Fall, safety, and aspiration precautions in place. Will endorse to next shift for ELLIS
--- NOTE | 2019-09-22 19:50 | NUR ---
MS RN OPENING NOTES RECEIVED PATIENT FROM MORNING SHIFT, ALERT AND ORIENTED X 1-2 CONFUSED, SCREAMING. BREATHING REGULAR AND UNLABORED ON ROOM AIR. NO IV ACCESS. NO S/S OF PAIN/DISCOMFORT NOTED AT THIS TIME. BED LOW AND LOCKED ON SEMI FOWLERS POSITION. CALL LIGHT IN REACH. WILL CONTINUE TO MONITOR.
[2019-09-22] MEDS: SENNOSIDES 8.6 MG TABLET PO SCH (21:40)
[2019-09-22] MEDS: TEMAZEPAM 7.5 MG CAPSULE PO PRN (21:40)
--- NOTE | 2019-09-22 22:00 | NUR ---
MS RN NOTES RESTORIL 7.5MG GIVEN BY MOUTH FOR INABILITY TO STAY ASLEEP, SCREAMING. NON-PHARMACOLOGICAL INTERVENTIONS PROVIDED. WILL CONTINUE TO MONITOR.
[2019-09-23] VITALS: BP 127/79
--- NOTE | 2019-09-23 03:00 | NUR ---
MS RN NOTES UNABLE TO INSERT A NEW IV LINE, PATIENT TOO AGITATED FOR REINSERTION ALSO REMOVED NEWLY REINSERTED LINE. RISK AND BENEFITS EXPLAINED. WILL CONTINUE TO MONITOR.
[2019-09-23 04:00] VITALS: BP 135/85
--- NOTE | 2019-09-23 06:25 | NUR ---
MS RN CLOSING NOTES PATIENT IN BED ASLEEP. AFEBRILE WITH NO S/S OF DISTRESS OBSERVED. NO IV ACCESS. NO S/S OF PAIN/DISCOMFORT NOTED AT THIS TIME. BED LOW AND LOCKED ON SEMI FOWLERS POSITION. CALL LIGHT IN REACH. WILL ENDORSE TO MORNING SHIFT FOR ELLIS.
--- NOTE | 2019-09-23 07:30 | NUR ---
MS/RN Opening Note Received patient AO x 1-2, confused, able to responds all stimuli. Does no appears pain or any discomfort. Respiratory even and unlabored with room air, O2sat 100%, no cough observed. Skin is warm to touch, kept clean/dry, pt has no intact IV site due to pulled out since previous shift . Keep low position of bed with locked wheel and elevated head of bed for secure airway and bed alarm is on. Call light within reach, will continue to monitor.
[2019-09-23 08:00] VITALS: BP 138/86
[2019-09-23] MEDS: ENSURE ENLIVE CHOC 237 ML CAN PO SCH ×2 (08:00→12:00)
[2019-09-23] MEDS: ESCITALOPRAM OXALATE (10 MG) 10 MG TABLET PO SCH ×2 (09:00→09:23)
[2019-09-23] MEDS: DOCUSATE SODIUM 250 MG CAPSULE PO SCH ×2 (09:00→09:23)
[2019-09-23] MEDS: ASCORBIC ACID 500 MG TABLET PO SCH ×2 (09:00→09:24)
[2019-09-23] MEDS: FLUCONAZOLE (100 MG) 100 MG TABLET PO SCH ×2 (09:00→09:23)
[2019-09-23] MEDS: PANTOPRAZOLE 40 MG VIAL IV SCH (09:00)
[2019-09-23] MEDS: CALCIUM CARB 250MG /VITAMIN D 1 UDTAB PO SCH ×2 (09:00→09:24)
[2019-09-23] MEDS: NICOTINE PATCH (14MG) 14 MG PATCH.TD24 TD SCH (09:19)
[2019-09-23] MEDS: GABAPENTIN 300 MG CAPSULE PO SCH ×2 (09:23→12:57)
[2019-09-23] MEDS: busPIRone 5 MG TABLET PO SCH (09:24)
[2019-09-23] MEDS: clonazePAM 0.5 MG TABLET PO SCH (09:24)
[2019-09-23] MEDS ORDERED: LORAZEPAM INJ 2 MG/ML VIAL IM PRN (12:30)
[2019-09-23] MEDS: SOD FERRIC GLUC 125 MG in IV NS 0.9% 100 ML IV SCH (14:00)
--- NOTE | 2019-09-23 15:20 | NUR ---
Patient going discharge to [facility] ordered by Dr. Gutierrez, given report Carmina/RN.
[2019-09-23 16:00] VITALS: BP 125/78
--- NOTE | 2019-09-23 18:50 | NUR ---
2 director software quality assurance picked up patient to the [facility], pt in stable condition.
== END 2019-09-23 18:50 | DRG 811 ==
LOC: ER 12:14 → TELE 14:05 → MED 09-19 08:44 → TELE2 09-20 08:01
PROVIDERS: ADMIT General Practice; ATTEND General Practice
PROC: 30233N1 Transfusion of Nonautologous Red Blood Cells into Peripheral Vein, Percutaneous Approach (ICD-10-PCS; principal; 2019-09-18)
PROC: 05HY33Z Insertion of Infusion Device into Upper Vein, Percutaneous Approach (ICD-10-PCS; 2019-09-18)
DX: D50.0 Iron deficiency anemia secondary to blood loss (chronic) (principal); U07.1 COVID-19; K22.10 Ulcer of esophagus without bleeding; B37.81 Candidal esophagitis; E46 Unspecified protein-calorie malnutrition; F11.20 Opioid dependence, uncomplicated; R62.7 Adult failure to thrive; F32.9 Major depressive disorder, single episode, unspecified; E11.9 Type 2 diabetes mellitus without complications; J44.9 Chronic obstructive pulmonary disease, unspecified; K21.0 Gastro-esophageal reflux disease with esophagitis; G89.29 Other chronic pain; M79.7 Fibromyalgia; Z98.84 Bariatric surgery status; Z88.1 Allergy status to other antibiotic agents; Z96.641 Presence of right artificial hip joint; Z88.0 Allergy status to penicillin; Z88.2 Allergy status to sulfonamides; Z88.7 Allergy status to serum and vaccine; Z79.899 Other long term (current) drug therapy; Z87.891 Personal history of nicotine dependence; M81.0 Age-related osteoporosis without current pathological fracture; Z87.19 Personal history of other diseases of the digestive system; M19.90 Unspecified osteoarthritis, unspecified site; Z74.09 Other reduced mobility; Z86.010 Personal history of colon polyps; E87.6 Hypokalemia; E78.5 Hyperlipidemia, unspecified; F12.90 Cannabis use, unspecified, uncomplicated; I11.0 Hypertensive heart disease with heart failure; I50.9 Heart failure, unspecified
CPT/HCPCS: 36415; 71045-TC; 80048-TC; 80076-TC; 82272-TC; 82728-TC; 83540-TC; 85025-TC; 85610-TC; 86850-TC; 86921-TC; 87081-TC; C9113; G0378; J2060; J2916; J7030; J7040; P9016-BL